=== PATIENT | female | born 1950 | race Caucasian/White ===

== ENCOUNTER 2024-10-24 08:32 | Outpatient (CLI) | payer MEDICARE, MEDICAID, SELFPAY ==
--- OUTSIDE RECORDS SUMMARY | 2024-10-24 08:59 | XMS_ITS ---
Author Organization [facility] Address [address] [place] [address] Phone Care Team Providers Care Tablet Technician Name Role Phone DANIEL DAWSON, DYLON Meadows Unavailable [phone] Problems Includes: Active, inactive, and resolved Problems All Visits Onset Date Resolved Date Provider Condition S tatus Osteopenia 07/19/2016 COREY NOLEN RN [facility] Active Last Documented On 6 10:34AM ; [facility] Dementia 07/19/2016 COREY NOLEN RN [facility] Active Last Documented On 6 10:34AM ; [facility] Intellectual Disabilities 07/19/2016 COREY VUONG RN [facility] Active Last Documented On 6 10:34AM ; [facility] Esophagitis Chronic Reflux 07/19/2016 COREY YANG RN [facility] Active Last Documented On 6 10:36AM ; [facility] Plan of Treatment Findings Encounter Date Ordered Clinical summary pro vided to patient ANNUAL SWAGE TOOLSETTER EXAM with COREY NOLEN RN [facility] 07/25/2018 Last Documented On 8 9:19AM ; [facility] Ordered weight loss diet ANNUAL SWAGE TOOLSETTER EXAM with JENNIFER NOLEN RN [facility] 07/25/2018 Last Documented On 8 9:19AM ; [facility] Ordered Clinical summary pro vided to patient NEW ORNAMENTAL METAL WORKER EXAM with COREY NOLEN RN [facility] 07/19/2016 Last Documented On 6 10:56AM ; [facility] Instructions to patient Instructions for patient : B reast Self Exam discussed and technique reviewed Last Documented On 8 9:05AM ; [facility] Instructed to call if excess osei bleeding or abdominal/pelvic pain Last Documented On 8 9:05AM ; [facility] Recommend diet and exercise at least 30 min three times per week Last Documented On 8 9:05AM ; [facility] Instructions For Patient: Mo nthly Self Breast Exam Last Documented On 6 10:38AM ; [facility] Recommend diet and exercise at least 30 min three times per week Last Documented On 6 10:38AM ; [facility] Education and Decision Aids were provided during visit for: Patient Education: Daily mookie cium and vitamin D Last Documented On 8 9:05AM ; [facility] Assessments Includes: Assessments for all patient encounters Findings Encounter Date NORMAL FEMALE EXAM ANNUAL SWAGE TOOLSETTER EXAM with COREY NOLEN RN [facility] 07/25/2018 Last Documented On 8 9:19AM ; [facility] Cutaneous candidiasis NEW ORNAMENTAL METAL WORKER EXAM with COREY NOLEN RN [facility] 07/19/2016 Last Documented On 6 10:56AM ; [facility] NORMAL FEMALE EXAM NEW ORNAMENTAL METAL WORKER EXAM with COREY ROBERTS RN [facility] 07/19/2016 Last Documented On 6 10:56AM ; [facility] Instructions Includes: Instructions for all patient encounters Instructions to patient Instructions for patient : B reast Self Exam discussed and technique reviewed Last Documented On 8 9:05AM ; [facility] Instructed to call if excess osei bleeding or abdominal/pelvic pain Last Documented On 8 9:05AM ; [facility] Recommend diet and exercise at least 30 min three times per week Last Documented On 8 9:05AM ; [facility] Instructions For Patient: Mo nthly Self Breast Exam Last Documented On 6 10:38AM ; [facility] Recommend diet and exercise at least 30 min three times per week Last Documented On 6 10:38AM ; [facility] Education and Decision Aids were provided during visit for: Patient Education: Daily mookie cium and vitamin D Last Documented On 8 9:05AM ; [facility] Medical Equipment - Implanted Devices Includes: Current and historical Devices No Medical Equipment Recorded Medications Includes: Current and historical Medications Current Medications (continue as prescribed) Diflucan 200MG Oral Tablet 07/25/2018 Provider: Diagnosis: One tablet by mouth daily every month on the Last Documented On 8 9:03AM By CHRIS ORTA ; [facility] Claritin 10MG Oral Tablet 07/25/2018 Provider: Diagnosis: Last Documented On 8 9:04AM By CHRIS ORTA ; [facility] Namenda XR 28MG Oral Capsule Extended Release 24 Hour 07/25/2018 Provider: Diagnosis: Last Documented On 8 9:04AM By CHRIS ORTA ; [facility] PriLOSEC OTC 20MG Oral Tablet Delayed Release 07/25/20 18 Provider: Diagnosis: Last Documented On 8 9:04AM By CHRIS ORTA ; [facility] [place] Nasal [place] 0.65% Solution 07/25/2018 Provider : Diagnosis: Last Documented On 8 9:04AM By CHRIS ORTA ; [facility] Oyst-Mookie-D 500 [id number] Oral Tablet 07/25/2018 Provider: Diagnosis: Last Documented On 8 9:05AM By CHRIS ORTA ; [facility] Aricept 10MG Oral Tablet 07/25/2018 Provider: Diagnosis: Last Documented On 8 9:05AM By CHRIS ORTA ; [facility] Tylenol 325MG Oral Capsule 07/25/2018 Provider: Diagnosis: Last Documented On 8 9:05AM By CHRIS ORTA ; [facility] Milk of Magnesia 7.75% Oral Suspension 07/25/2018 Pr ovider: Diagnosis: Last Documented On 8 9:05AM By CHRIS ORTA ; [facility] Robafen DM Clear 100-10MG/5ML Oral Syrup 07/25/2018 Provider: Diagnosis: Last Documented On 8 9:06AM By CHRIS ORTA ; [facility] Clotrimazole 1% External Cream 07/25/2018 Provider: Diagnosis: Last Documented On 8 9:06AM By CHRIS ORTA ; [facility] Triamcinolone Acetonide 0.1% External Cream 07/25/2018 Provider: Diagnosis: Last Documented On 8 9:07AM By CHRIS ORTA ; [facility] GNP Triple Antibiotic External Ointment 07/25/2018 P rovider: Diagnosis: Last Documented On 8 9:07AM By CHRIS ORTA ; [facility] Past Medications on file Nystatin [id number] UNIT/GM Cream 07/19/2016 - 08/02/2016 Provider: COREY NOLEN RN [facility] Diagnosis: Candidiasis of s kin and nail as directed APPLY 3 times da tung to affected area Last Documented On 6 10:55AM By COREY NOLEN [facility]- ; [facility] Medications Administered Includes: Administered Medications in patient's chart No Administered Medications Recorded Results Includes: Results from 10/25/2023 through 10/24/2024 No Results Recorded For Specified Dates History of Present Illness History of Present Illness not supported for this document type No History of Present Illness Recorded Social History Description Last Updated Alcohol use: 2 drinks or less per day no ne 07/25/2018 Last Documented On 8 9:19AM ; [facility] Non-smoker 07/25/2018 Last Documented On 8 9:19AM ; [facility] Activities 07/25/2018 Last Documented On 8 9:19AM ; [facility] Denied sexual activity 07/25/2018 Last Documented On 8 9:19AM ; [facility] Education history 07/25/2018 Last Documented On 8 9:19AM ; [facility] Not a smoker 07/25/2018 Last Documented On 8 9:19AM ; [facility] Not sexually active 07/25/2018 Last Documented On 8 9:19AM ; [facility] Personal history 07/25/2018 Last Documented On 8 9:19AM ; [facility] Single 07/25/2018 Last Documented On 8 9:19AM ; [facility] Smoking status : Former smoker 8 Last Documented On 8 9:19AM ; [facility] Procedures and Surgical History Surgical History Last Updated History of total abdominal h ysterectomy BSO 1992 unknown benign pathology 07/19/2016 Last Documented On 6 10:56AM ; [facility] History of hysterectomy 199207/19/2016 Last Documented On 6 10:56AM ; [facility] History of cholecystectomy 200307/19/20 16 Last Documented On 6 10:56AM ; [facility] Medical History Includes: Medical History in patient's chart Description Last Updated 0 07/25/2018 Last Documented On 8 9:19AM ; [facility] Patient recently had a dexa scan 016 07/25/2018 Last Documented On 8 9:19AM ; [facility] History of chronic reflux esophagitis Last Documented On 6 10:56AM ; [facility] A colonoscopy was performed 12/02/1512/2015 Last Documented On 6 10:56AM ; [facility] Last mammogram date: 12/15/2015 6 Last Documented On 6 10:56AM ; [facility] LMP: 199207/19/2016 Last Documented On 6 10:56AM ; [facility] Result: normal 07/19/2016 Last Documented On 6 10:56AM ; [facility] Family History Includes: Family History in patient's chart Description Last Updated Family history unchanged unknown 016 Last Documented On 6 10:56AM ; [facility] Review of Systems Review of Systems not supported for this document type No Review of Systems Recorded Mental Status Description Oriented to time, place, and person No anxiety A desire to continue living Functional Status No Functional Status Recorded Physical Exam Physical Exam not supported for this document type No Physical Exam Recorded Allergies Includes: Active, inactive, and resolved Allergies No Known Allergies Insurance Includes: Active Insurance Policies Plan Name Member ID Group # Subscriber Relationship Effect osei Dates 1 - [place]ARE [place] B [place] [id number] BRYAN K SUMMER Self 2 - IDPA MEDICARE SECONDARY NON [facility] [id number] BRYAN Han Clinical Notes Includes: Signed Clinical Notes starting from 09/03/2022 No Clinical Notes Recorded
--- OUTSIDE RECORDS SUMMARY | 2024-10-24 09:00 | XMS_ITS | Encounter Summary ---
Author Organization [facility] Address [address] [place] [address] Phone Care Team Providers Care Foreign Car Mechanic Name Role Phone Jeremias Dillon MD Unavailable [phone] Tashi Fuller MD Primary Care Provider [phone] Jeremias Dillon MD Primary Care Provider [phone] Encounter Details Date Type Department Care Team (Late st Contact Info) Description 05/19/2022 Lab Requisition [facility] Laboratory Services [address] [place] [phone] Tashi Fuller MD [address] [place] [address] [address] Encounter for screening for COVID-19 Social History Tobacco Use Types Packs/Day Years Used Date Smoking Tobacco: Never Smokeless Tobacco: Never Alcohol Use Standard Drinks/Week Comments Never 0 (1 standard drink = 0.6 oz pur e alcohol) AUDIT-C Answer Date Recorded Frequency of Alcohol Consumption Never 05/03/2019 Average Number of Drinks Not on file 019 Frequency of Binge Drinking Not on file 04/15 Comments No Sex and Gender Information Value Date Recorded Sex Assigned at Not on file Legal Sex Female 10:55 PM CDT Gender Identity Not on file Sexual Orientation Not on file documented as of this encounter Plan of Treatment Upcoming Encounters Date Type Department Care Team (Late st Contact Info) Description 11/15/2024 12:00 PM CDT [facility]ment [facility] [address] [place] [address] Jeremias Dillon MD [address] [place] [address] documented as of this encounter Procedures Procedure Name Priority Date/Time Associated Diagnosis Comments SARS-COV-2 BY MOLECULAR Routine 05/19/2022 7:30 AM CDT Encounter for screening for COVID-19 documented in this encounter Results * SARS-COV-2 BY MOLECULAR (05/19/2022 7:30 AM CDT) SARSCOV2 NOT DETECTED (Referen ce Range for this test is Not Detected ) [facility] THERMOFISHER FAST DX 05/20/2022 8:54 AM CDT [facility] Comment:This test was perfor med by a RT-PCR method. Other Non-Phlebotomy Collection / Unknown 05/19/2022 7:30 AM CDT 05/19/2022 1:38 PM CDT Narrative [facility] - 05/20/2022 8:54 AM CDT Authorized Fact Sheets about this test for providers and patients are available at: https://www.fda.gov/medical-devices/avgfrltam-evqkkbmlou-vqrbmtu-devices/emergen -us e-authorizations us Tashi Fuller MD MICROBIOLOGY - GENERAL ORDERAB LES Final Result [facility] [address] [place] [address], documented in this encounter Visit Diagnoses Diagnosis Encounter for screening for COVID-19 documented in this encounter Additional Health Concerns Infection Onset Date Last Indicated Resolved Time COVID - 19 12/16/2021 06/23/2022 07/03/2022 12:1 6 AM TERRITORY MANAGER COVID - 19 08/11/2022 10/27/2022 11/06/2022 12:1 6 AM CDT documented as of this encounter Care Teams Foreign Car Mechanic Relationship Specialty Start Date End Date Tashi Fuller MD [address] [place] [address] [address] [place] [address] PCP - General Family Medicine 04/13/22 07/04/23 Jeremias Dillon MD [address] [facility] [address] [place] [address] PCP - General Internal Medicine 07/05/23 Jeremias Dillon MD [address] [facility] [address] [place] [address] Internal Medicine 07/08/21 documented as of this encounter
--- OUTSIDE RECORDS SUMMARY | 2024-10-24 09:00 | XMS_ITS | Encounter Summary ---
Author Organization [facility] Address [address] [place] [address] Phone Care Team Providers Care Practical Ministries Professor Name Role Phone Jeremias Dillon MD Unavailable [phone] Tashi Fuller MD Primary Care Provider [phone] Jeremias Dillon MD Primary Care Provider [phone] Encounter Details Date Type Department Care Team (Late st Contact Info) Description 09/01/2022 Lab Requisition [facility] Laboratory Services [address] [place] [phone] Tashi Fuller MD [address] [place] [address] [address] Encounter for screening for COVID-19 [...] Info) Description 11/15/2024 12:00 PM CDT [facility] [address] [place] [address] Jeremias Dillon MD [address] [place] [address] documented as of this encounter Procedures Procedure Name Priority Date/Time Associated Diagnosis Comments SARS-COV-2 BY MOLECULAR Routine 09/01/2022 7:17 AM DENTAL AMALGAM PROCESSOR Encounter for screening for COVID-19 documented in this encounter Results * SARS-COV-2 BY MOLECULAR (09/01/2022 7:17 AM DENTAL AMALGAM PROCESSOR) SARSCOV2 NOT DETECTED (Referen ce Range for this test is Not Detected ) [facility] THERMOFISHER FAST DX 09/01/2022 8:36 PM DENTAL AMALGAM PROCESSOR [facility] Comment:This test was perfor med by a RT-PCR method. Other COVID 19 Collection / Unknown 09/01/2022 7:17 AM DENTAL AMALGAM PROCESSOR 09/01/2022 10:05 AM DENTAL AMALGAM PROCESSOR Narrative [facility] - 09/01/2022 8:36 PM DENTAL AMALGAM PROCESSOR Authorized Fact Sheets about this test for providers and patients are available at: https://www.fda.gov/medical-devices/jvqcudmta-hykmsyatbr-cdrpsoc-devices/emergen -us e-authorizations Result [facility] Tashi Fuller MD MICROBIOLOGY - GENERAL ORDERAB LES Final Result [facility] [address] [place] [address], documented in this encounter Visit Diagnoses Diagnosis Encounter for screening for COVID-19 documented in this encounter Additional Health Concerns Infection Onset Date Last Indicated Resolved Time COVID - 19 08/11/2022 10/27/2022 11/06/2022 12:1 6 AM CDT documented as of this encounter Care Teams Practical Ministries Professor Relationship Specialty Start Date End Date Tashi Fuller MD [address] [place] [address] [address] [place] [address] PCP - General Family Medicine 04/13/22 07/04/23 Jeremias Dillon MD [address] [place] [address] PCP - General Internal Medicine 07/05/23 Jeremias Dillon MD [address] [place] [address] Internal Medicine 07/08/21 documented as of this encounter
--- OUTSIDE RECORDS SUMMARY | 2024-10-24 09:00 | XMS_ITS | Encounter Summary ---
Author Organization [facility] Address [address] [place] [address] Phone Care Team Providers Care Macaroni Press Operator Name Role Phone Jeremias Dillon MD Unavailable [phone] Tashi Fuller MD Primary Care Provider [phone] Jeremias Dillon MD Primary Care Provider [phone] Encounter Details Date Type Department Care Team (Late st Contact Info) Description 10/06/2022 Lab Requisition [facility] Laboratory Services [address] [place] [phone] Tashi Fuller MD [address] [place] [address] [address] Encounter for screening for COVID-19 [...] Info) Description 11/15/2024 12:00 PM CDT [facility] [address] [place] [address] Jeremias Dillon MD [address] [place] [address] documented as of this encounter Procedures Procedure Name Priority Date/Time Associated Diagnosis Comments SARS-COV-2 BY MOLECULAR Routine 10/06/2022 7:35 AM LINUX PROGRAMMER Encounter for screening for COVID-19 documented in this encounter Results * SARS-COV-2 BY MOLECULAR (10/06/2022 7:35 AM LINUX PROGRAMMER) SARSCOV2 NOT DETECTED (Referen ce Range for this test is Not Detected ) [facility] THERMOFISHER FAST DX 10/07/2022 12:34 AM LINUX PROGRAMMER [facility] Comment:This test was perfor med by a RT-PCR method. Other Non-Phlebotomy Collection / Unknown 10/06/2022 7:35 AM LINUX PROGRAMMER 10/06/2022 10:23 AM LINUX PROGRAMMER Narrative [facility] - 10/07/2022 12:34 AM LINUX PROGRAMMER Authorized Fact Sheets about this test for providers and patients are available at: https://www.fda.gov/medical-devices/oxemwfnqn-darlmlhlrf-zfdgwsl-devices/emergen -us e-authorizations Result [facility] Tashi Fuller MD MICROBIOLOGY - GENERAL ORDERAB LES Final Result [facility] [address] [place] [address], documented in this encounter Visit Diagnoses Diagnosis Encounter for screening for COVID-19 documented in this encounter Additional Health Concerns Infection Onset Date Last Indicated Resolved Time COVID - 19 08/11/2022 10/27/2022 11/06/2022 12:1 6 AM CDT documented as of this encounter Care Teams Macaroni Press Operator Relationship Specialty Start Date End Date Tashi Fuller MD [address] [place] [address] [address] [place] [address] PCP - General Family Medicine 04/13/22 07/04/23 Jeremias Dillon MD [address] [place] [address] PCP - General Internal Medicine 07/05/23 Jeremias Dillon MD [address] [place] [address] Internal Medicine 07/08/21 documented as of this encounter
--- OUTSIDE RECORDS SUMMARY | 2024-10-24 09:00 | XMS_ITS | Encounter Summary ---
Author Organization [facility] Address [address] [place] [address] Phone Care Team Providers Care Screen Printing Machine Operator Helper Name Role Phone Provider, Unknown Primary Care Provider Unavaila ble Jeremias Dillon MD Unavailable [phone] Tashi Fuller MD Primary Care Provider [phone] Jeremias Dillon MD Primary Care Provider [phone] Encounter Details Date Type Department Care Team (Late st Contact Info) Description 07/15/2021 Lab Requisition [facility] Laboratory Services [address] [place] [phone] Tashi Fuller MD [address] [place] [address] [facility] [address] [place] [address] Social History Tobacco Use Types Packs/Day Years [...] Info) Description 11/15/2024 12:00 PM CDT [facility] [address] [place] [phone] Jeremias Dillon MD [address] [place] [address] documented as of this encounter Procedures Procedure Name Priority Date/Time Associated Diagnosis Comments SARS-COV-2 BY MOLECULAR Routine 07/15/2021 7:21 AM LINE MOVER documented in this encounter Results * SARS-COV-2 BY MOLECULAR (07/15/2021 7:21 AM LINE MOVER) SARSCOV2 NOT DETECTED (Referen ce Range for this test is Not Detected ) [facility] THERMOFISHER FAST DX 07/15/2021 11:54 PM LINE MOVER [facility] Comment:This test was perfor med by a RT-PCR method. Other Non-Phlebotomy Collection / Unknown 07/15/2021 7:21 AM LINE MOVER 07/15/2021 11:24 AM LINE MOVER Narrative [facility] - 07/15/2021 11:54 PM LINE MOVER Authorized Fact Sheets about this test for providers and patients are available at: https://www.fda.gov/medical-devices/gepoicxlx-ealasprmsx-pzqcpfy-devices/emergen -us e-authorizations Tashi Fuller MD MICROBIOLOGY - GENERAL ORDERAB LES Final Result [facility] [address] [place] [address], documented in this encounter Visit Diagnoses Not on filedocumented in this encounter Additional Health Concerns Infection Onset Date Last Indicated Resolved Time COVID - 19 05/13/2021 08/19/2021 08/21/2021 7:20 PM LINE MOVER COVID - 19 07/08/2021 08/19/2021 08/21/2021 7:20 PM LINE MOVER COVID - 19 Confirmed 08/19/2021 08/26/2021 022 12:16 AM LINE MOVER COVID - 19 08/26/2021 08/26/2021 08/28/2021 6:12 AM LINE MOVER COVID - 19 09/23/2021 09/23/202110/1310/13/2021 12:1 6 AM LINE MOVER COVID - 19 12/02/2021 12/02/2021 12/02/2021 11:1 1 PM CDT COVID - 19 Confirmed 12/02/2021 12/02/2021 022 12:16 AM CDT COVID - 19 12/16/2021 06/23/2022 07/03/2022 12:1 6 AM LINE MOVER COVID - 19 08/11/2022 10/27/2022 11/06/2022 12:1 6 AM CDT documented as of this encounter Care Teams Screen Printing Machine Operator Helper Relationship Specialty Start Date End Date Provider, Unknown UNKNOWN PCP - General 07/08/21 04/12/22 Tashi Fuller MD [address] [facility] [address] [place] [address] PCP - General Family Medicine 04/13/22 07/04/23 Jeremias Dillon MD [address] [facility] [address] [place] [address] PCP - General Internal Medicine 07/05/23 Jeremias Dillon MD [address] [facility] [address] [place] [address] Internal Medicine 07/08/21 documented as of this encounter
--- OUTSIDE RECORDS SUMMARY | 2024-10-24 09:00 | XMS_ITS | Encounter Summary ---
Author Organization [facility] Address [address] [place] [address] Phone Care Team Providers Care Fruit Grader Operator Name Role Phone Provider, Unknown Primary Care Provider Unavaila ble Jeremias Dillon MD Unavailable [phone] Tashi Fuller MD Primary Care Provider [phone] Jeremias Dillon MD Primary Care Provider [phone] Encounter Details Date Type Department Care Team (Late st Contact Info) Description 04/07/2022 Lab Requisition [facility] Laboratory Services 1 [place] [phone] Tashi Fuller MD [address] [place] [address] [facility] [address] [place] [address] Encounter for screening for COVID-19 Social [...] Info) Description 11/15/2024 12:00 PM CDT [facility]ointment [facility] 1 [place] [phone] Jeremias Dillon MD [address] [place] [address] documented as of this encounter Procedures Procedure Name Priority Date/Time Associated Diagnosis Comments SARS-COV-2 BY MOLECULAR Routine 04/07/2022 6:55 AM CDT Encounter for screening for COVID-19 documented in this encounter Results * SARS-COV-2 BY MOLECULAR (04/07/2022 6:55 AM CDT) SARSCOV2 NOT DETECTED (Referen ce Range for this test is Not Detected ) [facility] THERMOFISHER FAST DX 04/08/2022 8:39 AM CDT [facility] Comment:This test was perfor med by a RT-PCR method. Other Non-Phlebotomy Collection / Unknown 04/07/2022 6:55 AM CDT 04/07/2022 11:33 AM CDT Narrative [facility] - 04/08/2022 8:39 AM CDT Authorized Fact Sheets about this test for providers and patients are available at: https://www.fda.gov/medical-devices/aierdpdzl-dmoptersia-nmtanzm-devices/emergen -us e-authorizations us Tashi Fuller MD MICROBIOLOGY - GENERAL ORDERAB LES Final Result [facility] [address] [place] [address], documented in this encounter Visit Diagnoses Diagnosis Encounter for screening for COVID-19 documented in this encounter Additional Health Concerns Infection Onset Date Last Indicated Resolved Time COVID - 19 12/16/2021 06/23/2022 07/03/2022 12:1 6 AM ELECTRONIC MAINTENANCE SUPERVISOR COVID - 19 08/11/2022 10/27/2022 11/06/2022 12:1 6 AM CDT documented as of this encounter Care Teams Fruit Grader Operator Relationship Specialty Start Date End Date Provider, Unknown UNKNOWN PCP - General 07/08/21 04/12/22 Tashi Fuller MD [address] [facility] [address] [place] [address] PCP - General Family Medicine 04/13/22 07/04/23 Jeremias Dillon MD [address] [facility] 160 [place] [address] PCP - General Internal Medicine 07/05/23 Jeremias Dillon MD [address] [facility] 160 [place] [address] Internal Medicine 07/08/21 documented as of this encounter
--- OUTSIDE RECORDS SUMMARY | 2024-10-24 09:00 | XMS_ITS | Encounter Summary ---
Author Organization [facility] Address [address] [place] [address] Phone Care Team Providers Care Clinical Research Assistant Name Role Phone Provider, Unknown Primary Care Provider Unavaila ble Jeremias Dillon MD Unavailable [phone] Tashi Fuller MD Primary Care Provider [phone] Jeremias Dillon MD Primary Care Provider [phone] Encounter Details Date Type Department Care Team (Late st Contact Info) Description 02/17/2022 Lab Requisition [facility] Laboratory Services 1 [place] [phone] Tashi Fuller MD [address] [place] [address] [facility] [address] [place] [address] Encounter for screening for COVID-19 [...] Info) Description 11/15/2024 12:00 PM CDT [facility] 1 [place] [phone] Jeremias Dlilon MD [address] [place] [address] documented as of this encounter Procedures Procedure Name Priority Date/Time Associated Diagnosis Comments SARS-COV-2 BY MOLECULAR Routine 02/17/2022 8:24 AM CDT Encounter for screening for COVID-19 documented in this encounter Results * SARS-COV-2 BY MOLECULAR (02/17/2022 8:24 AM CDT) SARSCOV2 NOT DETECTED (Referen ce Range for this test is Not Detected ) [facility] THERMOFISHER FAST DX 02/18/2022 12:15 AM CDT [facility] Comment:This test was perfor med by a RT-PCR method. Other Non-Phlebotomy Collection / Unknown 02/17/2022 8:24 AM CDT 02/17/2022 11:33 AM CDT Narrative [facility] - 02/18/2022 12:15 AM CDT Authorized Fact Sheets about this test for providers and patients are available at: https://www.fda.gov/medical-devices/tenipcyis-griaqxqmnz-pxfpvew-devices/emergen -us e-authorizations us Tashi Fuller MD MICROBIOLOGY - GENERAL ORDERAB LES Final Result [facility] [address] [place] [address], documented in this encounter Visit Diagnoses Diagnosis Encounter for screening for COVID-19 documented in this encounter Additional Health Concerns Infection Onset Date Last Indicated Resolved Time COVID - 19 12/16/2021 06/23/2022 07/03/2022 12:1 6 AM 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 LIFT 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 COVID - 19 08/11/2022 10/27/2022 11/06/2022 12:1 6 AM CDT documented as of this encounter Care Teams Clinical Research Assistant Relationship Specialty Start Date End Date Provider, Unknown UNKNOWN PCP - General 07/08/21 04/12/22 Tashi Fuller MD [address] [facility] [address] [place] [address] PCP - General Family Medicine 04/13/22 07/04/23 Jeremias Dillon MD [address] [facility] 160 [place] [address] PCP - General Internal Medicine 07/05/23 Jeremias Dillon MD [address] [facility] [address] [place] [address] Internal Medicine 07/08/21 documented as of this encounter
--- OUTSIDE RECORDS SUMMARY | 2024-10-24 09:00 | XMS_ITS | Encounter Summary ---
Author Organization [facility] Address [address] [place] [address] Phone Care Team Providers Care Electric Organ Inspector And Repairer Name Role Phone Jeremias Dillon MD Unavailable [phone] Tashi Fuller MD Primary Care Provider [phone] Jeremias Dillon MD Primary Care Provider [phone] Encounter Details Date Type Department Care Team (Late st Contact Info) Description 05/05/2022 Lab Requisition [facility] Laboratory Services 1 [place] [phone] Tashi Fuller MD [address] [place] [address] [address] Encounter for screening for COVID-19 [...] Info) Description 11/15/2024 12:00 PM CDT [facility] 1 [place] [address] Jeremias Dillon MD [address] [place] [address] documented as of this encounter Procedures Procedure Name Priority Date/Time Associated Diagnosis Comments SARS-COV-2 BY MOLECULAR Routine 05/05/2022 7:16 AM CDT Encounter for screening for COVID-19 documented in this encounter Results * SARS-COV-2 BY MOLECULAR (05/05/2022 7:16 AM CDT) SARSCOV2 NOT DETECTED (Referen ce Range for this test is Not Detected ) [facility] THERMOFISHER FAST DX 05/06/2022 12:20 PM CDT [facility] Comment:This test was perfor med by a RT-PCR method. Other Non-Phlebotomy Collection / Unknown 05/05/2022 7:16 AM CDT 05/05/2022 11:32 AM CDT Narrative [facility] - 05/06/2022 12:20 PM CDT Authorized Fact Sheets about this test for providers and patients are available at: https://www.fda.gov/medical-devices/fnwnsfthn-wnhmpgmzmo-orxzkua-devices/emergen -us e-authorizations us Tashi Fuller MD MICROBIOLOGY - GENERAL ORDERAB LES Final Result [facility] [address] [place] [address], documented in this encounter Visit Diagnoses Diagnosis Encounter for screening for COVID-19 documented in this encounter Additional Health Concerns Infection Onset Date Last Indicated Resolved Time COVID - 19 12/16/2021 06/23/2022 07/03/2022 12:1 6 AM RECRUITING OPERATIONS CONSULTANT COVID - 19 08/11/2022 10/27/2022 11/06/2022 12:1 6 AM CDT documented as of this encounter Care Teams Electric Organ Inspector And Repairer Relationship Specialty Start Date End Date Tashi Fuller MD [address] [place] [address] [address] [place] [address] PCP - General Family Medicine 04/13/22 07/04/23 Jeremais Dillon MD [address] [facility] [address] [place] [address] PCP - General Internal Medicine 07/05/23 Jeremias Dillon MD [address] [facility] [address] [place] [address] Internal Medicine 07/08/21 documented as of this encounter
--- OUTSIDE RECORDS SUMMARY | 2024-10-24 09:00 | XMS_ITS | Encounter Summary ---
Author Organization [facility] Address [address] [place] [address] Phone Care Team Providers Care Wigs Salesperson Name Role Phone Provider, Unknown Primary Care Provider Unavaila ble Jeremias Dillon MD Unavailable [phone] Tashi Fuller MD Primary Care Provider [phone] Jeremias Dillon MD Primary Care Provider [phone] Encounter Details Date Type Department Care Team (Late st Contact Info) Description 01/06/2022 Lab Requisition [facility] Laboratory Services 1 [place] [phone] Tashi Fuller MD [address] [place] [address] [facility] 210 [place] [address] Encounter for screening for COVID-19 [...] [facility] 1 [place] [phone] Jeremias Dillon MD [address] [place] [address] documented as of this encounter Procedures Procedure Name Priority Date/Time Associated Diagnosis Comments SARS-COV-2 BY MOLECULAR Routine 01/06/2022 6:58 AM CDT Encounter for screening for COVID-19 documented in this encounter Results * SARS-COV-2 BY MOLECULAR (01/06/2022 6:58 AM CDT) SARSCOV2 NOT DETECTED (Referen ce Range for this test is Not Detected ) [facility] THERMOFISHER FAST DX 01/07/2022 9:19 AM CDT [facility] Comment:This test was perfor med by a RT-PCR method. Other Non-Phlebotomy Collection / Unknown 01/06/2022 6:58 AM CDT 01/06/2022 10:06 AM CDT Narrative [facility] - 01/07/2022 9:19 AM CDT Authorized Fact Sheets about this test for providers and patients are available at: https://www.fda.gov/medical-devices/pjsowrdcq-gwvaeclcjd-vbhwosm-devices/emergen -us e-authorizations us Tashi Fuller MD MICROBIOLOGY - GENERAL ORDERAB LES Final Result [facility] [address] [place] [address], documented in this encounter Visit Diagnoses Diagnosis Encounter for screening for COVID-19 documented in this encounter Additional Health Concerns Infection Onset Date Last Indicated Resolved Time COVID - 19 12/16/2021 06/23/2022 07/03/2022 12:1 6 AM 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 COVID - 19 08/11/2022 10/27/2022 11/06/2022 12:1 6 AM CDT documented as of this encounter Care Teams Wigs Salesperson Relationship Specialty Start Date End Date Provider, Unknown UNKNOWN PCP - General 07/08/21 04/12/22 Tashi Fuller MD [address] [facility] [address] [place] [address] PCP - General Family Medicine 04/13/22 07/04/23 Jeremias Dillon MD [address] [facility] 160 [place] [address] PCP - General Internal Medicine 07/05/23 Jeremias Dillon MD [address] [facility] 160 [place] [address] Internal Medicine 07/08/21 documented as of this encounter
--- OUTSIDE RECORDS SUMMARY | 2024-10-24 09:00 | XMS_ITS | Encounter Summary ---
Author Organization [facility] Address [address] [place] [address] Phone Care Team Providers Care Metal Tube Cutter Name Role Phone Jeremias Dillon MD Unavailable [phone] Tashi Fuller MD Primary Care Provider [phone] Jeremias Dillon MD Primary Care Provider [phone] Encounter Details Date Type Department Care Team (Late st Contact Info) Description 04/21/2022 Lab Requisition [facility] Laboratory Services 1 [place] [phone] Tashi Fuller MD [address] [place] [address] [address] Encounter for screening for COVID-19 [...] 11/15/2024 12:00 PM CDT [facility]ment [facility] 1 [place] [address] Jeremias Dillon MD [address] [place] [address] documented as of this encounter Procedures Procedure Name Priority Date/Time Associated Diagnosis Comments SARS-COV-2 BY MOLECULAR Routine 04/21/2022 7:23 AM CDT Encounter for screening for COVID-19 documented in this encounter Results * SARS-COV-2 BY MOLECULAR (04/21/2022 7:23 AM CDT) SARSCOV2 NOT DETECTED (Referen ce Range for this test is Not Detected ) [facility] THERMOFISHER FAST DX 04/22/2022 8:21 AM CDT [facility] Comment:This test was perfor med by a RT-PCR method. Other COVID 19 Home Health[facility] Collection / Unknown 04/21/2022 7:23 AM CDT 04/21/2022 1:44 PM CDT Narrative [facility] - 04/22/2022 8:21 AM CDT Authorized Fact Sheets about this test for providers and patients are available at: https://www.fda.gov/medical-devices/vwbbysuhk-wbuefnmjov-oxeswbj-devices/emergen -us e-authorizations us Tashi Fuller MD MICROBIOLOGY - GENERAL ORDERAB LES Final Result [facility] [address] [place] [address], documented in this encounter Visit Diagnoses Diagnosis Encounter for screening for COVID-19 documented in this encounter Additional Health Concerns Infection Onset Date Last Indicated Resolved Time COVID - 19 12/16/2021 06/23/2022 07/03/2022 12:1 6 AM BOARD WRITER COVID - 19 08/11/2022 10/27/2022 11/06/2022 12:1 6 AM CDT documented as of this encounter Care Teams Metal Tube Cutter Relationship Specialty Start Date End Date Tashi Fuller MD [address] [place] [address] [address] [place] [address] PCP - General Family Medicine 04/13/22 07/04/23 Jeremias Dillon MD [address] [address] PCP - General Internal Medicine 07/05/23 Jeremias Dillon MD [address] [address] Internal Medicine 07/08/21 documented as of this encounter
--- OUTSIDE RECORDS SUMMARY | 2024-10-24 09:00 | XMS_ITS | Encounter Summary ---
Author Organization [facility] Address [address] [place] [address] Phone Care Team Providers Care Director Environmental Name Role Phone Jeremias Dillon MD Unavailable Tashi Fuller MD Primary Care Provider [phone] Jeremias Dillon MD Primary Care Provider [phone] Encounter Details Date Type Department Care Team (Late st Contact Info) Description 06/16/2022 Lab Requisition [facility] Laboratory Services 1 [place] [phone] Tashi Fuller MD [address] [place] [address] [address] Encounter for screening for COVID-19 [...] Info) Description 11/15/2024 12:00 PM CDT [facility] 1 [place] [address] Jeremias Dillon MD [address] [place] [address] documented as of this encounter Procedures Procedure Name Priority Date/Time Associated Diagnosis Comments SARS-COV-2 BY MOLECULAR Routine 06/16/2022 7:33 AM CDT Encounter for screening for COVID-19 documented in this encounter Results * SARS-COV-2 BY MOLECULAR (06/16/2022 7:33 AM CDT) SARSCOV2 NOT DETECTED (Referen ce Range for this test is Not Detected ) [facility] THERMOFISHER FAST DX 06/17/2022 12:01 AM CDT [facility] Comment:This test was perfor med by a RT-PCR method. Other Non-Phlebotomy Collection / Unknown 06/16/2022 7:33 AM CDT 06/16/2022 12:58 PM CDT Narrative [facility] - 06/17/2022 12:01 AM CDT Authorized Fact Sheets about this test for providers and patients are available at: https://www.fda.gov/medical-devices/rqaagwoed-olrmgniydn-bgboubu-devices/emergen -us e-authorizations us Tashi Fuller MD MICROBIOLOGY - GENERAL ORDERAB LES Final Result [facility] [address] [place] [address], documented in this encounter Visit Diagnoses Diagnosis Encounter for screening for COVID-19 documented in this encounter Additional Health Concerns Infection Onset Date Last Indicated Resolved Time COVID - 19 12/16/2021 06/23/2022 07/03/2022 12:1 6 AM PLASTER 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
--- OUTSIDE RECORDS SUMMARY | 2024-10-24 09:00 | XMS_ITS | Encounter Summary ---
Author Organization [facility] Address [address] [place] [address] Phone Care Team Providers Care Spring Coiling Machine Setter Name Role Phone Provider, Unknown Primary Care Provider Unavaila ble Jeremias Dillon MD Unavailable [phone] Tashi Fuller MD Primary Care Provider [phone] Jeremias Dillon MD Primary Care Provider [phone] Encounter Details Date Type Department Care Team (Late st Contact Info) Description 12/16/2021 Lab Requisition [facility] Laboratory Services 1 [place] [phone] Tashi Fuller MD [address] [place] [address] [facility] [address] [place] [address] Encounter for screening for COVID-19 [...] 11/15/2024 12:00 PM CDT [facility] 1 [place] [phone] Jeremias Dillon MD [address] [place] [address] documented as of this encounter Procedures Procedure Name Priority Date/Time Associated Diagnosis Comments SARS-COV-2 BY MOLECULAR Routine 12/16/2021 7:07 AM CDT Encounter for screening for COVID-19 documented in this encounter Results * SARS-COV-2 BY MOLECULAR (12/16/2021 7:07 AM CDT) SARSCOV2 NOT DETECTED (Referen ce Range for this test is Not Detected ) [facility] THERMOFISHER FAST DX 12/16/2021 11:33 PM CDT [facility] Comment:This test was perfor med by a RT-PCR method. Other Non-Phlebotomy Collection / Unknown 12/16/2021 7:07 AM CDT 12/16/2021 12:49 PM CDT Narrative [facility] - 12/16/2021 11:33 PM CDT Authorized Fact Sheets about this test for providers and patients are available at: https://www.fda.gov/medical-devices/sgunqyuis-egsbovdyth-hdyegwc-devices/emergen -us e-authorizations us Tashi Fuller MD MICROBIOLOGY - GENERAL ORDERAB LES Final Result [facility] 530 [facility] [place] [address], documented in this encounter Visit Diagnoses Diagnosis Encounter for screening for COVID-19 documented in this encounter Additional Health Concerns Infection Onset Date Last Indicated Resolved Time COVID - 19 Confirmed 12/02/2021 12/02/2021 022 12:16 AM CDT COVID - 19 12/16/2021 06/23/2022 07/03/2022 12:1 6 AM HISTORY TUTOR COVID - 19 08/11/2022 10/27/2022 11/06/2022 12:1 6 AM CDT documented as of this encounter Care Teams Spring Coiling Machine Setter Relationship Specialty Start Date End Date Provider, Unknown UNKNOWN PCP - General 07/08/21 04/12/22 Tashi Fuller MD [address] [place] [address] [facility] [address] [place] [address] PCP - General Family Medicine 04/13/22 07/04/23 Jeremias Dillon MD [address] [address] PCP - General Internal Medicine 07/05/23 Jeremias Dillon MD [address] [address] Internal Medicine 07/08/21 documented as of this encounter
--- OUTSIDE RECORDS SUMMARY | 2024-10-24 09:00 | XMS_ITS | Encounter Summary ---
Author Organization [facility] Address [address] [place] [address] Phone Care Team Providers Care Windows Phone Developer Name Role Phone Jeremias Dillon MD Primary Care Provider [phone] Provider, Unknown Primary Care Provider Unavaila ble Jeremias Dillon MD Unavailable [phone] Tashi Fuller MD Primary Care Provider [phone] Jeremias Dillon MD Primary Care Provider [phone] Encounter Details Date Type Department Care Team (Late st Contact Info) Description 06/24/2021 Lab Requisition [facility] Laboratory Services 1 [place] [address] Tashi Fuller MD [address] [place] [address] [address] Social History Tobacco Use Types Packs/Day Years [...] 11/15/2024 12:00 PM CDT [facility] 1 [place] [address] Jeremias Dillon MD [address] [place] [address] documented as of this encounter Procedures Procedure Name Priority Date/Time Associated Diagnosis Comments SARS-COV-2 BY MOLECULAR Routine 06/24/2021 7:26 AM DIRECTOR OF MANUFACTURING documented in this encounter Results * SARS-COV-2 BY MOLECULAR (06/24/2021 7:26 AM DIRECTOR OF MANUFACTURING) SARSCOV2 NOT DETECTED (Referen ce Range for this test is Not Detected ) [facility] THERMOFISHER FAST DX 06/25/2021 10:05 AM DIRECTOR OF MANUFACTURING [facility] Comment:This test was perfor med by a RT-PCR method. Other Non-Phlebotomy Collection / Unknown 06/24/2021 7:26 AM DIRECTOR OF MANUFACTURING 06/24/2021 10:16 AM DIRECTOR OF MANUFACTURING Narrative [facility] - 06/25/2021 10:05 AM DIRECTOR OF MANUFACTURING Authorized Fact Sheets about this test for providers and patients are available at: https://www.fda.gov/medical-devices/psuxdxlap-tawwissezt-ckdxfiv-devices/emergen -us e-authorizations us Tashi Fuller MD MICROBIOLOGY - GENERAL ORDERAB LES Final Result [facility] [address] [facility] [place] [address], documented in this encounter Visit Diagnoses Not on filedocumented in this encounter Additional Health Concerns Infection Onset Date Last Indicated Resolved Time COVID - 19 05/13/2021 08/19/2021 08/21/2021 7:20 PM DIRECTOR OF MANUFACTURING COVID - 19 07/08/2021 08/19/2021 08/21/2021 7:20 PM DIRECTOR OF MANUFACTURING COVID - 19 Confirmed 08/19/2021 08/26/2021 022 12:16 AM DIRECTOR OF MANUFACTURING COVID - 19 08/26/2021 08/26/2021 08/28/2021 6:12 AM DIRECTOR OF MANUFACTURING COVID - 19 09/23/2021 09/23/2021 10/13/2021 12:1 6 AM DIRECTOR OF MANUFACTURING COVID - 19 12/02/2021 12/02/2021 12/02/2021 11:1 1 PM CDT COVID - 19 Confirmed 12/02/2021 12/02/2021 022 12:16 AM CDT COVID - 19 12/16/2021 06/23/2022 07/03/2022 12:1 6 AM DIRECTOR OF MANUFACTURING COVID - 19 08/11/2022 10/27/2022 11/06/2022 12:1 6 AM CDT documented as of this encounter Care Teams Windows Phone Developer Relationship Specialty Start Date End Date Jeremias Dillon MD [address] [facility] [address] [place] [address] PCP - General Internal Medicine 07/21/16 07/07/21 Provider, Unknown UNKNOWN PCP - General 07/08/21 04/12/22 Tashi Fuller MD 4 [facility] [address] [place] [address] PCP - General Family Medicine 04/13/22 07/04/23 Jeremias Dillon MD [address] [facility] [address] [place] [address] PCP - General Internal Medicine 07/05/23 Jeremias Dillon MD [address] [place] [address] Internal Medicine 07/08/21 documented as of this encounter
--- OUTSIDE RECORDS SUMMARY | 2024-10-24 09:00 | XMS_ITS | Encounter Summary ---
Author Organization [facility] Address [address] [place] [address] Phone Care Team Providers Care Chemical Machine Tender Name Role Phone Provider, Unknown Primary Care Provider Unavaila ble Jeremias Dillon MD Unavailable [phone] Tashi Fuller MD Primary Care Provider [phone] Jeremias Dillon MD Primary Care Provider [phone] Encounter Details Date Type Department Care Team (Late st Contact Info) Description 01/13/2022 Lab Requisition [facility] Laboratory Services 1 [place] [phone] Tashi Fuller MD [address] [place] [address] [facility] [address] [place] [address] Encounter for screening for COVID-19 [...] 11/15/2024 12:00 PM CDT [facility] 1 [place] [phone] Jeremias Dillon MD [address] [place] [address] documented as of this encounter Procedures Procedure Name Priority Date/Time Associated Diagnosis Comments SARS-COV-2 BY MOLECULAR Routine 01/13/2022 7:17 AM CDT Encounter for screening for COVID-19 documented in this encounter Results * SARS-COV-2 BY MOLECULAR (01/13/2022 7:17 AM CDT) SARSCOV2 NOT DETECTED (Referen ce Range for this test is Not Detected ) [facility] THERMOFISHER FAST DX 01/14/2022 8:04 AM CDT [facility] Comment:This test was perfor med by a RT-PCR method. Other Non-Phlebotomy Collection / Unknown 01/13/2022 7:17 AM CDT 01/13/2022 12:46 PM CDT Narrative [facility] - 01/14/2022 8:04 AM CDT Authorized Fact Sheets about this test for providers and patients are available at: https://www.fda.gov/medical-devices/gqwuzsvhg-rebbcwczqr-zpcojvh-devices/emergen -us e-authorizations us Tashi Fuller MD MICROBIOLOGY - GENERAL ORDERAB LES Final Result [facility] [address] [place] [address], documented in this encounter Visit Diagnoses Diagnosis Encounter for screening for COVID-19 documented in this encounter Additional Health Concerns Infection Onset Date Last Indicated Resolved Time COVID - 19 12/16/2021 06/23/2022 07/03/2022 12:1 6 AM ELECTRICAL ELECTRONICS 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 COVID - 19 08/11/2022 10/27/2022 11/06/2022 12:1 6 AM CDT documented as of this encounter Care Teams Chemical Machine Tender Relationship Specialty Start Date End Date Provider, Unknown UNKNOWN PCP - General 07/08/21 04/12/22 Tashi Fuller MD [address] [facility] [address] [place] [address] PCP - General Family Medicine 04/13/22 07/04/23 Jeremias Dillon MD [address] [facility] 160 [place] [address] PCP - General Internal Medicine 07/05/23 Jeremias Dillon MD [address] [facility] [address] [place] [address] Internal Medicine 07/08/21 documented as of this encounter
--- OUTSIDE RECORDS SUMMARY | 2024-10-24 09:00 | XMS_ITS | Encounter Summary ---
Author Organization [facility] Address [address] [place] [address] Phone Care Team Providers Care Section Hand Name Role Phone Jeremias Dillon MD Primary Care Provider [phone] Provider, Unknown Primary Care Provider Unavaila ble Jeremias Dillon MD Unavailable [phone] Tashi Fuller MD Primary Care Provider [phone] Jeremias Dillon MD Primary Care Provider [phone] Encounter Details Date Type Department Care Team (Late st Contact Info) Description 06/10/2021 Lab Requisition [facility] Laboratory Services 1 [place] [address] Tashi Fuller MD [address] [place] [address] [address] Encounter for screening for other bacterial diseases Social History Tobacco Use Types Packs/Day Years [...] Description 11/15/2024 12:00 PM CDT [facility] 1 [facility] [place] [address] Jeremias Dillon MD [address] [place] [address] documented as of this encounter Procedures Procedure Name Priority Date/Time Associated Diagnosis Comments SARS-COV-2 BY MOLECULAR Routine 06/10/2021 7:28 AM CDT Encounter for screening for other bacterial diseases documented in this encounter Results * SARS-COV-2 BY MOLECULAR (06/10/2021 7:28 AM CDT) SARSCOV2 NOT DETECTED (Referen ce Range for this test is Not Detected ) [facility] THERMOFISHER FAST DX 06/11/2021 7:12 AM CDT [facility] Comment:This test was perfor med by a RT-PCR method. Other COVID 19 Collection / Unknown 06/10/2021 7:28 AM CDT 06/10/2021 11:55 AM CDT Narrative [facility] - 06/11/2021 7:12 AM CDT Authorized Fact Sheets about this test for providers and patients are available at: https://www.fda.gov/medical-devices/quzznzeeg-tvdvywtmhy-wswrejw-devices/emergen -us e-authorizations us Tashi Fuller MD MICROBIOLOGY - GENERAL ORDERAB LES Final Result [facility] [address] [place] [address], documented in this encounter Visit Diagnoses Diagnosis Encounter for screening for other bacterial diseases documented in this encounter Additional Health Concerns Infection Onset Date Last Indicated Resolved Time COVID - 19 05/13/2021 08/19/2021 08/21/2021 7:20 PM MACHINE WELT BUTTER COVID - 19 07/08/2021 08/19/2021 08/21/2021 7:20 PM MACHINE WELT BUTTER COVID - 19 Confirmed 08/19/2021 08/26/2021 022 12:16 AM MACHINE WELT BUTTER COVID - 19 08/26/2021 08/26/2021 08/28/2021 6:12 AM MACHINE WELT BUTTER COVID - 19 09/23/2021 09/23/2021 10/13/2021 12:1 6 AM MACHINE WELT BUTTER COVID - 19 12/02/2021 12/02/2021 12/02/2021 11:1 1 PM CDT COVID - 19 Confirmed 12/02/2021 12/02/2021 022 12:16 AM CDT COVID - 19 12/16/2021 06/23/2022 07/03/2022 12:1 6 AM MACHINE WELT BUTTER COVID - 19 08/11/2022 10/27/2022 11/06/2022 12:1 6 AM CDT documented as of this encounter Care Teams Section Hand Relationship Specialty Start Date End Date Jeremias Dillon MD [address] [facility] [address] [place] [address] PCP - General Internal Medicine 07/21/16 07/07/21 Provider, Unknown UNKNOWN PCP - General 07/08/21 04/12/22 Tashi Fuller MD 4 [facility] [address] [address] PCP - General Family Medicine 04/13/22 07/04/23 Jeremias Dillon MD [address] [facility] [address] [place] [address] PCP - General Internal Medicine 07/05/23 Jeremias Dillon MD [address] [facility] [address] [place] [address] Internal Medicine 07/08/21 documented as of this encounter
--- OUTSIDE RECORDS SUMMARY | 2024-10-24 09:00 | XMS_ITS | Encounter Summary ---
Author Organization [facility] Address [address] [place] [address] Phone Care Team Providers Care Nozzle Worker Name Role Phone Provider, Unknown Primary Care Provider Unavaila ble Jeremias Dillon MD Unavailable [phone] Tashi Fuller MD Primary Care Provider [phone] Jeremias Dillon MD Primary Care Provider [phone] Encounter Details Date Type Department Care Team (Late st Contact Info) Description 07/29/2021 Lab Requisition [facility] Laboratory Services 1 [place] [phone] Tashi Fuller MD [address] [place] [address] [facility] 210 [place] [address] Encounter for screening for COVID-19 [...] Info) Description 11/15/2024 12:00 PM CDT [facility] 1 [place] [address] Jeremias Dillon MD [address] [place] [address] documented as of this encounter Procedures Procedure Name Priority Date/Time Associated Diagnosis Comments SARS-COV-2 BY MOLECULAR Routine 07/29/2021 7:42 AM CHOIR DIRECTOR Encounter for screening for COVID-19 documented in this encounter Results * SARS-COV-2 BY MOLECULAR (07/29/2021 7:42 AM CHOIR DIRECTOR) SARSCOV2 NOT DETECTED (Referen ce Range for this test is Not Detected ) [facility] THERMOFISHER FAST DX 07/31/2021 8:04 AM CHOIR DIRECTOR [facility] Comment:This test was perfor med by a RT-PCR method. Other No Phlebotomy Charged / Unknown 07/29/2021 7:42 AM CHOIR DIRECTOR 07/29/2021 11:57 AM CHOIR DIRECTOR Narrative [facility] - 07/31/2021 8:04 AM CHOIR DIRECTOR Authorized Fact Sheets about this test for providers and patients are available at: https://www.fda.gov/medical-devices/wfoirwmjq-knwdaaerbg-vxyehbi-devices/emergen -us e-authorizations us Tashi Fuller MD MICROBIOLOGY - GENERAL ORDERAB LES Final Result [facility] [address] [facility] [place] [address], documented in this encounter Visit Diagnoses Diagnosis Encounter for screening for COVID-19 documented in this encounter Additional Health Concerns Infection Onset Date Last Indicated Resolved Time COVID - 19 05/13/2021 08/19/2021 08/21/2021 7:20 PM CHOIR DIRECTOR COVID - 19 07/08/2021 08/19/2021 08/21/2021 7:20 PM CHOIR DIRECTOR COVID - 19 Confirmed 08/19/2021 08/26/2021 022 12:16 AM CHOIR DIRECTOR COVID - 19 08/26/2021 08/26/2021 08/28/2021 6:12 AM CHOIR DIRECTOR COVID - 19 09/23/2021 09/23/2021 10/13/2021 12:1 6 AM CHOIR DIRECTOR COVID - 19 12/02/2021 12/02/2021 12/02/2021 11:1 1 PM CDT COVID - 19 Confirmed 12/02/2021 12/02/2021 022 12:16 AM CDT COVID - 19 12/16/2021 06/23/2022 07/03/2022 12:1 6 AM CHOIR DIRECTOR COVID - 19 08/11/2022 10/27/2022 11/06/2022 12:1 6 AM CDT documented as of this encounter Care Teams Nozzle Worker Relationship Specialty Start Date End Date Provider, Unknown UNKNOWN PCP - General 07/08/21 04/12/22 Tashi Fuller MD 4 [facility] [address] [place] [address] PCP - General Family Medicine 04/13/22 07/04/23 Jeremias Dillon MD [address] [facility] 160 [place] [address] PCP - General Internal Medicine 07/05/23 Jeremias Dillon MD [address] [facility] [address] [place] [address] Internal Medicine 07/08/21 documented as of this encounter
--- OUTSIDE RECORDS SUMMARY | 2024-10-24 09:00 | XMS_ITS | Encounter Summary ---
Author Organization [facility] Address [address] [place] [address] Phone Care Team Providers Care Geriatric Nurse Practitioner Name Role Phone Provider, Unknown Primary Care Provider Unavaila ble Jeremias Dillon MD Unavailable [phone] Tashi Fuller MD Primary Care Provider [phone] Jeremias Dillon MD Primary Care Provider [phone] Encounter Details Date Type Department Care Team (Late st Contact Info) Description 09/23/2021 Lab Requisition [facility] Laboratory Services 1 [place] [phone] Tashi Fuller MD [address] [place] [address] [facility] 210 [place] [address] Encounter for screening for COVID-19 [...] Info) Description 11/15/2024 12:00 PM CDT [facility] 1 [place] [address] Jeremias Dillon MD [address] [place] [address] documented as of this encounter Procedures Procedure Name Priority Date/Time Associated Diagnosis Comments SARS-COV-2 BY MOLECULAR Routine 09/23/2021 6:25 AM LAST PUTTER AWAY Encounter for screening for COVID-19 documented in this encounter Results * SARS-COV-2 BY MOLECULAR (09/23/2021 6:25 AM LAST PUTTER AWAY) SARSCOV2 NOT DETECTED (Referen ce Range for this test is Not Detected ) [facility] THERMOFISHER FAST DX 09/24/2021 9:26 AM LAST PUTTER AWAY [facility] Comment:This test was perfor med by a RT-PCR method. Other Non-Phlebotomy Collection / Unknown 09/23/2021 6:25 AM LAST PUTTER AWAY 09/23/2021 10:56 AM LAST PUTTER AWAY Narrative [facility] - 09/24/2021 9:26 AM LAST PUTTER AWAY Authorized Fact Sheets about this test for providers and patients are available at: https://www.fda.gov/medical-devices/hzqapdcid-uwfmlbcgpw-pvliyql-devices/emergen -us e-authorizations us Tashi Fuller MD MICROBIOLOGY - GENERAL ORDERAB LES Final Result [facility] [address] [place] [address], documented in this encounter Visit Diagnoses Diagnosis Encounter for screening for COVID-19 documented in this encounter Additional Health Concerns Infection Onset Date Last Indicated Resolved Time COVID - 19 09/23/2021 09/23/2021 10/13/2021 12:1 6 AM LAST PUTTER AWAY COVID - 19 12/02/2021 12/02/2021 12/02/2021 11:1 1 PM CDT COVID - 19 Confirmed 12/02/2021 12/02/2021 022 12:16 AM CDT COVID - 19 12/16/2021 06/23/2022 07/03/2022 12:1 6 AM LAST PUTTER AWAY COVID - 19 08/11/2022 10/27/2022 11/06/2022 12:1 6 AM CDT documented as of this encounter Care Teams Geriatric Nurse Practitioner Relationship Specialty Start Date End Date Provider, Unknown UNKNOWN PCP - General 07/08/21 04/12/22 Tashi Fuller MD [address] [facility] [address] [place] [address] PCP - General Family Medicine 04/13/22 07/04/23 Jeremias Dillon MD [address] [facility] 160 [place] [address] PCP - General Internal Medicine 07/05/23 Jeremias Dillon MD [address] [facility] [address] [place] [address] Internal Medicine 07/08/21 documented as of this encounter
--- OUTSIDE RECORDS SUMMARY | 2024-10-24 09:00 | XMS_ITS | Encounter Summary ---
Author Organization [facility] Address [address] [place] [address] Phone Care Team Providers Care Casing Puller Name Role Phone Provider, Unknown Primary Care Provider Unavaila ble Jeremias Dillon MD Unavailable [phone] Tashi Fuller MD Primary Care Provider [phone] Jeremias Dillon MD Primary Care Provider Encounter Details Date Type Department Care Team (Late st Contact Info) Description 12/30/2021 Lab Requisition [facility] Laboratory Services 1 [place] [phone] Tashi Fuller MD [address] [place] [address] [facility] [address] [place] [address] Encounter for screening for COVID-19 [...] Info) Description 11/15/2024 12:00 PM CDT [facility] 1 [place] [address] Jeremias Dillon MD [address] [place] [address] documented as of this encounter Procedures Procedure Name Priority Date/Time Associated Diagnosis Comments SARS-COV-2 BY MOLECULAR Routine 12/30/2021 7:07 AM CDT Encounter for screening for COVID-19 documented in this encounter Results * SARS-COV-2 BY MOLECULAR (12/30/2021 7:07 AM CDT) SARSCOV2 NOT DETECTED (Referen ce Range for this test is Not Detected ) [facility] THERMOFISHER FAST DX 12/31/2021 6:32 PM CDT [facility] Comment:This test was perfor med by a RT-PCR method. Other Non-Phlebotomy Collection / Unknown 12/30/2021 7:07 AM CDT 12/30/2021 12:27 PM CDT Narrative [facility] - 12/31/2021 6:32 PM CDT Authorized Fact Sheets about this test for providers and patients are available at: https://www.fda.gov/medical-devices/wlyfbzepp-cdthhtjqzx-zycdxyb-devices/emergen -us e-authorizations us Tashi Fuller MD MICROBIOLOGY - GENERAL ORDERAB LES Final Result [facility] [address] [place] [address] [place] [address], documented in this encounter Visit Diagnoses Diagnosis Encounter for screening for COVID-19 documented in this encounter Additional Health Concerns Infection Onset Date Last Indicated Resolved Time COVID - 19 12/16/2021 06/23/2022 07/03/2022 12:1 6 AM HOME DEPOT REP COVID - 19 08/11/2022 10/27/2022 11/06/2022 12:1 6 AM CDT documented as of this encounter Care Teams Casing Puller Relationship Specialty Start Date End Date Provider, Unknown UNKNOWN PCP - General 07/08/21 04/12/22 Tashi Fuller MD [address] [facility] [place] [facility] [address] [place] [address] PCP - General Family Medicine 04/13/22 07/04/23 Jeremias Dillon MD [address] [facility] 160 [place] [address] PCP - General Internal Medicine 07/05/23 Jeremias Dillon MD [address] [facility] [address] [place] [address] Internal Medicine 07/08/21 documented as of this encounter
--- OUTSIDE RECORDS SUMMARY | 2024-10-24 09:00 | XMS_ITS | Encounter Summary ---
Author Organization [facility] Address [address] [place] [address] Phone Care Team Providers Care Education Liaison Name Role Phone Provider, Unknown Primary Care Provider Unavaila ble Jeremias Dillon MD Unavailable [phone] Tashi Fuller MD Primary Care Provider [phone] Jeremias Dillon MD Primary Care Provider [phone] Encounter Details Date Type Department Care Team (Late st Contact Info) Description 12/02/2021 Lab Requisition [facility] Laboratory Services 1 [place] [phone] Tashi Fuller MD [address] [place] [address] [facility] [[email or web address] 210 [place] [address] Encounter for screening for COVID-19 [...] Info) Description 11/15/2024 12:00 PM CDT [facility] 1 [place] [address] Jeremias Dillon MD [address] [place] [address] documented as of this encounter Procedures Procedure Name Priority Date/Time Associated Diagnosis Comments SARS-COV-2 BY MOLECULAR Routine 12/02/2021 7:45 AM CDT Encounter for screening for COVID-19 documented in this encounter Results * (ABNORMAL) SARS-COV-2 BY MOLECULAR (12/02/2021 7:45 AM CDT) SARSCOV2 DETECTED( A) (Referenc e Range for this test is Not Detected) [facility] THERMOFISHER FAST DX 12/02/2021 11:11 PM CDT [facility] Comment:This test was perfor med by a RT-PCR method. Other No Phlebotomy Charged / Unknown 12/02/2021 7:45 AM CDT 12/02/2021 1:32 PM CDT Narrative [facility] - 12/02/2021 11:11 PM CDT Authorized Fact Sheets about this test for providers and patients are available at: https://www.fda.gov/medical-devices/znntqiicq-sdwhzejpwu-lygudmx-devices/emergen -us e-authorizations us Tashi Fuller MD MICROBIOLOGY - GENERAL ORDERAB LES Final Result Performing Organization Address City/State/[facility] Co de Phone Number [facility] [address] [place] [address], documented in this encounter Visit Diagnoses Diagnosis Encounter for screening for COVID-19 documented in this encounter Additional Health Concerns Infection Onset Date Last Indicated Resolved Time COVID - 19 12/02/2021 12/02/2021 12/02/2021 11:1 1 PM CDT COVID - 19 Confirmed 12/02/2021 12/02/2021 022 12:16 AM CDT COVID - 19 12/16/2021 06/23/2022 07/03/2022 12:1 6 AM COMMUNICATIONS EQUIPMENT OPERATOR COVID - 08/11/2022 10/27/2022 11/06/2022 12:1 6 AM CDT documented as of this encounter Care Teams Education Liaison Relationship Specialty Start Date End Date Provider, Unknown UNKNOWN PCP - General 07/08/21 04/12/22 Tashi Fuller MD 4 [facility] [address] [place] [address] PCP - General Family Medicine 04/13/22 07/04/23 Jeremias Dillon MD [address] [facility] [[email or web address] [address] [place] [address] PCP - General Internal Medicine 07/05/23 Jeremias Dillon MD [address] [facility] [[email or web address]] [address] [place] [address] Internal Medicine 07/08/21 documented as of this encounter
--- OUTSIDE RECORDS SUMMARY | 2024-10-24 09:00 | XMS_ITS | Encounter Summary ---
Author Organization [facility] Address [address] [place] [address] Phone Care Team Providers Care Counter Caser Name Role Phone Jeremias Dillon MD Unavailable [phone] Tashi Fuller MD Primary Care Provider [phone] Jeremias Dillon MD Primary Care Provider [phone] Encounter Details Date Type Department Care Team (Late st Contact Info) Description 08/18/2022 Lab Requisition [facility] Laboratory Services 1 [place] [phone] Tashi Fuller MD [address] [place] [address] [address] Encounter for screening for COVID-19 [...] Info) Description 11/15/2024 12:00 PM CDT [facility] 1 [place] [address] Jeremias Dillon MD [address] [place] [address] documented as of this encounter Procedures Procedure Name Priority Date/Time Associated Diagnosis Comments SARS-COV-2 BY MOLECULAR Routine 08/18/2022 7:20 AM KNITTED GOODS SHAPER Encounter for screening for COVID-19 documented in this encounter Results * SARS-COV-2 BY MOLECULAR (08/18/2022 7:20 AM KNITTED GOODS SHAPER) SARSCOV2 NOT DETECTED (Referen ce Range for this test is Not Detected ) [facility] THERMOFISHER FAST DX 08/18/2022 9:20 PM KNITTED GOODS SHAPER [facility] Comment:This test was perfor med by a RT-PCR method. Other COVID 19 Collection / Unknown 08/18/2022 7:20 AM KNITTED GOODS SHAPER 08/18/2022 9:53 AM KNITTED GOODS SHAPER N[facility]ative [facility] - 08/18/2022 9:20 PM KNITTED GOODS SHAPER Authorized Fact Sheets about this test for providers and patients are available at: https://www.fda.gov/medical-devices/axjvmykuk-ralkwjvvvt-mgowqae-devices/emergen -us e-authorizations Result [facility] Tashi Fuller MD MICROBIOLOGY - GENERAL ORDERAB LES Final Result [facility] [address] [place] [address], documented in this encounter Visit Diagnoses Diagnosis Encounter for screening for COVID-19 documented in this encounter Additional Health Concerns Infection Onset Date Last Indicated Resolved Time COVID - 19 08/11/2022 10/27/2022 11/06/2022 12:1 6 AM CDT documented as of this encounter Care Teams Counter Caser Relationship Specialty Start Date End Date Tashi Fuller MD [address] [place] [address] [address] [place] [address] PCP - General Family Medicine 04/13/22 07/04/23 Jeremias Dillon MD [address] [place] [address] PCP - General Internal Medicine 07/05/23 Jeremias Dillon MD [address] [place] [address] Internal Medicine 07/08/21 documented as of this encounter
--- OUTSIDE RECORDS SUMMARY | 2024-10-24 09:00 | XMS_ITS ---
Care Plan - [facility] Created on: October 24, 2024 BRYAN WHEELER : 1950 Sex: Female Author Organization [facility] Address [address] [place] [address] Phone Care Team Providers Care Operators School Manager Name Role Phone DANIEL DAWSON, DYLON [place] Unavailable [phone]
--- OUTSIDE RECORDS SUMMARY | 2024-10-24 09:00 | XMS_ITS | Encounter Summary ---
Author Organization [facility] Address [address] [place] [address] Phone Care Team Providers Care Health Policy Manager Name Role Phone Jeremias Dillon MD Unavailable [phone] Tashi Fuller MD Primary Care Provider [phone] Jeremias Dillon MD Primary Care Provider [phone] Encounter Details Date Type Department Care Team (Late st Contact Info) Description 08/11/2022 Lab Requisition [facility] Laboratory Services 1 [place] [phone] Tashi Fuller MD [address] [place] [address] [address] Encounter for screening for COVID-19 [...] Info) Description 11/15/2024 12:00 PM CDT [facility] 1 [place] [address] Jeremias Dillon MD [address] [place] [address] documented as of this encounter Procedures Procedure Name Priority Date/Time Associated Diagnosis Comments SARS-COV-2 BY MOLECULAR Routine 08/11/2022 7:20 AM PRETZEL TWISTER Encounter for screening for COVID-19 documented in this encounter Results * SARS-COV-2 BY MOLECULAR (08/11/2022 7:20 AM PRETZEL TWISTER) SARSCOV2 NOT DETECTED (Referen ce Range for this test is Not Detected ) [facility] THERMOFISHER FAST DX 08/12/2022 12:33 AM PRETZEL TWISTER [facility] Comment:This test was perfor med by a RT-PCR method. Other Non-Phlebotomy Collection / Unknown 08/11/2022 7:20 AM PRETZEL TWISTER 08/11/2022 12:56 PM PRETZEL TWISTER Narrative [facility] - 08/12/2022 12:33 AM PRETZEL TWISTER Authorized Fact Sheets about this test for providers and patients are available at: https://www.fda.gov/medical-devices/ujmejshla-amgczieigz-dbccdri-devices/emergen -us e-authorizations Tashi Fuller MD MICROBIOLOGY - GENERAL ORDERAB LES Final Result [facility] [address] [facility] [place] [address], documented in this encounter Visit Diagnoses Diagnosis Encounter for screening for COVID-19 documented in this encounter Additional Health Concerns Infection Onset Date Last Indicated Resolved Time COVID - 19 08/11/2022 10/27/2022 11/06/2022 12:1 6 AM CDT documented as of this encounter Care Teams Health Policy Manager Relationship Specialty Start Date End Date Tashi Fuller MD [address] [place] [address] [address] [place] [address] PCP - General Family Medicine 04/13/22 07/04/23 Jeremias Dillon MD [address] [place] [address] PCP - General Internal Medicine 07/05/23 Jeremias Dillon MD [address] [place] [address] Internal Medicine 07/08/21 documented as of this encounter
--- OUTSIDE RECORDS SUMMARY | 2024-10-24 09:00 | XMS_ITS | Encounter Summary ---
Author Organization [facility] Address [address] [place] [address] Phone Care Team Providers Care Kiss Mixer Name Role Phone Jeremias Dillon MD Primary Care Provider [phone] Provider, Unknown Primary Care Provider Unavaila ble Jeremias Dillon MD Unavailable [phone] Tashi Fuller MD Primary Care Provider [phone] Jeremias Dillon MD Primary Care Provider [phone] Encounter Details Date Type Department Care Team (Late st Contact Info) Description 05/20/2021 Lab Requisition [facility] Laboratory Services 1 [place] [address] Tashi Fuller MD [address] [place] [address] [address] Encounter for screening for COVID-19 Social History [...] 12:00 PM CDT [facility] 1 [facility] [place] [address] Jeremias Dillon MD [address] [facility] 160 [place] [address] documented as of this encounter Procedures Procedure Name Priority Date/Time Associated Diagnosis Comments SARS-COV-2 BY MOLECULAR Routine 05/20/2021 7:49 AM CDT Encounter for screening for COVID-19 documented in this encounter Results * SARS-COV-2 BY MOLECULAR (05/20/2021 7:49 AM CDT) SARSCOV2 NOT DETECTED (Referen ce Range for this test is Not Detected ) [facility] THERMOFISHER FAST DX 05/21/2021 6:22 AM CDT [facility] Comment:This test was perfor med by a RT-PCR method. Other Non-Phlebotomy Collection / Unknown 05/20/2021 7:49 AM CDT 05/20/2021 10:53 AM CDT Narrative [facility] - 05/21/2021 6:22 AM CDT Authorized Fact Sheets about this test for providers and patients are available at: https://www.fda.gov/medical-devices/pnpjmkdjr-euldwczlhy-hgxnhrd-devices/emergen -us e-authorizations us Tashi Fuller MD MICROBIOLOGY - GENERAL ORDERAB LES Final Result [facility] [address] [place] [address], documented in this encounter Visit Diagnoses Diagnosis Encounter for screening for COVID-19 documented in this encounter Additional Health Concerns Infection Onset Date Last Indicated Resolved Time COVID - 19 05/13/2021 08/19/2021 08/21/2021 7:20 PM HOGSHEAD WRECKER COVID - 19 07/08/2021 08/19/2021 08/21/2021 7:20 PM HOGSHEAD WRECKER COVID - 19 Confirmed 08/19/2021 08/26/2021 022 12:16 AM HOGSHEAD WRECKER COVID - 19 08/26/2021 08/26/2021 08/28/2021 6:12 AM HOGSHEAD WRECKER COVID - 19 09/23/2021 09/23/2021 10/13/2021 12:1 6 AM HOGSHEAD WRECKER COVID - 19 12/02/2021 12/02/2021 12/02/2021 11:1 1 PM CDT COVID - 19 Confirmed 12/02/2021 12/02/2021 022 12:16 AM CDT COVID - 19 12/16/2021 06/23/2022 07/03/2022 12:1 6 AM HOGSHEAD WRECKER COVID - 19 08/11/2022 10/27/2022 11/06/2022 12:1 6 AM CDT documented as of this encounter Care Teams Kiss Mixer Relationship Specialty Start Date End Date Jeremias Dillon MD [address] [facility] 160 [place] [address] PCP - General Internal Medicine 07/21/16 07/07/21 Provider, Unknown UNKNOWN PCP - General 07/08/21 04/12/22 Tashi Fuller MD [address] [address] PCP - General Family Medicine 04/13/22 07/04/23 Jeremias Dillon MD [address] [facility] 160 [place] [address] PCP - General Internal Medicine 07/05/23 Jeremias Dillon MD [address] [facility] [address] [place] [address] Internal Medicine 07/08/21 documented as of this encounter
--- OUTSIDE RECORDS SUMMARY | 2024-10-24 09:00 | XMS_ITS | Encounter Summary ---
Author Organization [facility] Address [address] [place] [address] Phone Care Team Providers Care Hoop Driving Machine Operator Name Role Phone Jeremias Dillon MD Unavailable [phone] Tashi Fuller MD Primary Care Provider Jeremias Dillon MD Primary Care Provider [phone] Encounter Details Date Type Department Care Team (Late st Contact Info) Description 06/09/2022 Lab Requisition [facility] Laboratory Services 1 [place] [phone] Tashi Fuller MD [address] [place] [address] [address] Encounter for screening for COVID-19 [...] Info) Description 11/15/2024 12:00 PM CDT [facility] 1 [place] [address] Jeremias Dillon MD [address] [place] [address] documented as of this encounter Procedures Procedure Name Priority Date/Time Associated Diagnosis Comments SARS-COV-2 BY MOLECULAR Routine 06/09/2022 7:40 AM CDT Encounter for screening for COVID-19 documented in this encounter Results * SARS-COV-2 BY MOLECULAR (06/09/2022 7:40 AM CDT) SARSCOV2 NOT DETECTED (Referen ce Range for this test is Not Detected ) [facility] THERMOFISHER FAST DX 06/10/2022 12:21 AM CDT [facility] Comment:This test was perfor med by a RT-PCR method. Other Non-Phlebotomy Collection / Unknown 06/09/2022 7:40 AM CDT 06/09/2022 12:16 PM CDT Narrative [facility] - 06/10/2022 12:21 AM CDT Authorized Fact Sheets about this test for providers and patients are available at: https://www.fda.gov/medical-devices/wpmecbyra-gaqegjaxix-qvzdrcw-devices/emergen -us e-authorizations us Tashi Fuller MD MICROBIOLOGY - GENERAL ORDERAB LES Final Result [facility] [address] [place] [address], documented in this encounter Visit Diagnoses Diagnosis Encounter for screening for COVID-19 documented in this encounter Additional Health Concerns Infection Onset Date Last Indicated Resolved Time COVID - 19 12/16/2021 06/23/2022 07/03/2022 12:1 6 AM MANAGER PERFORMANCE COVID - 19 08/11/2022 10/27/2022 11/06/2022 12:1 6 AM CDT documented as of this encounter Care Teams Hoop Driving Machine Operator Relationship Specialty Start Date End Date Tashi Fuller MD [address] [place] [address] [address] [place] [address] PCP - General Family Medicine 04/13/22 07/04/23 Jeremias Dillon MD [address] [facility] 160 [place] [address] PCP - General Internal Medicine 07/05/23 Jeremias Dillon MD [address] [facility] [address] [place] [address] Internal Medicine 07/08/21 documented as of this encounter
--- OUTSIDE RECORDS SUMMARY | 2024-10-24 09:00 | XMS_ITS | Encounter Summary ---
Author Organization [facility] Address [address] [place] [address] Phone Care Team Providers Care Body Stylist Name Role Phone Provider, Unknown Primary Care Provider Unavaila ble Jeremias Dillon MD Unavailable [phone] Tashi Fuller MD Primary Care Provider [phone] Jeremias Dillon MD Primary Care Provider [phone] Encounter Details Date Type Department Care Team (Late st Contact Info) Description 08/05/[address] [facility] Laboratory Services 1 [place] [id number] Tashi Fuller MD [address] [place] [address] [facility] [address] [place] [address] Encounter for screening for COVID-19 [...] 11/15/2024 12:00 PM CDT [facility] 1 [place] [address] Jeremias Dillon MD [address] [place] [address] documented as of this encounter Procedures Procedure Name Priority Date/Time Associated Diagnosis Comments SARS-COV-2 BY MOLECULAR Routine 08/05/2021 7:22 AM RIB PULLER Encounter for screening for COVID-19 documented in this encounter Results * SARS-COV-2 BY MOLECULAR (08/05/2021 7:22 AM RIB PULLER) SARSCOV2 NOT DETECTED (Referen ce Range for this test is Not Detected ) [facility] THERMOFISHER FAST DX 08/08/2021 8:57 AM RIB PULLER [facility] Comment:This test was perfor med by a RT-PCR method. Other No Phlebotomy Charged / Unknown 08/05/2021 7:22 AM RIB PULLER 08/05/2021 10:43 AM RIB PULLER Narrative [facility] - 08/08/2021 8:57 AM RIB PULLER Authorized Fact Sheets about this test for providers and patients are available at: https://www.fda.gov/medical-devices/ixomlppdv-igvbpkwkop-eiiaalx-devices/emergen -us e-authorizations us Tashi Fuller MD MICROBIOLOGY - GENERAL ORDERAB LES Final Result [facility] [address] [facility] [place] [address], documented in this encounter Visit Diagnoses Diagnosis Encounter for screening for COVID-19 documented in this encounter Additional Health Concerns Infection Onset Date Last Indicated Resolved Time COVID - 19 05/13/2021 08/19/2021 08/21/2021 7:20 PM RIB PULLER COVID - 19 07/08/2021 08/19/2021 08/21/2021 7:20 PM RIB PULLER COVID - 19 Confirmed 08/19/2021 08/26/2021 022 12:16 AM RIB PULLER COVID - 19 08/26/2021 08/26/2021 08/28/2021 6:12 AM RIB PULLER COVID - 19 09/23/2021 09/23/2021 10/13/2021 12:1 6 AM RIB PULLER COVID - 19 12/02/2021 12/02/2021 12/02/2021 11:1 1 PM CDT COVID - 19 Confirmed 12/02/2021 12/02/2021 022 12:16 AM CDT COVID - 19 12/16/2021 06/23/2022 07/03/2022 12:1 6 AM RIB PULLER COVID - 19 08/11/2022 10/27/2022 11/06/2022 12:1 6 AM CDT documented as of this encounter Care Teams Body Stylist Relationship Specialty Start Date End Date Provider, Unknown UNKNOWN PCP - General 07/08/21 04/12/22 Tashi Fuller MD 4 [facility] 210 [place] [address] PCP - General Family Medicine 04/13/22 07/04/23 Jeremias Dillon MD [address] [facility] 160 [place] [address] PCP - General Internal Medicine 07/05/23 Jeremias Dillon MD [address] [facility] 160 [place] [address] Internal Medicine 07/08/21 documented as of this encounter
--- OUTSIDE RECORDS SUMMARY | 2024-10-24 09:00 | XMS_ITS | Encounter Summary ---
Author Organization [facility] Address [address] [place] [address] Phone Care Team Providers Care Inpatient Services Director Name Role Phone Jeremias Dillon MD Unavailable [phone] Tashi Fuller MD Primary Care Provider [phone] Jeremias Dillon MD Primary Care Provider [phone] Encounter Details Date Type Department Care Team (Late st Contact Info) Description 10/13/2022 Lab Requisition [facility] Laboratory Services 1 [place] [phone] Tashi Fuller MD [address] [place] [address] [address] Encounter for screening for COVID-19 [...] Info) Description 11/15/2024 12:00 PM CDT [facility] 1 [place] [address] Jeremias Dillon MD [address] [place] [address] documented as of this encounter Procedures Procedure Name Priority Date/Time Associated Diagnosis Comments SARS-COV-2 BY MOLECULAR Routine 10/13/2022 7:44 AM SURGERY TECHNICIAN Encounter for screening for COVID-19 documented in this encounter Results * SARS-COV-2 BY MOLECULAR (10/13/2022 7:44 AM SURGERY TECHNICIAN) SARSCOV2 NOT DETECTED (Referen ce Range for this test is Not Detected ) [facility] THERMOFISHER FAST DX 10/14/2022 8:02 AM SURGERY TECHNICIAN [facility] Comment:This test was perfor med by a RT-PCR method. Other Non-Phlebotomy Collection / Unknown 10/13/2022 7:44 AM SURGERY TECHNICIAN 10/13/2022 10:41 AM SURGERY TECHNICIAN Narrative [facility] - 10/14/2022 8:02 AM SURGERY TECHNICIAN Authorized Fact Sheets about this test for providers and patients are available at: https://www.fda.gov/medical-devices/ooimiqfwp-ujuleaynrj-dcmvmkb-devices/emergen -us e-authorizations Tashi Fuller MD MICROBIOLOGY - GENERAL ORDERAB LES Final Result [facility] [address] [place] [address], documented in this encounter Visit Diagnoses Diagnosis Encounter for screening for COVID-19 documented in this encounter Additional Health Concerns Infection Onset Date Last Indicated Resolved Time COVID - 19 08/11/2022 10/27/2022 11/06/2022 12:1 6 AM CDT documented as of this encounter Care Teams Inpatient Services Director Relationship Specialty Start Date End Date Tashi Fuller MD [address] [place] [address] [address] [place] [address] PCP - General Family Medicine 04/13/22 07/04/23 Jeremias Dillon MD [address] [place] [address] PCP - General Internal Medicine 07/05/23 Jeremias Dillon MD [address] [place] [address] Internal Medicine 07/08/21 documented as of this encounter
--- OUTSIDE RECORDS SUMMARY | 2024-10-24 09:00 | XMS_ITS | Encounter Summary ---
Author Organization [facility] Address [address] [place] [address] Phone Care Team Providers Care Reliability Technician Name Role Phone Jeremias Dillon MD Primary Care Provider [phone] Provider, Unknown Primary Care Provider Unavaila ble Jeremias Dillon MD Unavailable [phone] Tashi Fuller MD Primary Care Provider [phone] Jeremias Dillon MD Primary Care Provider [phone] Encounter Details Date Type Department Care Team (Late st Contact Info) Description 05/13/2021 Lab Requisition [facility] Laboratory Services 1 [place] [address] Tashi Fuller MD [address] [place] [address] [address] Social History Tobacco Use Types Packs/Day Years [...] Info) Description 11/15/2024 12:00 PM CDT [facility] 1 [place] [address] Jeremias Dillon MD [address] [place] [address] documented as of this encounter Procedures Procedure Name Priority Date/Time Associated Diagnosis Comments SARS-COV-2 BY MOLECULAR Routine 05/13/2021 7:46 AM CDT documented in this encounter Results * SARS-COV-2 BY MOLECULAR (05/13/2021 7:46 AM CDT) SARSCOV2 NOT DETECTED (Referen ce Range for this test is Not Detected ) [facility] THERMOFISHER FAST DX 05/14/2021 6:36 AM CDT [facility] Comment:This test was perfor med by a RT-PCR method. Other Non-Phlebotomy Collection / Unknown 05/13/2021 7:46 AM CDT 05/13/2021 10:[address] [facility] - 05/14/2021 6:36 AM CDT Authorized Fact Sheets about this test for providers and patients are available at: https://www.fda.gov/medical-devices/clzdkslnf-iipnmekfia-vvpwjqx-devices/emergen -us e-authorizations us Tashi Fuller MD MICROBIOLOGY - GENERAL ORDERAB LES Final Result Performing Organization Address City/State/[facility] Co de Phone Number [facility] [address] [place] [address], documented in this encounter Visit Diagnoses Not on filedocumented in this encounter Additional Health Concerns Infection Onset Date Last Indicated Resolved Time COVID - 19 05/13/2021 08/19/2021 08/21/2021 7:20 PM WILDLAND FIRE OPERATIONS SPECIALIST COVID - 19 07/08/2021 08/19/2021 08/21/2021 7:20 PM WILDLAND FIRE OPERATIONS SPECIALIST COVID - 19 Confirmed 08/19/2021 08/26/2021 022 12:16 AM WILDLAND FIRE OPERATIONS SPECIALIST COVID - 19 08/26/2021 08/26/202108/28/2021 6:12 AM WILDLAND FIRE OPERATIONS SPECIALIST COVID - 19 09/23/2021 09/23/2021 10/13/2021 12:1 6 AM WILDLAND FIRE OPERATIONS SPECIALIST COVID - 19 12/02/2021 12/02/2021 12/02/2021 11:1 1 PM CDT COVID - 19 Confirmed 12/02/2021 12/02/2021 022 12:16 AM CDT COVID - 19 12/16/2021 06/23/2022 07/03/2022 12:1 6 AM WILDLAND FIRE OPERATIONS SPECIALIST COVID - 19 08/11/2022 10/27/2022 11/06/2022 12:1 6 AM CDT documented as of this encounter Care Teams Reliability Technician Relationship Specialty Start Date End Date Jeremias Dillon MD [address] [place] [address] PCP - General Internal Medicine 07/21/16 07/07/21 Provider, Unknown UNKNOWN PCP - General 07/08/21 04/12/22 Tashi Fuller MD 4 [facility] [address] [place] [address] PCP - General Family Medicine 04/13/22 07/04/23 Jeremias Dillon MD [address] [place] [address] PCP - General Internal Medicine 07/05/23 Jeremias Dillon MD [address] [place] [address] Internal Medicine 07/08/21 documented as of this encounter
--- OUTSIDE RECORDS SUMMARY | 2024-10-24 09:00 | XMS_ITS | Encounter Summary ---
Author Organization [facility] Address [address] [place] [address] Phone Care Team Providers Care Chief Minister Name Role Phone Provider, Unknown Primary Care Provider Unavaila ble Jeremias Dillon MD Unavailable [phone] Tashi Fuller MD Primary Care Provider [phone] Jeremias Dillon MD Primary Care Provider [phone] Encounter Details Date Type Department Care Team (Late st Contact Info) Description 01/20/2022 Lab Requisition [facility] Laboratory Services 1 [place] [phone] Tashi Fuller MD [address] [place] [address] [facility] [address] [place] [address] Encounter for screening for COVID-19 [...] [facility] Mamm[facility] 1 [place] [phone] Jeremias Dillon MD [address] [place] [address] documented as of this encounter Procedures Procedure Name Priority Date/Time Associated Diagnosis Comments SARS-COV-2 BY MOLECULAR Routine 01/20/2022 7:36 AM CDT Encounter for screening for COVID-19 documented in this encounter Results * SARS-COV-2 BY MOLECULAR (01/20/2022 7:36 AM CDT) SARSCOV2 NOT DETECTED (Referen ce Range for this test is Not Detected ) [facility] THERMOFISHER FAST DX 01/21/2022 6:49 AM CDT [facility] Comment:This test was perfor med by a RT-PCR method. Other Non-Phlebotomy Collection / Unknown 01/20/2022 7:36 AM CDT 01/20/2022 11:38 AM CDT Narrative [facility] - 01/21/2022 6:49 AM CDT Authorized Fact Sheets about this test for providers and patients are available at: https://www.fda.gov/medical-devices/zjcjiimzq-mnwidyzurj-qyzpcny-devices/emergen -us e-authorizations us Tashi Fuller MD MICROBIOLOGY - GENERAL ORDERAB LES Final Result [facility] [address] [place] [address], documented in this encounter Visit Diagnoses Diagnosis Encounter for screening for COVID-19 documented in this encounter Additional Health Concerns Infection Onset Date Last Indicated Resolved Time COVID - 19 12/16/2021 06/23/2022 07/03/2022 12:1 6 AM NURSING CARE ATTENDANT COVID - 19 08/11/2022 10/27/2022 11/06/2022 12:1 6 AM CDT documented as of this encounter Care Teams Chief Minister Relationship Specialty Start Date End Date Provider, Unknown UNKNOWN PCP - General 07/08/21 04/12/22 Tashi Fuller MD [address] [facility] [address] [place] [address] PCP - General Family Medicine 04/13/22 07/04/23 Jeremias Dillon MD [address] [facility] [address] [place] [address] PCP - General Internal Medicine 07/05/23 Jeremias Dillon MD [address] [facility] [address] [place] [address] Internal Medicine 07/08/21 documented as of this encounter
--- OUTSIDE RECORDS SUMMARY | 2024-10-24 09:00 | XMS_ITS | Encounter Summary ---
Author Organization [facility] Address [address] [place] [address] Phone Care Team Providers Care Cash On Delivery Clerk Name Role Phone Jeremias Dillon MD Unavailable [phone] Tashi Fuller MD Primary Care Provider [phone] Jeremias Dillon MD Primary Care Provider [phone] Encounter Details Date Type Department Care Team (Late st Contact Info) Description 04/14/2022 Lab Requisition [facility] Laboratory Services [address] [place] [phone] Tashi Fuller MD [address] [place] [address] [address] Encounter for screening for COVID-19 [...] Info) Description 11/15/2024 12:00 PM CDT [facility] [address] [place] [address] Jeremias Dillon MD [address] [place] [address] documented as of this encounter Procedures Procedure Name Priority Date/Time Associated Diagnosis Comments SARS-COV-2 BY MOLECULAR Routine 04/14/2022 7:22 AM CDT Encounter for screening for COVID-19 documented in this encounter Results * SARS-COV-2 BY MOLECULAR (04/14/2022 7:22 AM CDT) SARSCOV2 NOT DETECTED (Referen ce Range for this test is Not Detected ) [facility] THERMOFISHER FAST DX 04/15/2022 6:15 AM CDT [facility] Comment:This test was perfor med by a RT-PCR method. Other Non-Phlebotomy Collection / Unknown 04/14/2022 7:22 AM CDT 04/14/2022 12:48 PM CDT Narrative [facility] - 04/15/2022 6:15 AM CDT Authorized Fact Sheets about this test for providers and patients are available at: https://www.fda.gov/medical-devices/nxzmzlurk-zsvwmsecjx-ypjsxdb-devices/emergen -us e-authorizations us Tashi Fuller MD MICROBIOLOGY - GENERAL ORDERAB LES Final Result [facility] [address] [place] [address], documented in this encounter Visit Diagnoses Diagnosis Encounter for screening for COVID-19 documented in this encounter Additional Health Concerns Infection Onset Date Last Indicated Resolved Time COVID - 19 12/16/2021 06/23/2022 07/03/2022 12:1 6 AM SLURRY CONTROL OPERATOR HELPER COVID - 19 08/11/2022 10/27/2022 11/06/2022 12:1 6 AM CDT documented as of this encounter Care Teams Cash On Delivery Clerk Relationship Specialty Start Date End Date Tashi Fuller MD [address] [place] [address] [address] [place] [address] PCP - General Family Medicine 04/13/22 07/04/23 Jeremias Dillon MD [address] [facility] [address] [place] [address] PCP - General Internal Medicine 07/05/23 Jeremias Dillon MD [address] [facility] [address] [place] [address] Internal Medicine 07/08/21 documented as of this encounter
--- OUTSIDE RECORDS SUMMARY | 2024-10-24 09:00 | XMS_ITS | Clinical Summary ---
Author Organization [facility] Address [address] [place] [address] Phone Care Team Providers Care Roll Up Machine Operator Name Role Phone DANIEL DAWSON, DYLON Meadows Unavailable [phone] Reason for Visit and Chief Complaint gynecologic annual exam - The Chief Complaint is: Annual Problems Includes: Problems addressed during this encounter and other active Problems Current Visit Onset Date Resolved Date Provider Karen calhoun Status Osteopenia 07/19/2016 COREY NOLEN RN [facility] Active Last Documented On 6 10:34AM ; [facility] Dementia 07/19/2016 COREY NOLEN RN [facility] Active Last Documented On 6 10:34AM ; [facility] Intellectual Disabilities 07/19/2016 COREY VUONG RN [facility] Active Last Documented On 6 10:34AM ; [facility] Esophagitis Chronic Reflux 07/19/2016 COREY YANG RN [facility] Active Last Documented On 6 10:36AM ; [facility] Plan of Treatment - Clinical summary provided to patient - Last Documented On 07/19/2016 10:56AM ; [facility] PT TO CALL WITH ANY CHANGE IN STATUS ALL QUESTIONS ANSWERED WITH UNDERSTANDING VERBALIZED BY PT. - Last Documented On 07/19/2016 10:56AM ; [facility] Pending Tests Order Diagnosis Results Due Ordering Loreta yates Radiology @ [facility] (to be scheduled) Ot disrd of bone density and structure, unspecified site 08/19/16 COREY NOLEN RN [facility] Last Documented On 7 3:52PM ; [facility] Instructions to patient Instructions For Patient: Mo nthly Self Breast Exam Last Documented On 6 10:38AM ; [facility] Recommend diet and exercise at least 30 min three times per week Last Documented On 6 10:38AM ; [facility] Assessments Includes: Assessments from this encounter Findings - NORMAL FEMALE EXAM - Last Documented On 07/19/2016 10:56AM ; [facility] - Cutaneous candidiasis - Last Documented On 07/19/2016 10:56AM ; [facility] Instructions Includes: Instructions from this encounter Instructions to patient Instructions For Patient: Mo nthly Self Breast Exam Last Documented On 6 10:38AM ; [facility] Recommend diet and exercise at least 30 min three times per week Last Documented On 6 10:38AM ; [facility] Medical Equipment - Implanted Devices Includes: Current Devices No Medical Equipment Recorded Medications Includes: Medications discussed during this encounter and other current Medications New / Renewed during this visit COREY NOLEN RN [facility] on 07/19/2016 Nystatin [id number] UNIT/GM Cream Provider: COREY NOLEN RN [facility] 7 day supply: 1 tube, 1 refills Diagnosis: Candidiasis of skin and nail as directed APPLY 3 times da tung to affected area Pharmacy: [address], [address] - Last Documented On 6 10:55AM By COREY REEVES- ; [facility] Current Medications (continue as prescribed) Diflucan 200MG Oral Tablet 07/25/2018 Provider: Diagnosis: One tablet by mouth daily every month on the Last Documented On 8 9:03AM By CHRIS ORTA ; [facility] Claritin 10MG Oral Tablet 07/25/2018 Provider: Diagnosis: Last Documented On 8 9:04AM By CHRIS ORTA ; [facility] Namenda XR 28MG Oral Capsule Extended Release 24 Hour 07/25/2018 Provider: Diagnosis: Last Documented On 8 9:04AM By CHRIS ORTA ; [facility] PriLOSEC OTC 20MG Oral Tablet Delayed Release 07/25/20 Provider: Diagnosis: Last Documented On 8 9:04AM By CHRIS ORTA ; [facility] [place] Nasal [place] 0.65% Solution 07/25/2018 Provider : Diagnosis: Last Documented On 8 9:04AM By CHRIS ORTA ; [facility] Oyst-Mookie-D 500 [id number] Oral Tablet 07/25/2018 Provider: Diagnosis: Last Documented On 8 9:05AM By CHRIS ORTA ; [facility] Aricept 10MG Oral Tablet 07/25/2018 Provider: Diagnosis: Last Documented On 8 9:05AM By CHRIS ORTA ; [facility] Tylenol 325MG Oral Capsule 07/25/2018 Provider: Diagnosis: Last Documented On 8 9:05AM By CHRIS ORTA ; [facility] Milk of Magnesia 7.75% Oral Suspension 07/25/2018 Pr ovider: Diagnosis: Last Documented On 8 9:05AM By CHRIS ORTA ; [facility] Robafen DM Clear 100-10MG/5ML Oral Syrup 07/25/2018 Provider: Diagnosis: Last Documented On 8 9:06AM By CHRIS ORTA ; [facility] Clotrimazole 1% External Cream 07/25/2018 Provider: Diagnosis: Last Documented On 8 9:06AM By CHRIS ORTA ; [facility] Triamcinolone Acetonide 0.1% External Cream 07/25/2018 Provider: Diagnosis: Last Documented On 8 9:07AM By CHRIS ORTA ; [facility] GNP Triple Antibiotic External Ointment 07/25/2018 P rovider: Diagnosis: Last Documented On 8 9:07AM By CHRIS ORTA ; [facility] Medications Administered Includes: Administered Medications from this encounter No Administered Medications Recorded Vital Signs Includes: Vital Signs from this encounter Vital Name 07/19/2016 10:44A Blood Pressure Sitting (mmHg) 116/78 Height (in) 59 Weight (lb) 168 Body Mass Index (kg/m2) 33.9 Body Surface Area (m2) 1.7 Last Documented: On 07/19/2016 10:45A M ; [facility] Results Includes: Results discussed during this encounter No Results Recorded For Specified Dates History of Present Illness Includes: History of Present Illness from this encounter HPI BRYAN WHEELER is a 65 year old female. - PRIMARY CARE PROVIDER : Wilma. Social History Description Last Updated Denied sexual activity 07/19/2016 Last Documented On 6 10:56AM ; [facility] Education history 07/19/2016 Last Documented On 6 10:56AM ; [facility] Personal history 07/19/2016 Last Documented On 6 10:56AM ; [facility] Single 07/19/2016 Last Documented On 6 10:56AM ; [facility] Not sexually active 07/19/2016 Last Documented On 6 10:56AM ; [facility] Smoking status : Former smoker Last Documented On 6 10:56AM ; [facility] Procedures and Surgical History Includes: Procedures from this encounter Procedures Code Diagnosis Performing Provider Service L ocation Service Date explanation of plan Last Documented On 6 10:38AM ; [facility] medical regimen review Last Documented On 6 10:38AM ; [facility] a wet and dry mount of a primary source with int erpretation yeast 10167 Last Documented On 6 10:53AM ; [facility] Surgical History Last Updated History of total abdominal h ysterectomy BSO 1993 unknown benign pathology 07/19/2016 Last Documented On 6 10:56AM ; [facility] History of hysterectomy 1993 07/19/2016 Last Documented On 6 10:56AM ; [facility] History of cholecystectomy 200307/19/20 Last Documented On 6 10:56AM ; [facility] Medical History Includes: Medical History addressed during this encounter Description Last Updated History of chronic reflux esophagitis Last Documented On 6 10:56AM ; [facility] A colonoscopy was performed 12/02/1512/2015 Last Documented On 6 10:56AM ; [facility] Last mammogram date: 12/15/2015 6 Last Documented On 6 10:56AM ; [facility] LMP: 1993 07/19/2016 Last Documented On 6 10:56AM ; [facility] Result: normal 07/19/2016 Last Documented On 6 10:56AM ; [facility] Family History Includes: Family History addressed during this encounter Description Last Updated Family history unchanged unknown 016 Last Documented On 6 10:56AM ; [facility] Review of Systems Includes: Review of Systems from this encounter Systemic: General overall feeling. Feeling fine. No symptoms and no unusual bleeding. No pain. Head: No headache. Eyes: No vision problems. Breasts: No breast symptoms and patient performs self breast exams. Cardiovascular: No chest pain or discomfort and no intermittent leg claudication. Pulmonary: No pulmonary symptoms, no dyspnea, no rapid breathing, no cough, and no wheezing. Gastrointestinal: No nausea, no vomiting, and no bowel/bladder changes. Genitourinary: No change in urinary frequency. No dysuria. No vaginal discharge. Mental Status Includes: Mental Status from this encounter No Mental Status Recorded Functional Status Includes: Functional Status from this encounter No Functional Status Recorded Physical Exam Includes: Physical Exam from this encounter Allergies Includes: Active Allergies No Known Allergies Encounters Encounter Provider Location Date Check-In Time Check-Out Time Diagnosis NEW FIELD CROP FARMER EXAM COREY NOLEN RN [facility] PATENT LEATHER SORTER 07/19/20 16 9:10AM 10:56AM Normal Female Exam,Candidia sis of the Skin Insurance Includes: Active Insurance Policies Plan Name Member ID Group # Subscriber Relationship Effect osei Dates 1 - [place] [id number] BRYAN Han 2 - ID[employer] MEDICARE SECONDARY NON [facility] [id number] BRYAN Hna Clinical Notes Includes: Clinical Notes from this encounter No Clinical Notes Recorded
--- OUTSIDE RECORDS SUMMARY | 2024-10-24 09:00 | XMS_ITS | Encounter Summary ---
Author Organization [facility] Address [address] [place] [address] Phone Care Team Providers Care Secretary Administrative Assistant Name Role Phone Provider, Unknown Primary Care Provider Unavaila ble Jeremias Dillon MD Unavailable [phone] Tashi Fuller MD Primary Care Provider Jeremias Dillon MD Primary Care Provider Encounter Details Date Type Department Care Team (Late st Contact Info) Description 07/08/2021 Lab Requisition [facility] Laboratory Services [address] [place] [phone] Tashi Fuller MD 4 [facility] [address] [place] [address] Social History Tobacco Use Types Packs/Day Years Used Date Smoking Tobacco: Never Assessed AUDIT-C Answer Date Recorded Frequency of Alcohol [...] Encounters Date Type Department Care Team (Late Contact Info) Description 11/15/2024 12:00 PM CDT [facility] [address] [place] [address] Jeremias Dillon MD [address] [facility] [address] [place] [address] documented as of this encounter Procedures Procedure Name Priority Date/Time Associated Diagnosis Comments SARS-COV-2 BY MOLECULAR Routine 07/08/2021 7:29 AM DIRECTOR OF PERIOPERATIVE SERVICES documented in this encounter Results * SARS-COV-2 BY MOLECULAR (07/08/2021 7:29 AM DIRECTOR OF PERIOPERATIVE SERVICES) SARSCOV2 NOT DETECTED (Referen ce Range for this test is Not Detected ) [facility] THERMOFISHER FAST DX 07/09/2021 12:07 PM DIRECTOR OF PERIOPERATIVE SERVICES [facility] Comment:This test was perfor med by a RT-PCR method. Other No Phlebotomy Charged / Unknown 07/08/2021 7:29 AM DIRECTOR OF PERIOPERATIVE SERVICES 07/08/2021 10:41 AM DIRECTOR OF PERIOPERATIVE SERVICES Narrative [facility] - 07/09/2021 12:07 PM DIRECTOR OF PERIOPERATIVE SERVICES Authorized Fact Sheets about this test for providers and patients are available at: https://www.fda.gov/medical-devices/jdxagcpyf-cygrecufjn-ewcjylw-devices/emergen -us e-authorizations us Tashi Fuller MD MICROBIOLOGY - GENERAL ORDERAB LES Final Result [facility] [address] [facility] [place] [address], documented in this encounter Visit Diagnoses Not on filedocumented in this encounter Additional Health Concerns Infection Onset Date Last Indicated Resolved Time COVID - 19 05/13/2021 08/19/2021 08/21/2021 7:20 PM DIRECTOR OF PERIOPERATIVE SERVICES COVID - 19 07/08/2021 08/19/2021 08/21/2021 7:20 PM DIRECTOR OF PERIOPERATIVE SERVICES COVID - 19 Confirmed 08/19/2021 08/26/2021 022 12:16 AM DIRECTOR OF PERIOPERATIVE SERVICES COVID - 19 08/26/2021 08/26/2021 08/28/2021 6:12 AM DIRECTOR OF PERIOPERATIVE SERVICES COVID - 19 09/23/2021 09/23/2021 10/13/2021 12:1 6 AM DIRECTOR OF PERIOPERATIVE SERVICES COVID - 19 12/02/2021 12/02/2021 12/02/2021 11:1 1 PM CDT COVID - 19 Confirmed 12/02/2021 12/02/2021 022 12:16 AM CDT COVID - 19 12/16/2021 06/23/2022 07/03/2022 12:1 6 AM DIRECTOR OF PERIOPERATIVE SERVICES COVID - 19 08/11/2022 10/27/2022 11/06/2022 12:1 6 AM CDT documented as of this encounter Care Teams Secretary Administrative Assistant Relationship Specialty Start Date End Date Provider, Unknown UNKNOWN PCP - General 07/08/21 04/12/22 Tashi Fuller MD [address] [facility] [address] [place] [address] PCP - General Family Medicine 04/13/22 07/04/23 Jeremias Dillon MD [address] [id number] PCP - General Internal Medicine 07/05/23 Jeremias Dillon MD [address] [address] Internal Medicine 07/08/21 documented as of this encounter
--- OUTSIDE RECORDS SUMMARY | 2024-10-24 09:00 | XMS_ITS | Encounter Summary ---
Author Organization [facility] Address [address] [place] [address] Phone Care Team Providers Care Janitor Custodian Name Role Phone Jeremias Dillon MD Unavailable [phone] Tashi Fuller MD Primary Care Provider [phone] Jeremias Dillon MD Primary Care Provider [phone] Encounter Details Date Type Department Care Team (Late st Contact Info) Description 05/26/2022 Lab Requisition [facility] Laboratory Services [address] [place] [phone] Tashi Fuller MD [address] [place] [address] [address] Encounter for screening for COVID-19 [...] Info) Description 11/15/2024 12:00 PM CDT [facility] [address] [place] [address] Jeremias Dillon MD [address] [place] [address] documented as of this encounter Procedures Procedure Name Priority Date/Time Associated Diagnosis Comments SARS-COV-2 BY MOLECULAR Routine 05/26/2022 7:30 AM CDT Encounter for screening for COVID-19 documented in this encounter Results * SARS-COV-2 BY MOLECULAR (05/26/2022 7:30 AM CDT) SARSCOV2 NOT DETECTED (Referen ce Range for this test is Not Detected ) [facility] THERMOFISHER FAST DX 05/27/2022 12:18 AM CDT [facility] Comment:This test was perfor med by a RT-PCR method. Other Non-Phlebotomy Collection / Unknown 05/26/2022 7:30 AM CDT 05/26/2022 11:55 AM CDT Narrative [facility] - 05/27/2022 12:18 AM CDT Authorized Fact Sheets about this test for providers and patients are available at: https://www.fda.gov/medical-devices/uanlzsemm-lmznqapmio-mwyjoqg-devices/emergen -us e-authorizations us Tashi Fuller MD MICROBIOLOGY - GENERAL ORDERAB LES Final Result [facility] [address] [place] [address], documented in this encounter Visit Diagnoses Diagnosis Encounter for screening for COVID-19 documented in this encounter Additional Health Concerns Infection Onset Date Last Indicated Resolved Time COVID - 19 12/16/2021 06/23/2022 07/03/2022 12:1 6 AM NON PROFIT JOB TITLES COVID - 19 08/11/2022 10/27/2022 11/06/2022 12:1 6 AM CDT documented as of this encounter Care Teams Janitor Custodian Relationship Specialty Start Date End Date Tashi Fuller MD [address] [place] [address] [address] [place] [address] PCP - General Family Medicine 04/13/22 07/04/23 Jeremias Dillon MD [address] [facility] [address] [place] [address] PCP - General Internal Medicine 07/05/23 Jeremias Dillon MD [address] [facility] [address] [place] [address] Internal Medicine 07/08/21 documented as of this encounter
--- OUTSIDE RECORDS SUMMARY | 2024-10-24 09:00 | XMS_ITS | Encounter Summary ---
Author Organization [facility] Address [address] [place] [address] Phone Care Team Providers Care Clutch Specialist Name Role Phone Jeremias Dillon MD Unavailable [phone] Tashi Fuller MD Primary Care Provider [phone] Jeremias Dillon MD Primary Care Provider [phone] Encounter Details Date Type Department Care Team (Late st Contact Info) Description 04/28/2022 Lab Requisition [facility] Laboratory Services [address] [place] [phone] Tashi Fuller MD [address] [place] [address] [address] Encounter for screening for COVID-19 [...] Description 11/15/2024 12:00 PM CDT [facility] [address] [place] [address] Jeremias Dillon MD [address] [place] [address] documented as of this encounter Procedures Procedure Name Priority Date/Time Associated Diagnosis Comments SARS-COV-2 BY MOLECULAR Routine 04/28/2022 7:25 AM CDT documented in this encounter Results * SARS-COV-2 BY MOLECULAR (04/28/2022 7:25 AM CDT) SARSCOV2 NOT DETECTED (Referen ce Range for this test is Not Detected ) [facility] THERMOFISHER FAST DX 04/28/2022 10:11 PM CDT [facility] Comment:This test was perfor med by a RT-PCR method. Other Non-Phlebotomy Collection / Unknown 04/28/2022 7:25 AM CDT 04/28/2022 9:35 AM CDT Narrative [facility] - 04/28/2022 10:11 PM CDT Authorized Fact Sheets about this test for providers and patients are available at: https://www.fda.gov/medical-devices/qohuwqcxt-zkyyptytgw-rvxkwnb-devices/emergen -us e-authorizations Result [facility] Tashi Fuller MD MICROBIOLOGY - GENERAL ORDERAB LES Final Result Performing Organization Address City/State/[facility] Co de Phone Number [facility] [address] [place] [address], documented in this encounter Visit Diagnoses Diagnosis Encounter for screening for COVID-19 documented in this encounter Additional Health Concerns Infection Onset Date Last Indicated Resolved Time COVID - 19 12/16/2021 06/23/2022 07/03/2022 12:1 6 AM POLITICAL REPORTER COVID - 19 08/11/2022 10/27/2022 11/06/2022 12:1 6 AM CDT documented as of this encounter Care Teams Clutch Specialist Relationship Specialty Start Date End Date Tashi Fuller MD [address] [facility] [address] [place] [address] PCP - General Family Medicine 04/13/22 07/04/23 Jeremias Dillon MD [address] [address] PCP - General Internal Medicine 07/05/23 Jeremias Dillon MD [address] [address] Internal Medicine 07/08/21 documented as of this encounter
--- OUTSIDE RECORDS SUMMARY | 2024-10-24 09:00 | XMS_ITS | Encounter Summary ---
Author Organization [facility] Address [address] [place] [address] Phone Care Team Providers Care Professor Of Geography Name Role Phone Jeremias Dillon MD Primary Care Provider [phone] Provider, Unknown Primary Care Provider Unavaila ble Jeremias Dillon MD Unavailable [phone] Tashi Fuller MD Primary Care Provider [phone] Jeremias Dillon MD Primary Care Provider Encounter Details Date Type Department Care Team (Late st Contact Info) Description 07/01/2021 Lab Requisition [facility] Laboratory Services 1 [place] [address] Tashi Fuller MD [address] [place] [address] [address] Encounter for screening for COVID-19 Social History [...] [facility] 1 [facility] [place] [address] Jeremias Dillon MD [address] [facility] 160 [place] [address] documented as of this encounter Procedures Procedure Name Priority Date/Time Associated Diagnosis Comments SARS-COV-2 BY MOLECULAR Routine 07/01/2021 7:30 AM ATTENDING UROLOGIST Encounter for screening for COVID-19 documented in this encounter Results * SARS-COV-2 BY MOLECULAR (07/01/2021 7:30 AM ATTENDING UROLOGIST) SARSCOV2 NOT DETECTED (Referen ce Range for this test is Not Detected ) [facility] THERMOFISHER FAST DX 07/02/2021 8:54 AM ATTENDING UROLOGIST [facility] Comment:This test was perfor med by a RT-PCR method. Other Non-Phlebotomy Collection / Unknown 07/01/2021 7:30 AM ATTENDING UROLOGIST 07/01/2021 10:32 AM ATTENDING UROLOGIST Narrative [facility] - 07/02/2021 8:54 AM ATTENDING UROLOGIST Authorized Fact Sheets about this test for providers and patients are available at: https://www.fda.gov/medical-devices/rrjkwrpyv-fuovsucfaq-lrbodnn-devices/emergen cy-us e-authorizations us Tashi Fuller MD MICROBIOLOGY - GENERAL ORDERAB LES Final Result [facility] [address] [place] [address], documented in this encounter Visit Diagnoses Diagnosis Encounter for screening for COVID-19 documented in this encounter Additional Health Concerns Infection Onset Date Last Indicated Resolved Time COVID - 19 05/13/2021 08/19/2021 08/21/2021 7:20 PM ATTENDING UROLOGIST COVID - 19 07/08/2021 08/19/2021 08/21/2021 7:20 PM ATTENDING UROLOGIST COVID - 19 Confirmed 08/19/2021 08/26/2021 022 12:16 AM ATTENDING UROLOGIST COVID - 19 08/26/2021 08/26/2021 08/28/2021 6:12 AM ATTENDING UROLOGIST COVID - 19 09/23/2021 09/23/2021 10/13/2021 12:1 6 AM ATTENDING UROLOGIST COVID - 19 12/02/2021 12/02/2021 12/02/2021 11:1 1 PM CDT COVID - 19 Confirmed 12/02/2021 12/02/2021 022 12:16 AM CDT COVID - 19 12/16/2021 06/23/2022 07/03/2022 12:1 6 AM ATTENDING UROLOGIST COVID - 19 08/11/2022 10/27/2022 11/06/2022 12:1 6 AM CDT documented as of this encounter Care Teams Professor Of Geography Relationship Specialty Start Date End Date Jeremias Dillon MD [address] [facility] [address] [place] [address] PCP - General Internal Medicine 07/21/16 07/07/21 Provider, Unknown UNKNOWN PCP - General 07/08/21 04/12/22 Tashi Fuller MD 4 [facility] [address] [address] PCP - General Family Medicine 04/13/22 07/04/23 Jeremias Dillon MD [address] [facility] 160 [place] [address] PCP - General Internal Medicine 07/05/23 Jeremias Dillon MD [address] [facility] [address] [place] [address] Internal Medicine 07/08/21 documented as of this encounter
--- OUTSIDE RECORDS SUMMARY | 2024-10-24 09:00 | XMS_ITS | Encounter Summary ---
Author Organization [facility] Address [address] [place] [address] Phone Care Team Providers Care Orthopedic Rn Name Role Phone Jeremias Dillon MD Unavailable [phone] Tashi Fuller MD Primary Care Provider Jeremias Dillon MD Primary Care Provider [phone] Encounter Details Date Type Department Care Team (Late st Contact Info) Description 09/09/2022 Lab Requisition [facility] Laboratory Services 1 [place] [phone] Tashi Fuller MD [address] [place] [address] [address] Encounter for screening for COVID-19 [...] Info) Description 11/15/2024 12:00 PM CDT [facility] 1 [place] [address] Jeremias Dillon MD [address] [facility] [place] [address] documented as of this encounter Procedures Procedure Name Priority Date/Time Associated Diagnosis Comments SARS-COV-2 BY MOLECULAR Routine 09/09/2022 7:54 AM RELIEF MAP MODELER Encounter for screening for COVID-19 documented in this encounter Results * SARS-COV-2 BY MOLECULAR (09/09/2022 7:54 AM RELIEF MAP MODELER) SARSCOV2 NOT DETECTED (Referen ce Range for this test is Not Detected ) [facility] THERMOFISHER FAST DX 09/09/2022 5:12 PM RELIEF MAP MODELER [facility] Comment:This test was perfor med by a RT-PCR method. Other Non-Phlebotomy Collection / Unknown 09/09/2022 7:54 AM RELIEF MAP MODELER 09/09/2022 9:59 AM RELIEF MAP MODELER Narrative [facility] - 09/09/2022 5:12 PM RELIEF MAP MODELER Authorized Fact Sheets about this test for providers and patients are available at: https://www.fda.gov/medical-devices/tazqfsvcq-sqyhsuajvz-nnkeuwe-devices/emergen -us e-authorizations Tashi Fuller MD MICROBIOLOGY - GENERAL ORDERAB LES Final Result [facility] [address] [place] [address], documented in this encounter Visit Diagnoses Diagnosis Encounter for screening for COVID-19 documented in this encounter Additional Health Concerns Infection Onset Date Last Indicated Resolved Time COVID - 19 08/11/2022 10/27/2022 11/06/2022 12:1 6 AM CDT documented as of this encounter Care Teams Orthopedic Rn Relationship Specialty Start Date End Date Tashi Fuller MD [address] [place] [address] [address] [place] [address] PCP - General Family Medicine 04/13/22 07/04/23 Jeremias Dillon MD [address] [facility] [place] [address] PCP - General Internal Medicine 07/05/23 Jeremias Dillon MD [address] [facility] [place] [address] Internal Medicine 07/08/21 documented as of this encounter
--- OUTSIDE RECORDS SUMMARY | 2024-10-24 09:00 | XMS_ITS | Encounter Summary ---
Author Organization [facility] Address [address] [place] [address] Phone Care Team Providers Care Gambling Box Person Name Role Phone Provider, Unknown Primary Care Provider Unavaila ble Jeremias Dillon MD Unavailable [phone] Tashi Fuller MD Primary Care Provider [phone] Jeremias Dillon MD Primary Care Provider [phone] Encounter Details Date Type Department Care Team (Late st Contact Info) Description 08/19/2021 Lab Requisition [facility] Laboratory Services 1 [place] [phone] Tashi Fuller MD [address] [place] [address] [facility] [address] [place] [address] Social History Tobacco Use Types Packs/Day Years [...] Info) Description 11/15/2024 12:00 PM CDT [facility] 1 [place] [address] Jeremias Dillon MD [address] [facility] [place] [address] documented as of this encounter Procedures Procedure Name Priority Date/Time Associated Diagnosis Comments SARS-COV-2 BY MOLECULAR Routine 08/19/2021 7:47 AM REGULATORY SCIENTIST documented in this encounter Results * (ABNORMAL) SARS-COV-2 BY MOLECULAR (08/19/2021 7:47 AM REGULATORY SCIENTIST) SARSCOV2 DETECTED( A) (Referenc e Range for this test is Not Detected) [facility] THERMOFISHER FAST DX 08/21/2021 7:20 PM REGULATORY SCIENTIST [facility] Comment:This test was perfor med by a RT-PCR method. Other Non-Phlebotomy Collection / Unknown 08/19/2021 7:47 AM REGULATORY SCIENTIST 08/19/2021 11:27 AM REGULATORY SCIENTIST Narrative [facility] - 08/21/2021 7:20 PM REGULATORY SCIENTIST Authorized Fact Sheets about this test for providers and patients are available at: https://www.fda.gov/medical-devices/likbkekuf-qwkktvozkk-hnjltck-devices/emergen cy-us e-authorizations Tashi Fuller MD MICROBIOLOGY - GENERAL ORDERAB LES Final Result Performing Organization Address City/State/[facility] Co de Phone Number [facility] [address] [facility] [place] [address], documented in this encounter Visit Diagnoses Not on filedocumented in this encounter Additional Health Concerns Infection Onset Date Last Indicated Resolved Time COVID - 19 05/13/2021 08/19/2021 08/21/2021 7:20 PM REGULATORY SCIENTIST COVID - 19 07/08/2021 08/19/2021 08/21/2021 7:20 PM REGULATORY SCIENTIST COVID - 19 Confirmed 08/19/2021 08/26/2021 022 12:16 AM REGULATORY SCIENTIST COVID - 19 08/26/2021 08/26/2021 08/28/2021 6:12 AM REGULATORY SCIENTIST COVID - 19 09/23/2021 09/23/2021 10/13/2021 12:1 6 AM REGULATORY SCIENTIST COVID - 19 12/02/2021 12/02/2021 12/02/2021 11:1 1 PM CDT COVID - 19 Confirmed 12/02/2021 12/02/2021 022 12:16 AM CDT COVID - 19 12/16/2021 06/23/2022 07/03/2022 12:1 6 AM REGULATORY SCIENTIST COVID - 19 08/11/2022 10/27/2022 11/06/2022 12:1 6 AM CDT documented as of this encounter Care Teams Gambling Box Person Relationship Specialty Start Date End Date Provider, Unknown UNKNOWN PCP - General 07/08/21 04/12/22 Tashi Fuller MD 4 [facility] [address] [place] [address] PCP - General Family Medicine 04/13/22 07/04/23 Jeremias Dillon MD [address] [facility] 160 [place] [address] PCP - General Internal Medicine 07/05/23 Jeremias Dillon MD [address] [facility] 160 [place] [address] Internal Medicine 07/08/21 documented as of this encounter
--- OUTSIDE RECORDS SUMMARY | 2024-10-24 09:00 | XMS_ITS | Encounter Summary ---
Author Organization [facility] Address [address] [place] [address] Phone Care Team Providers Care Construction Project Engineer Name Role Phone Jeremias Dillon MD Primary Care Provider [phone] Provider, Unknown Primary Care Provider Unavaila ble Jeremias Dillon MD Unavailable [phone] Tashi Fuller MD Primary Care Provider [phone] Jeremias Dillon MD Primary Care Provider [phone] Encounter Details Date Type Department Care Team (Late st Contact Info) Description 06/03/2021 Lab Requisition [facility] Laboratory Services 1 [place] [address] Tashi Fuller MD [address] [place] [address] [address] Encounter for screening for COVID-19 Social History [...] [facility] 1 [facility] [place] [address] Jeremias Dillon MD [address] [facility] 160 [place] [address] documented as of this encounter Procedures Procedure Name Priority Date/Time Associated Diagnosis Comments SARS-COV-2 BY MOLECULAR Routine 06/03/2021 7:26 AM CDT Encounter for screening for COVID-19 documented in this encounter Results * SARS-COV-2 BY MOLECULAR (06/03/2021 7:26 AM CDT) SARSCOV2 NOT DETECTED (Referen ce Range for this test is Not Detected ) [facility] THERMOFISHER FAST DX 06/03/2021 6:58 PM CDT [facility] Comment:This test was perfor med by a RT-PCR method. Other Non-Phlebotomy Collection / Unknown 06/03/2021 7:26 AM CDT 06/03/2021 10:46 AM CDT Narrative [facility] - 06/03/2021 6:58 PM CDT Authorized Fact Sheets about this test for providers and patients are available at: https://www.fda.gov/medical-devices/plqgakhzu-hqjqreoijs-lejhtvv-devices/emergen -us e-authorizations us Tashi Fuller MD MICROBIOLOGY - GENERAL ORDERAB LES Final Result [facility] [address] [place] [address], documented in this encounter Visit Diagnoses Diagnosis Encounter for screening for COVID-19 documented in this encounter Additional Health Concerns Infection Onset Date Last Indicated Resolved Time COVID - 19 05/13/2021 08/19/2021 08/21/2021 7:20 PM FREIGHT ADJUSTER COVID - 19 07/08/2021 08/19/2021 08/21/2021 7:20 PM FREIGHT ADJUSTER COVID - 19 Confirmed 08/19/2021 08/26/2021 022 12:16 AM FREIGHT ADJUSTER COVID - 19 08/26/2021 08/26/2021 08/28/2021 6:12 AM FREIGHT ADJUSTER COVID - 19 09/23/2021 09/23/2021 10/13/2021 12:1 6 AM FREIGHT ADJUSTER COVID - 19 12/02/2021 12/02/2021 12/02/2021 11:1 1 PM CDT COVID - 19 Confirmed 12/02/2021 12/02/2021 022 12:16 AM CDT COVID - 19 12/16/2021 06/23/2022 07/03/2022 12:1 6 AM FREIGHT ADJUSTER COVID - 19 08/11/2022 10/27/2022 11/06/2022 12:1 6 AM CDT documented as of this encounter Care Teams Construction Project Engineer Relationship Specialty Start Date End Date Jeremias Dillon MD [address] [facility] [address] [place] [address] PCP - General Internal Medicine 07/21/16 07/07/21 Provider, Unknown UNKNOWN PCP - General 07/08/21 04/12/22 Tashi Fuller MD [address] [address] PCP - General Family Medicine 04/13/22 07/04/23 Jeremias Dillon MD [address] [facility] [address] [place] [address] PCP - General Internal Medicine 07/05/23 Jeremias Dillon MD [address] [facility] 160 [place] [address] Internal Medicine 07/08/21 documented as of this encounter
--- OUTSIDE RECORDS SUMMARY | 2024-10-24 09:00 | XMS_ITS | Encounter Summary ---
Author Organization [facility] Address [address] [place] [address] Phone Care Team Providers Care Process Coach Name Role Phone Provider, Unknown Primary Care Provider Unavaila ble Jeremias Dillon MD Unavailable [phone] Tashi Fuller MD Primary Care Provider [phone] Jeremias Dillon MD Primary Care Provider [phone] Encounter Details Date Type Department Care Team (Late st Contact Info) Description 07/22/2021 Lab Requisition [facility] Laboratory Services 1 [place] [id number] Tashi Fuller MD [address] [place] [address] [facility] [address] [place] [address] Encounter for screening for COVID-19 [...] Info) Description 11/15/2024 12:00 PM CDT [facility] 1 [place] [address] Jeremias Dillon MD [address] [facility] [place] [address] documented as of this encounter Procedures Procedure Name Priority Date/Time Associated Diagnosis Comments SARS-COV-2 BY MOLECULAR Routine 07/22/2021 7:33 AM DITCH INSPECTOR Encounter for screening for COVID-19 documented in this encounter Results * SARS-COV-2 BY MOLECULAR (07/22/2021 7:33 AM DITCH INSPECTOR) SARSCOV2 NOT DETECTED (Referen ce Range for this test is Not Detected ) [facility] THERMOFISHER FAST DX 07/23/2021 5:59 PM DITCH INSPECTOR [facility] Comment:This test was perfor med by a RT-PCR method. Other No Phlebotomy Charged / Unknown 07/22/2021 7:33 AM DITCH INSPECTOR 07/22/2021 11:09 AM DITCH INSPECTOR Narrative [facility] - 07/23/2021 5:59 PM DITCH INSPECTOR Authorized Fact Sheets about this test for providers and patients are available at: https://www.fda.gov/medical-devices/vmuyrhpbx-evvxchhspq-vqfhbfe-devices/emergen -us e-authorizations us Tashi Fuller MD MICROBIOLOGY - GENERAL ORDERAB LES Final Result [facility] [address] [place] [address], documented in this encounter Visit Diagnoses Diagnosis Encounter for screening for COVID-19 documented in this encounter Additional Health Concerns Infection Onset Date Last Indicated Resolved Time COVID - 19 05/13/2021 08/19/2021 08/21/2021 7:20 PM DITCH INSPECTOR COVID - 19 07/08/2021 08/19/2021 08/21/2021 7:20 PM DITCH INSPECTOR COVID - 19 Confirmed 08/19/2021 08/26/2021 022 12:16 AM DITCH INSPECTOR COVID - 19 08/26/2021 08/26/2021 08/28/2021 6:12 AM DITCH INSPECTOR COVID - 19 09/23/2021 09/23/2021 10/13/2021 12:1 6 AM DITCH INSPECTOR COVID - 19 12/02/2021 12/02/2021 12/02/2021 11:1 1 PM CDT COVID - 19 Confirmed 12/02/2021 12/02/2021 022 12:16 AM CDT COVID - 19 12/16/2021 06/23/2022 07/03/2022 12:1 6 AM DITCH INSPECTOR COVID - 19 08/11/2022 10/27/2022 11/06/2022 12:1 6 AM CDT documented as of this encounter Care Teams Process Coach Relationship Specialty Start Date End Date Provider, Unknown UNKNOWN PCP - General 07/08/21 04/12/22 Tashi Fuller MD 4 [facility] [address] [place] [address] PCP - General Family Medicine 04/13/22 07/04/23 Jeremias Dillon MD [address] [facility] [address] [place] [address] PCP - General Internal Medicine 07/05/23 Jeremias Dillon MD [address] [facility] [address] [place] [address] Internal Medicine 07/08/21 documented as of this encounter
--- OUTSIDE RECORDS SUMMARY | 2024-10-24 09:00 | XMS_ITS | Encounter Summary ---
Author Organization [facility] Address [address] [place] [address] Phone Care Team Providers Care Riprap Placing Supervisor Name Role Phone Jeremias Dillon MD Unavailable [phone] Tashi Fuller MD Primary Care Provider [phone] Jeremias Dillon MD Primary Care Provider [phone] Encounter Details Date Type Department Care Team (Late st Contact Info) Description 06/23/2022 Lab Requisition [facility] Laboratory Services 1 [place] [phone] Tashi Fuller MD [address] [place] [address] [address] Encounter for screening for COVID-19 [...] [facility] 1 [place] [address] Jeremias Dillon MD [address] [facility] [address] [place] [address] documented as of this encounter Procedures Procedure Name Priority Date/Time Associated Diagnosis Comments SARS-COV-2 BY MOLECULAR Routine 06/23/2022 7:31 AM CADDY/CADDIE SUPERVISOR Encounter for screening for COVID-19 documented in this encounter Results * SARS-COV-2 BY MOLECULAR (06/23/2022 7:31 AM CADDY/CADDIE SUPERVISOR) SARSCOV2 NOT DETECTED (Referen ce Range for this test is Not Detected ) [facility] THERMOFISHER FAST DX 06/24/2022 4:42 AM CADDY/CADDIE SUPERVISOR [facility] Comment:This test was perfor med by a RT-PCR method. Other Non-Phlebotomy Collection / Unknown 06/23/2022 7:31 AM CADDY/CADDIE SUPERVISOR 06/23/2022 11:16 AM CADDY/CADDIE SUPERVISOR Narrative [facility] - 06/24/2022 4:42 AM CADDY/CADDIE SUPERVISOR Authorized Fact Sheets about this test for providers and patients are available at: https://www.fda.gov/medical-devices/vsmaikaex-izidyqezyy-gvkuera-devices/emergen -us e-authorizations us Tashi Fuller MD MICROBIOLOGY - GENERAL ORDERAB LES Final Result [facility] [address] [place] [address], documented in this encounter Visit Diagnoses Diagnosis Encounter for screening for COVID-19 documented in this encounter Additional Health Concerns Infection Onset Date Last Indicated Resolved Time COVID - 19 12/16/2021 06/23/2022 07/03/2022 12:1 6 AM CADDY/CADDIE SUPERVISOR COVID - 19 08/11/2022 10/27/2022 11/06/2022 12:1 6 AM CDT documented as of this encounter Care Teams Riprap Placing Supervisor Relationship Specialty Start Date End Date Tashi Fuller MD [address] [place] [address] [address] [place] [address] PCP - General Family Medicine 04/13/22 07/04/23 Jeremias Dillon MD [address] [address] PCP - General Internal Medicine 07/05/23 Jeremias Dillon MD [address] [address] Internal Medicine 07/08/21 documented as of this encounter
--- OUTSIDE RECORDS SUMMARY | 2024-10-24 09:00 | XMS_ITS | Encounter Summary ---
Author Organization [facility] Address [address] [place] [address] Phone Care Team Providers Care Bridge Manager Name Role Phone Jeremias Dillon MD Unavailable [phone] Tashi Fuller MD Primary Care Provider [phone] Jeremias Dillon MD Primary Care Provider [phone] Encounter Details Date Type Department Care Team (Late st Contact Info) Description 06/02/2022 Lab Requisition [facility] Laboratory Services 1 [place] [phone] Tashi Fuller MD [address] [place] [address] [address] Encounter for screening for COVID-19 [...] Info) Description 11/15/2024 12:00 PM CDT [facility] 1 [place] [address] Jeremias Dillon MD [address] [place] [address] documented as of this encounter Procedures Procedure Name Priority Date/Time Associated Diagnosis Comments SARS-COV-2 BY MOLECULAR Routine 06/02/2022 7:35 AM CDT Encounter for screening for COVID-19 documented in this encounter Results * SARS-COV-2 BY MOLECULAR (06/02/2022 7:35 AM CDT) SARSCOV2 NOT DETECTED (Referen ce Range for this test is Not Detected ) [facility] THERMOFISHER FAST DX 06/02/2022 11:59 PM CDT [facility] Comment:This test was perfor med by a RT-PCR method. Other Non-Phlebotomy Collection / Unknown 06/02/2022 7:35 AM CDT 06/02/2022 11:04 AM CDT Narrative [facility] - 06/02/2022 11:59 PM CDT Authorized Fact Sheets about this test for providers and patients are available at: https://www.fda.gov/medical-devices/vucdzvzsw-aryxjvcgmq-mvaferf-devices/emergen -us e-authorizations us Tashi Fuller MD MICROBIOLOGY - GENERAL ORDERAB LES Final Result [facility] [address] [place] [address], documented in this encounter Visit Diagnoses Diagnosis Encounter for screening for COVID-19 documented in this encounter Additional Health Concerns Infection Onset Date Last Indicated Resolved Time COVID - 19 12/16/2021 06/23/2022 07/03/2022 12:1 6 AM DIRECTOR SPEECH COVID - 19 08/11/2022 10/27/2022 11/06/2022 12:1 6 AM CDT documented as of this encounter Care Teams Bridge Manager Relationship Specialty Start Date End Date Tashi Fuller MD [address] [place] [address] [address] [place] [address] PCP - General Family Medicine 04/13/22 07/04/23 Jeremias Dillon MD [address] [email or web address] [address] [place] [address] PCP - General Internal Medicine 07/05/23 Jeremias Dillon MD [address] [email or web address] [address] [place] [address] Internal Medicine 07/08/21 documented as of this encounter
--- OUTSIDE RECORDS SUMMARY | 2024-10-24 09:00 | XMS_ITS | Encounter Summary ---
Author Organization [facility] Address [address] [place] [address] Phone Care Team Providers Care Slider Assembler Name Role Phone Jeremias Dillon MD Primary Care Provider Provider, Unknown Primary Care Provider Unavaila ble Jeremias Dillon MD Unavailable [phone] Tashi Fuller MD Primary Care Provider [phone] Jeremias Dillon MD Primary Care Provider [phone] Encounter Details Date Type Department Care Team (Late st Contact Info) Description 06/17/2021 Lab Requisition [facility] Laboratory Services 1 [place] [address] Tashi Fuller MD [address] [place] [address] [address] Social History Tobacco Use Types Packs/Day Years [...] PM CDT [facility]ment [facility] 1 [place] [address] Jeremias Dillon MD [address] [place] [address] documented as of this encounter Procedures Procedure Name Priority Date/Time Associated Diagnosis Comments SARS-COV-2 BY MOLECULAR Routine 06/17/2021 7:15 AM CDT documented in this encounter Results * SARS-COV-2 BY MOLECULAR (06/17/2021 7:15 AM CDT) SARSCOV2 NOT DETECTED (Referen ce Range for this test is Not Detected ) [facility] THERMOFISHER FAST DX 06/17/2021 11:51 PM CDT [facility] Comment:This test was perfor med by a RT-PCR method. Other Non-Phlebotomy Collection / Unknown 06/17/2021 7:15 AM CDT 06/17/2021 10:58 AM CDT Narrative [facility] - 06/17/2021 11:51 PM CDT Authorized Fact Sheets about this test for providers and patients are available at: https://www.fda.gov/medical-devices/qczbipmzs-cdjqckmzng-kazcyvt-devices/emergen -us e-authorizations us Tashi Fuller MD MICROBIOLOGY - GENERAL ORDERAB LES Final Result Performing Organization Address City/State/[facility] Co de Phone Number [facility] [address] [place] [address], documented in this encounter Visit Diagnoses Not on filedocumented in this encounter Additional Health Concerns Infection Onset Date Last Indicated Resolved Time COVID - 19 05/13/2021 08/19/2021 08/21/2021 7:20 PM SAFE DEPOSIT BOX RENTAL CLERK COVID - 19 07/08/2021 08/19/2021 08/21/2021 7:20 PM SAFE DEPOSIT BOX RENTAL CLERK COVID - 19 Confirmed 08/19/2021 08/26/2021 022 12:16 AM SAFE DEPOSIT BOX RENTAL CLERK COVID - 19 08/26/2021 08/26/202108/28/2021 6:12 AM SAFE DEPOSIT BOX RENTAL CLERK COVID - 19 09/23/2021 09/23/2021 10/13/2021 12:1 6 AM SAFE DEPOSIT BOX RENTAL CLERK COVID - 19 12/02/2021 12/02/2021 12/02/2021 11:1 1 PM CDT COVID - 19 Confirmed 12/02/2021 12/02/2021 022 12:16 AM CDT COVID - 19 12/16/2021 06/23/2022 07/03/2022 12:1 6 AM SAFE DEPOSIT BOX RENTAL CLERK COVID - 19 08/11/2022 10/27/2022 11/06/2022 12:1 6 AM CDT documented as of this encounter Care Teams Slider Assembler Relationship Specialty Start Date End Date Jeremias Dillon MD [address] [place] [address] PCP - General Internal Medicine 07/21/16 07/07/21 Provider, Unknown UNKNOWN PCP - General 07/08/21 04/12/22 Tashi Fuller MD 4 [facility] [address] [place] [address] PCP - General Family Medicine 04/13/22 07/04/23 Jeremias Dillon MD [address] [place] [address] PCP - General Internal Medicine 07/05/23 Jeremias Dillon MD [address] [place] [address] Internal Medicine 07/08/21 documented as of this encounter
--- OUTSIDE RECORDS SUMMARY | 2024-10-24 09:00 | XMS_ITS | Encounter Summary ---
Author Organization [facility] Address [address] [place] [address] Phone Care Team Providers Care Residential Assistant Name Role Phone Jeremias Dillon MD Unavailable [phone] Tashi Fuller MD Primary Care Provider [phone] Jeremias Dillon MD Primary Care Provider [phone] Encounter Details Date Type Department Care Team (Late st Contact Info) Description 09/22/2022 Lab Requisition [facility] Laboratory Services 1 [place] [phone] Tashi Fuller MD [address] [place] [address] [address] Encounter for screening for COVID-19 [...] 11/15/2024 12:00 PM CDT [facility]ment [facility] 1 [place] [address] Jeremias Dillon MD [address] [place] [address] documented as of this encounter Procedures Procedure Name Priority Date/Time Associated Diagnosis Comments SARS-COV-2 BY MOLECULAR Routine 09/22/2022 7:35 AM SALES PROJECT MANAGER Encounter for screening for COVID-19 documented in this encounter Results * SARS-COV-2 BY MOLECULAR (09/22/2022 7:35 AM SALES PROJECT MANAGER) SARSCOV2 NOT DETECTED (Referen ce Range for this test is Not Detected ) [facility] THERMOFISHER FAST DX 09/22/2022 11:05 PM SALES PROJECT MANAGER [facility] Comment:This test was perfor med by a RT-PCR method. Other Non-Phlebotomy Collection / Unknown 09/22/2022 7:35 AM SALES PROJECT MANAGER 09/22/2022 10:22 AM SALES PROJECT MANAGER Narrative [facility] - 09/22/2022 11:05 PM SALES PROJECT MANAGER Authorized Fact Sheets about this test for providers and patients are available at: https://www.fda.gov/medical-devices/mtbfkeyww-knnqewzzjk-tqfkkkf-devices/emergen -us e-authorizations Tashi Fuller MD MICROBIOLOGY - GENERAL ORDERAB LES Final Result [facility] [address] [place] [address], documented in this encounter Visit Diagnoses Diagnosis Encounter for screening for COVID-19 documented in this encounter Additional Health Concerns Infection Onset Date Last Indicated Resolved Time COVID - 19 08/11/2022 10/27/2022 11/06/2022 12:1 6 AM CDT documented as of this encounter Care Teams Residential Assistant Relationship Specialty Start Date End Date Tashi Fuller MD [address] [place] [address] [address] [place] [address] PCP - General Family Medicine 04/13/22 07/04/23 Jeremias Dillon MD [address] [place] [address] PCP - General Internal Medicine 07/05/23 Jeremias Dillon MD [address] [place] [address] Internal Medicine 07/08/21 documented as of this encounter
--- OUTSIDE RECORDS SUMMARY | 2024-10-24 09:00 | XMS_ITS | Encounter Summary ---
Author Organization [facility] Address [address] [place] [address] Phone Care Team Providers Care Private Inquiry Agent Name Role Phone Provider, Unknown Primary Care Provider Unavaila ble Jeremias Dillon MD Unavailable [phone] Tashi Fuller MD Primary Care Provider [phone] Jeremias Dillon MD Primary Care Provider [phone] Encounter Details Date Type Department Care Team (Late st Contact Info) Description 08/12/2021 Lab Requisition [facility] Laboratory Services 1 [place] [phone] Tashi Fuller MD [address] [place] [address] [facility] [address] [place] [address] Encounter for screening for COVID-19 [...] Info) Description 11/15/2024 12:00 PM CDT [facility] 1 [place] [address] Jeremias Dillon MD [address] [place] [address] documented as of this encounter Procedures Procedure Name Priority Date/Time Associated Diagnosis Comments SARS-COV-2 BY MOLECULAR Routine 08/12/2021 7:31 AM HEADER SET UP OPERATOR Encounter for screening for COVID-19 documented in this encounter Results * SARS-COV-2 BY MOLECULAR (08/12/2021 7:31 AM HEADER SET UP OPERATOR) SARSCOV2 NOT DETECTED (Referen ce Range for this test is Not Detected ) [facility] THERMOFISHER FAST DX 08/15/2021 9:49 AM HEADER SET UP OPERATOR [facility] Comment:This test was perfor med by a RT-PCR method. Other No Phlebotomy Charged / Unknown 08/12/2021 7:31 AM HEADER SET UP OPERATOR 08/12/2021 11:01 AM HEADER SET UP OPERATOR Narrative [facility] - 08/15/2021 9:49 AM HEADER SET UP OPERATOR Authorized Fact Sheets about this test for providers and patients are available at: https://www.fda.gov/medical-devices/sdeszbxwl-lxjscokrpn-qknnrfh-devices/emergen -us e-authorizations us Tashi Fuller MD MICROBIOLOGY - GENERAL ORDERAB LES Final Result [facility] [address] [facility] [place] [address], documented in this encounter Visit Diagnoses Diagnosis Encounter for screening for COVID-19 documented in this encounter Additional Health Concerns Infection Onset Date Last Indicated Resolved Time COVID - 19 05/13/2021 08/19/2021 08/21/2021 7:20 PM HEADER SET UP OPERATOR COVID - 19 07/08/2021 08/19/2021 08/21/2021 7:20 PM HEADER SET UP OPERATOR COVID - 19 Confirmed 08/19/2021 08/26/2021 022 12:16 AM HEADER SET UP OPERATOR COVID - 19 08/26/2021 08/26/2021 08/28/2021 6:12 AM HEADER SET UP OPERATOR COVID - 19 09/23/2021 09/23/2021 10/13/2021 12:1 6 AM HEADER SET UP OPERATOR COVID - 19 12/02/2021 12/02/2021 12/02/2021 11:1 1 PM CDT COVID - 19 Confirmed 12/02/2021 12/02/2021 022 12:16 AM CDT COVID - 19 12/16/2021 06/23/2022 07/03/2022 12:1 6 AM HEADER SET UP OPERATOR COVID - 19 08/11/2022 10/27/2022 11/06/2022 12:1 6 AM CDT documented as of this encounter Care Teams Private Inquiry Agent Relationship Specialty Start Date End Date Provider, Unknown UNKNOWN PCP - General 07/08/21 04/12/22 Tashi Fuller MD 4 [facility] [address] [place] [address] PCP - General Family Medicine 04/13/22 07/04/23 Jeremias Dillon MD [address] [facility] [address] [place] [address] PCP - General Internal Medicine 07/05/23 Jeremias Dillon MD [address] [facility] [address] [place] [address] Internal Medicine 07/08/21 documented as of this encounter
--- OUTSIDE RECORDS SUMMARY | 2024-10-24 09:00 | XMS_ITS | Encounter Summary ---
Author Organization [facility] Address [address] [place] [address] Phone Care Team Providers Care Dimmer Board Operator Name Role Phone Jeremias Dillon MD Unavailable [phone] Tashi Fuller MD Primary Care Provider [phone] Jeremias Dillon MD Primary Care Provider [phone] Encounter Details Date Type Department Care Team (Late st Contact Info) Description 05/12/2022 Lab Requisition [facility] Laboratory Services 1 [place] [phone] Tashi Fuller MD [address] [place] [address] [address] Encounter for screening for COVID-19 [...] Info) Description 11/15/2024 12:00 PM CDT [facility] 1 [place] [address] Jeremias Dillon MD [address] [place] [address] documented as of this encounter Procedures Procedure Name Priority Date/Time Associated Diagnosis Comments SARS-COV-2 BY MOLECULAR Routine 05/12/2022 7:24 AM CDT Encounter for screening for COVID-19 documented in this encounter Results * SARS-COV-2 BY MOLECULAR (05/12/2022 7:24 AM CDT) SARSCOV2 NOT DETECTED (Referen ce Range for this test is Not Detected ) [facility] THERMOFISHER FAST DX 05/13/2022 12:09 AM CDT [facility] Comment:This test was perfor med by a RT-PCR method. Other Non-Phlebotomy Collection / Unknown 05/12/2022 7:24 AM CDT 05/12/2022 11:58 AM CDT Narrative [facility] - 05/13/2022 12:09 AM CDT Authorized Fact Sheets about this test for providers and patients are available at: https://www.fda.gov/medical-devices/zfygdwdlo-triwnkymqb-mlysqvh-devices/emergen -us e-authorizations us Tashi Fuller MD MICROBIOLOGY - GENERAL ORDERAB LES Final Result [facility] [address] [place] [address], documented in this encounter Visit Diagnoses Diagnosis Encounter for screening for COVID-19 documented in this encounter Additional Health Concerns Infection Onset Date Last Indicated Resolved Time COVID - 19 12/16/2021 06/23/2022 07/03/2022 12:1 6 AM WORKERS COMPENSATION MANAGER COVID - 19 08/11/2022 10/27/2022 11/06/2022 12:1 6 AM CDT documented as of this encounter Care Teams Dimmer Board Operator Relationship Specialty Start Date End Date Tashi Fuller MD [address] [place] [address] [address] [place] [address] PCP - General Family Medicine 04/13/22 07/04/23 Jeremias Dillon MD [address] [facility] [address] [place] [address] PCP - General Internal Medicine 07/05/23 Jeremias Dillon MD [address] [facility] [address] [place] [address] Internal Medicine 07/08/21 documented as of this encounter
--- OUTSIDE RECORDS SUMMARY | 2024-10-24 09:00 | XMS_ITS | Encounter Summary ---
Author Organization [facility] Address [address] [place] [address] Phone Care Team Providers Care Manager Privacy Name Role Phone Jreemias Dillon MD Unavailable [phone] Tashi Fuller MD Primary Care Provider [phone] Jeremias Dillon MD Primary Care Provider [phone] Encounter Details Date Type Department Care Team (Late st Contact Info) Description 09/29/2022 Lab Requisition [facility] Laboratory Services 1 [place] [phone] Tashi Fuller MD [address] [place] [address] [address] Encounter for screening for COVID-19 [...] Info) Description 11/15/2024 12:00 PM CDT [facility] 1 [place] [address] Jeremias iDllon MD [address] [place] [address] documented as of this encounter Procedures Procedure Name Priority Date/Time Associated Diagnosis Comments SARS-COV-2 BY MOLECULAR Routine 09/29/2022 7:52 AM BINDERY TECHNICIAN Encounter for screening for COVID-19 documented in this encounter Results * SARS-COV-2 BY MOLECULAR (09/29/2022 7:52 AM BINDERY TECHNICIAN) SARSCOV2 NOT DETECTED (Referen ce Range for this test is Not Detected ) [facility] THERMOFISHER FAST DX 09/29/2022 8:07 PM BINDERY TECHNICIAN [facility] Comment:This test was perfor med by a RT-PCR method. Other COVID 19 Collection / Unknown 09/29/2022 7:52 AM BINDERY TECHNICIAN 09/29/2022 9:53 AM BINDERY TECHNICIAN Narrative [facility] - 09/29/2022 8:07 PM BINDERY TECHNICIAN Authorized Fact Sheets about this test for providers and patients are available at: https://www.fda.gov/medical-devices/pbqbmjjsb-aizfwzthfk-ietorsb-devices/emergen -us e-authorizations Result [facility] Tashi Fuller MD MICROBIOLOGY - GENERAL ORDERAB LES Final Result [facility] [address] [place] [address], documented in this encounter Visit Diagnoses Diagnosis Encounter for screening for COVID-19 documented in this encounter Additional Health Concerns Infection Onset Date Last Indicated Resolved Time COVID - 19 08/11/2022 10/27/2022 11/06/2022 12:1 6 AM CDT documented as of this encounter Care Teams Manager Privacy Relationship Specialty Start Date End Date Tashi Fuller MD [address] [place] [address] [address] [place] [address] PCP - General Family Medicine 04/13/22 07/04/23 Jeremias Dillon MD [address] [place] [address] PCP - General Internal Medicine 07/05/23 Jeremias Dillon MD [address] [place] [address] Internal Medicine 07/08/21 documented as of this encounter
--- OUTSIDE RECORDS SUMMARY | 2024-10-24 09:00 | XMS_ITS | Encounter Summary ---
Author Organization [facility] Address [address] [place] [address] Phone Care Team Providers Care Director Airport Operations Name Role Phone Jeremias Dillon MD Primary Care Provider [phone] Provider, Unknown Primary Care Provider Unavaila ble Jeremias Dillon MD Unavailable [phone] Tashi Fuller MD Primary Care Provider [phone] Jeremias Dillon MD Primary Care Provider [phone] Encounter Details Date Type Department Care Team (Late st Contact Info) Description 05/06/2021 Lab Requisition [facility] Laboratory Services 1 [place] [address] Tashi Fuller MD [address] [place] [address] [address] Encounter for screening for COVID-19 Social History [...] Info) Description 11/15/2024 12:00 PM CDT [facility] 1 [facility] [address] Jeremias Dillon MD [address] [facility] [address] [place] [address] documented as of this encounter Procedures Procedure Name Priority Date/Time Associated Diagnosis Comments SARS-COV-2 BY MOLECULAR Routine 05/06/2021 9:02 AM CDT documented in this encounter Results * SARS-COV-2 BY MOLECULAR (05/06/2021 9:02 AM CDT) SARSCOV2 NOT DETECTED (Referen ce Range for this test is Not Detected ) [facility] THERMOFISHER FAST DX 05/07/2021 8:26 AM CDT [facility] Comment:This test was perfor med by a RT-PCR method. Other No Phlebotomy Charged / Unknown 05/06/2021 9:02 AM CDT 05/06/2021 11:05 AM CDT Narrative [facility] - 05/07/2021 8:26 AM CDT Authorized Fact Sheets about this test for providers and patients are available at: https://www.fda.gov/medical-devices/damcncipy-mmlbxfsqxw-yuhppxo-devices/emergen cy-us e-authorizations us Tashi Fuller MD MICROBIOLOGY - GENERAL ORDERAB LES Final Result Performing Organization Address City/State/[facility] Co de Phone Number [facility] [address] [place] [address], documented in this encounter Visit Diagnoses Diagnosis Encounter for screening for COVID-19 documented in this encounter Additional Health Concerns Infection Onset Date Last Indicated Resolved Time COVID - 19 05/06/2021 05/06/2021 05/08/2021 1:46 PM CDT COVID - 19 05/13/2021 08/19/2021 08/21/2021 7:20 PM PORTABLE POWER TOOL REPAIRER COVID - 19 07/08/2021 08/19/2021 08/21/2021 7:20 PM PORTABLE POWER TOOL REPAIRER COVID - 19 Confirmed 08/19/2021 08/26/2021 022 12:16 AM PORTABLE POWER TOOL REPAIRER COVID - 19 08/26/2021 08/26/2021 08/28/2021 6:12 AM PORTABLE POWER TOOL REPAIRER COVID - 19 09/23/2021 09/23/2021 10/13/2021 12:1 6 AM PORTABLE POWER TOOL REPAIRER COVID - 19 12/02/2021 12/02/2021 12/02/2021 11:1 1 PM CDT COVID - 19 Confirmed 12/02/2021 12/02/2021 022 12:16 AM CDT COVID - 19 12/16/2021 06/23/2022 07/03/2022 12:1 6 AM PORTABLE POWER TOOL REPAIRER COVID - 19 08/11/2022 10/27/2022 11/06/2022 12:1 6 AM CDT documented as of this encounter Care Teams Director Airport Operations Relationship Specialty Start Date End Date Jeremias Dillon MD [address] [facility] [address] [place] [address] PCP - General Internal Medicine 07/21/16 07/07/21 Provider, Unknown UNKNOWN PCP - General 07/08/21 04/12/22 Tashi Fuller MD [address] [place] [address] [facility] [address] [place] [address] PCP - General Family Medicine 04/13/22 07/04/23 Jeremias Dillon MD [address] [facility] [address] [place] [address] PCP - General Internal Medicine 07/05/23 Jeremias Dillon MD [address] [facility] [address] [place] [address] Internal Medicine 07/08/21 documented as of this encounter
--- OUTSIDE RECORDS SUMMARY | 2024-10-24 09:00 | XMS_ITS | Encounter Summary ---
Author Organization [facility] Address [address] [place] [address] Phone Care Team Providers Care Women'S Health Care Nurse Practitioner Name Role Phone Jeremias Dillon MD Unavailable [phone] Tashi Fuller MD Primary Care Provider [phone] Jeremias Dillon MD Primary Care Provider [phone] Encounter Details Date Type Department Care Team (Late st Contact Info) Description 09/15/2022 Lab Requisition [facility] Laboratory Services 1 [place] [phone] Tashi Fuller MD [address] [place] [address] [address] Encounter for screening for COVID-19 [...] [facility] 1 [place] [address] Jeremias Dillon MD [address] [place] [address] documented as of this encounter Procedures Procedure Name Priority Date/Time Associated Diagnosis Comments SARS-COV-2 BY MOLECULAR Routine 09/15/2022 7:28 AM MUSIC COORDINATOR Encounter for screening for COVID-19 documented in this encounter Results * SARS-COV-2 BY MOLECULAR (09/15/2022 7:28 AM MUSIC COORDINATOR) SARSCOV2 NOT DETECTED (Referen ce Range for this test is Not Detected ) [facility] THERMOFISHER FAST DX 09/15/2022 9:47 PM MUSIC COORDINATOR [facility] Comment:This test was perfor med by a RT-PCR method. Other Non-Phlebotomy Collection / Unknown 09/15/2022 7:28 AM MUSIC COORDINATOR 09/15/2022 10:30 AM MUSIC COORDINATOR Narrative [facility] - 09/15/2022 9:47 PM MUSIC COORDINATOR Authorized Fact Sheets about this test for providers and patients are available at: https://www.fda.gov/medical-devices/wxuprpjxz-ioxnoguqdx-ohpalfm-devices/emergen -us e-authorizations Tashi Fuller MD MICROBIOLOGY - GENERAL ORDERAB LES Final Result [facility] [address] [facility] [place] [address], documented in this encounter Visit Diagnoses Diagnosis Encounter for screening for COVID-19 documented in this encounter Additional Health Concerns Infection Onset Date Last Indicated Resolved Time COVID - 19 08/11/2022 10/27/2022 11/06/2022 12:1 6 AM CDT documented as of this encounter Care Teams Women'S Health Care Nurse Practitioner Relationship Specialty Start Date End Date Tashi Fuller MD [address] [place] [address] [address] [place] [address] PCP - General Family Medicine 04/13/22 07/04/23 Jeremias Dillon MD [address] [place] [address] PCP - General Internal Medicine 07/05/23 Jeremias Dillon MD [address] [place] [address] Internal Medicine 07/08/21 documented as of this encounter
--- OUTSIDE RECORDS SUMMARY | 2024-10-24 09:00 | XMS_ITS | Encounter Summary ---
Author Organization [facility] Address [address] [place] [address] Phone Care Team Providers Care Pick Up Worker Name Role Phone Provider, Unknown Primary Care Provider Unavaila ble Jeremias Dillon MD Unavailable [phone] Tashi Fuller MD Primary Care Provider [phone] Jeremias Dillon MD Primary Care Provider [phone] Encounter Details Date Type Department Care Team (Late st Contact Info) Description 01/27/[address] [facility] Laboratory Services 1 [place] [phone] Tashi Fuller MD [address] [place] [address] [facility] [address] [place] [address] Encounter for screening for COVID-19 [...] [facility]ment [facility] 1 [place] [phone] Jeremias Dillon MD [address] [place] [address] documented as of this encounter Procedures Procedure Name Priority Date/Time Associated Diagnosis Comments SARS-COV-2 BY MOLECULAR Routine 01/27/2022 7:23 AM CDT Encounter for screening for COVID-19 documented in this encounter Results * SARS-COV-2 BY MOLECULAR (01/27/2022 7:23 AM CDT) SARSCOV2 NOT DETECTED (Referen ce Range for this test is Not Detected ) [facility] THERMOFISHER FAST DX 01/28/2022 8:31 AM CDT [facility] Comment:This test was perfor med by a RT-PCR method. Other Non-Phlebotomy Collection / Unknown 01/27/2022 7:23 AM CDT 01/27/2022 10:10 AM CDT Narrative [facility] - 01/28/2022 8:31 AM CDT Authorized Fact Sheets about this test for providers and patients are available at: https://www.fda.gov/medical-devices/mntgwyeqz-ytlnjbnwaj-vmiauui-devices/emergen -us e-authorizations us Tashi Fuller MD MICROBIOLOGY - GENERAL ORDERAB LES Final Result [facility] [address] [place] [address], documented in this encounter Visit Diagnoses Diagnosis Encounter for screening for COVID-19 documented in this encounter Additional Health Concerns Infection Onset Date Last Indicated Resolved Time COVID - 19 12/16/2021 06/23/2022 07/03/2022 12:1 6 AM MUSEUM ATTENDANT COVID - 19 08/11/2022 10/27/2022 11/06/2022 12:1 6 AM CDT documented as of this encounter Care Teams Pick Up Worker Relationship Specialty Start Date End Date Provider, Unknown UNKNOWN PCP - General 07/08/21 04/12/22 Tashi Fuller MD [address] [facility] [address] [place] [address] PCP - General Family Medicine 04/13/22 07/04/23 Jeremias Dillon MD [address] [facility] [address] [place] [address] PCP - General Internal Medicine 07/05/23 Jeremias Dillon MD [address] [facility] [address] [place] [address] Internal Medicine 07/08/21 documented as of this encounter
--- OUTSIDE RECORDS SUMMARY | 2024-10-24 09:00 | XMS_ITS | Encounter Summary ---
Author Organization [facility] Address [address] [place] [address] Phone Care Team Providers Care Bus Van Driver Name Role Phone Provider, Unknown Primary Care Provider Unavaila ble Jeremias Dillon MD Unavailable [phone] Tashi Fuller MD Primary Care Provider [phone] Jeremias Dillon MD Primary Care Provider [phone] Encounter Details Date Type Department Care Team (Late st Contact Info) Description 02/03/2022 Lab Requisition [facility] Laboratory Services 1 [place] [phone] Tashi Fuller MD [address] [place] [address] [facility] [address] [place] [address] Encounter for screening for COVID-19 [...] [facility] M[facility] 1 [place] [phone] Jeremias Dillon MD [address] [place] [address] documented as of this encounter Procedures Procedure Name Priority Date/Time Associated Diagnosis Comments SARS-COV-2 BY MOLECULAR Routine 02/03/2022 7:21 AM CDT Encounter for screening for COVID-19 documented in this encounter Results * SARS-COV-2 BY MOLECULAR (02/03/2022 7:21 AM CDT) SARSCOV2 NOT DETECTED (Referen ce Range for this test is Not Detected ) [facility] THERMOFISHER FAST DX 02/03/2022 10:13 PM CDT [facility] Comment:This test was perfor med by a RT-PCR method. Other Non-Phlebotomy Collection / Unknown 02/03/2022 7:21 AM CDT 02/03/2022 9:20 AM CDT Narrative [facility] - 02/03/2022 10:13 PM CDT Authorized Fact Sheets about this test for providers and patients are available at: https://www.fda.gov/medical-devices/kgbfyvvxc-tfqzovsvvb-fttshzw-devices/emergen -us e-authorizations us Tashi Fuller MD MICROBIOLOGY - GENERAL ORDERAB LES Final Result [facility] [address] [place] [address], documented in this encounter Visit Diagnoses Diagnosis Encounter for screening for COVID-19 documented in this encounter Additional Health Concerns Infection Onset Date Last Indicated Resolved Time COVID - 19 12/16/2021 06/23/2022 07/03/2022 12:1 6 AM MEDICAL APPLIANCE MAKER COVID - 19 08/11/2022 10/27/2022 11/06/2022 12:1 6 AM CDT documented as of this encounter Care Teams Bus Van Driver Relationship Specialty Start Date End Date Provider, Unknown UNKNOWN PCP - General 07/08/21 04/12/22 Tashi Fuller MD [address] [facility] [address] [place] [place] [address] PCP - General Family Medicine 04/13/22 07/04/23 Jeremias Dillon MD [address] [facility] 160 [place] [address] PCP - General Internal Medicine 07/05/23 Jeremias Dillon MD [address] [facility] [address] [place] [address] Internal Medicine 07/08/21 documented as of this encounter
--- OUTSIDE RECORDS SUMMARY | 2024-10-24 09:00 | XMS_ITS | Encounter Summary ---
Author Organization [facility] Address [address] [place] [address] Phone Care Team Providers Care Senior Java Software Developer Name Role Phone Provider, Unknown Primary Care Provider Unavaila ble Jeremias Dillon MD Unavailable [phone] Tashi Fuller MD Primary Care Provider [phone] Jeremias Dillon MD Primary Care Provider [phone] Encounter Details Date Type Department Care Team (Late st Contact Info) Description 08/26/2021 Lab Requisition [facility] Laboratory Services 1 [place] [phone] Tashi Fuller MD [address] [place] [address] [facility] 210 [place] [address] Social History Tobacco Use Types Packs/Day Years [...] Info) Description 11/15/2024 12:00 PM CDT [facility] 1 [place] [phone] Jeremias Dillon MD [address] [place] [address] documented as of this encounter Procedures Procedure Name Priority Date/Time Associated Diagnosis Comments SARS-COV-2 BY MOLECULAR Routine 08/26/2021 8:32 AM FUEL EFFICIENT AIRCRAFT DESIGNER documented in this encounter Results * (ABNORMAL) SARS-COV-2 BY MOLECULAR (08/26/2021 8:32 AM FUEL EFFICIENT AIRCRAFT DESIGNER) SARSCOV2 DETECTED( A) (Referenc e Range for this test is Not Detected) [facility] THERMOFISHER FAST DX 08/28/2021 6:12 AM FUEL EFFICIENT AIRCRAFT DESIGNER [facility] Comment:This test was perfor med by a RT-PCR method. Other Non-Phlebotomy Collection / Unknown 08/26/2021 8:32 AM FUEL EFFICIENT AIRCRAFT DESIGNER 08/26/2021 11:12 AM FUEL EFFICIENT AIRCRAFT DESIGNER Narrative [facility] - 08/28/2021 6:12 AM FUEL EFFICIENT AIRCRAFT DESIGNER Authorized Fact Sheets about this test for providers and patients are available at: https://www.fda.gov/medical-devices/zskpvkroi-emmlrfeelo-pfskxne-devices/emergen cy-us e-authorizations us Tashi Fuller MD MICROBIOLOGY - GENERAL ORDERAB LES Final Result Performing Organization Address City/State/[facility] Co de Phone Number [facility] [address] [place] [address], documented in this encounter Visit Diagnoses Not on filedocumented in this encounter Additional Health Concerns Infection Onset Date Last Indicated Resolved Time COVID - 19 Confirmed 08/19/2021 08/26/2021 022 12:16 AM FUEL EFFICIENT AIRCRAFT DESIGNER COVID - 19 08/26/2021 08/26/2021 08/28/2021 6:12 AM FUEL EFFICIENT AIRCRAFT DESIGNER COVID - 19 09/23/2021 09/23/2021 10/13/2021 12:1 6 AM FUEL EFFICIENT AIRCRAFT DESIGNER COVID - 19 12/02/2021 12/02/2021 12/02/2021 11:1 1 PM CDT COVID - 19 Confirmed 12/02/2021 12/02/2021 022 12:16 AM CDT COVID - 19 12/16/2021 06/23/2022 07/03/2022 12:1 6 AM FUEL EFFICIENT AIRCRAFT DESIGNER COVID - 19 08/11/2022 10/27/2022 11/06/2022 12:1 6 AM CDT documented as of this encounter Care Teams Senior Java Software Developer Relationship Specialty Start Date End Date Provider, Unknown UNKNOWN PCP - General 07/08/21 04/12/22 Tashi Fuller MD [address] [facility] [address] [place] [place] [address] PCP - General Family Medicine 04/13/22 07/04/23 Jeremias Dillon MD [address] [place] [address] PCP - General Internal Medicine 07/05/23 Jeremias Dillon MD [address] [place] [address] Internal Medicine 07/08/21 documented as of this encounter
--- OUTSIDE RECORDS SUMMARY | 2024-10-24 09:00 | XMS_ITS | Encounter Summary ---
Author Organization [facility] Address [address] [place] [address] Phone Care Team Providers Care Dowel Sticker Operator Name Role Phone Jeremias Dillon MD Primary Care Provider [phone] Provider, Unknown Primary Care Provider Unavaila ble Jeremias Dillon MD Unavailable Tashi Fuller MD Primary Care Provider [phone] Jeremias Dillon MD Primary Care Provider [phone] Encounter Details Date Type Department Care Team (Late st Contact Info) Description 05/27/2021 Lab Requisition [facility] Laboratory Services 1 [place] [address] Tashi Fuller MD [address] [place] [address] [address] Social History Tobacco Use Types Packs/Day Years [...] [facility] 1 [place] [address] Jeremias Dillon MD [address] [place] [address] documented as of this encounter Procedures Procedure Name Priority Date/Time Associated Diagnosis Comments SARS-COV-2 BY MOLECULAR Routine 05/27/2021 7:27 AM CDT documented in this encounter Results * SARS-COV-2 BY MOLECULAR (05/27/2021 7:27 AM CDT) SARSCOV2 NOT DETECTED (Referen ce Range for this test is Not Detected ) [facility] THERMOFISHER FAST DX 05/28/2021 10:46 AM CDT [facility] Comment:This test was perfor med by a RT-PCR method. Other Non-Phlebotomy Collection / Unknown 05/27/2021 7:27 AM CDT 05/27/2021 10:47 AM CDT Narrative [facility] - 05/28/2021 10:46 AM CDT Authorized Fact Sheets about this test for providers and patients are available at: https://www.fda.gov/medical-devices/iqolgfwdz-trmviwqgxj-mnxvise-devices/emergen -us e-authorizations us Tashi Fuller MD MICROBIOLOGY - GENERAL ORDERAB LES Final Result Performing Organization Address City/State/[facility] Co de Phone Number [facility] [address] [place] [address], documented in this encounter Visit Diagnoses Not on filedocumented in this encounter Additional Health Concerns Infection Onset Date Last Indicated Resolved Time COVID - 19 05/13/2021 08/19/2021 08/21/2021 7:20 PM NUTRITION COORDINATOR COVID - 19 07/08/2021 08/19/2021 08/21/2021 7:20 PM NUTRITION COORDINATOR COVID - 19 Confirmed 08/19/2021 08/26/2021 022 12:16 AM NUTRITION COORDINATOR COVID - 19 08/26/2021 08/26/202108/28/2021 6:12 AM NUTRITION COORDINATOR COVID - 19 09/23/2021 09/23/2021 10/13/2021 12:1 6 AM NUTRITION COORDINATOR COVID - 19 12/02/2021 12/02/2021 12/02/2021 11:1 1 PM CDT COVID - 19 Confirmed 12/02/2021 12/02/2021 022 12:16 AM CDT COVID - 19 12/16/2021 06/23/2022 07/03/2022 12:1 6 AM NUTRITION COORDINATOR COVID - 19 08/11/2022 10/27/2022 11/06/2022 12:1 6 AM CDT documented as of this encounter Care Teams Dowel Sticker Operator Relationship Specialty Start Date End Date Jeremias Dillon MD [address] [place] [address] PCP - General Internal Medicine 07/21/16 07/07/21 Provider, Unknown UNKNOWN PCP - General 07/08/21 04/12/22 Tashi Fuller MD 4 [facility] 210 [place] [address] PCP - General Family Medicine 04/13/22 07/04/23 Jeremias Dillon MD [address] [place] [address] PCP - General Internal Medicine 07/05/23 Jeremias Dillon MD [address] [place] [address] Internal Medicine 07/08/21 documented as of this encounter
--- OUTSIDE RECORDS SUMMARY | 2024-10-24 09:01 | XMS_ITS | Encounter Summary ---
Author Organization [facility] Address [address] [place] [address] Phone Care Team Providers Care Manufacturing Design Engineer Name Role Phone Provider, Unknown Primary Care Provider Unavaila ble Jeremias Dillon MD Unavailable [phone] Tashi Fuller MD Primary Care Provider [phone] Jeremias Dillon MD Primary Care Provider [phone] Encounter Details Date Type Department Care Team (Late st Contact Info) Description 03/03/2022 Lab Requisition [facility] Laboratory Services 1 [place] [phone] Tashi Fuller MD [address] [place] [address] [facility] 210 [place] [address] Encounter for screening for COVID-19 [...] Info) Description 11/15/2024 12:00 PM CDT [facility] 1 [place] [address] Jeremias Dillon MD [address] [place] [address] documented as of this encounter Procedures Procedure Name Priority Date/Time Associated Diagnosis Comments SARS-COV-2 BY MOLECULAR Routine 03/03/2022 7:16 AM CDT Encounter for screening for COVID-19 documented in this encounter Results * SARS-COV-2 BY MOLECULAR (03/03/2022 7:16 AM CDT) SARSCOV2 NOT DETECTED (Referen ce Range for this test is Not Detected ) [facility] THERMOFISHER FAST DX 03/04/2022 7:37 AM CDT [facility] Comment:This test was perfor med by a RT-PCR method. Other Non-Phlebotomy Collection / Unknown 03/03/2022 7:16 AM CDT 03/03/2022 12:04 PM CDT Narrative [facility] - 03/04/2022 7:37 AM CDT Authorized Fact Sheets about this test for providers and patients are available at: https://www.fda.gov/medical-devices/vgvtlpsxk-tgkdrtrjxa-acvwpig-devices/emergen -us e-authorizations us Tashi Fuller MD MICROBIOLOGY - GENERAL ORDERAB LES Final Result [facility] [address] [place] [address], documented in this encounter Visit Diagnoses Diagnosis Encounter for screening for COVID-19 documented in this encounter Additional Health Concerns Infection Onset Date Last Indicated Resolved Time COVID - 19 12/16/2021 06/23/2022 07/03/2022 12:1 6 AM 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 COVID - 19 08/11/2022 10/27/2022 11/06/2022 12:1 6 AM CDT documented as of this encounter Care Teams Manufacturing Design Engineer Relationship Specialty Start Date End Date Provider, Unknown UNKNOWN PCP - General 07/08/21 04/12/22 Tashi Fuller MD [address] [facility] [address] [place] [address] PCP - General Family Medicine 04/13/22 07/04/23 Jeremias Dillon MD [address] [facility] [address] [place] [address] PCP - General Internal Medicine 07/05/23 Jeremias Dillon MD [address] [facility] [address] [place] [address] Internal Medicine 07/08/21 documented as of this encounter
--- OUTSIDE RECORDS SUMMARY | 2024-10-24 09:01 | XMS_ITS | Encounter Summary ---
Author Organization [facility] Address [address] [place] [address] Phone Care Team Providers Care Associate Professor Of Literacy Name Role Phone Provider, Unknown Primary Care Provider Unavaila ble Jeremias Dillon MD Unavailable [phone] Tashi Fuller MD Primary Care Provider [phone] Jeremias Dillon MD Primary Care Provider [phone] Encounter Details Date Type Department Care Team (Late st Contact Info) Description 02/10/2022 Lab Requisition [facility] Laboratory Services 1 [place] [phone] Tashi Fuller MD [address] [place] [address] [facility] [address] [place] [address] Encounter for screening for COVID-19 [...] [facility]ment [facility] 1 [place] [address] Jeremias Dillon MD [address] [place] [address] documented as of this encounter Procedures Procedure Name Priority Date/Time Associated Diagnosis Comments SARS-COV-2 BY MOLECULAR Routine 02/10/2022 7:21 AM CDT Encounter for screening for COVID-19 documented in this encounter Results * SARS-COV-2 BY MOLECULAR (02/10/2022 7:21 AM CDT) SARSCOV2 NOT DETECTED (Referen ce Range for this test is Not Detected ) [facility] THERMOFISHER FAST DX 02/10/2022 11:45 PM CDT [facility] Comment:This test was perfor med by a RT-PCR method. Other Non-Phlebotomy Collection / Unknown 02/10/2022 7:21 AM CDT 02/10/2022 9:40 AM CDT Narrative [facility] - 02/10/2022 11:45 PM CDT Authorized Fact Sheets about this test for providers and patients are available at: https://www.fda.gov/medical-devices/msozxyqdh-vafyyizfhw-vujkowm-devices/emergen -us e-authorizations us Tashi Fuller MD MICROBIOLOGY - GENERAL ORDERAB LES Final Result [facility] [address] [place] [address], documented in this encounter Visit Diagnoses Diagnosis Encounter for screening for COVID-19 documented in this encounter Additional Health Concerns Infection Onset Date Last Indicated Resolved Time COVID - 19 12/16/2021 06/23/2022 07/03/2022 12:1 6 AM 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 COVID - 19 08/11/2022 10/27/2022 11/06/2022 12:1 6 AM CDT documented as of this encounter Care Teams Associate Professor Of Literacy Relationship Specialty Start Date End Date Provider, Unknown UNKNOWN PCP - General 07/08/21 04/12/22 Tashi Fuller MD [address] [facility] [address] [place] [address] PCP - General Family Medicine 04/13/22 07/04/23 Jeremias Dillon MD [address] [facility] 160 [place] [address] PCP - General Internal Medicine 07/05/23 Jeremias Dillon MD [address] [facility] [address] [place] [address] Internal Medicine 07/08/21 documented as of this encounter
--- OUTSIDE RECORDS SUMMARY | 2024-10-24 09:01 | XMS_ITS | Encounter Summary ---
Author Organization [facility] Address [address] [place] [address] Phone Care Team Providers Care Gymnastics Instructor Name Role Phone Provider, Unknown Primary Care Provider Unavaila ble Jeremias Dillon MD Unavailable [phone] Tashi Fuller MD Primary Care Provider [phone] Jeremias Dillon MD Primary Care Provider [phone] Encounter Details Date Type Department Care Team (Late st Contact Info) Description 03/17/2022 Lab Requisition [facility] Laboratory Services 1 [place] [phone] Tashi Fuller MD [address] [place] [address] [facility] [address] [place] [address] Encounter for screening for COVID-19 [...] [facility]ment [facility] 1 [place] [address] Jeremias Dillon MD [address] [place] [address] documented as of this encounter Procedures Procedure Name Priority Date/Time Associated Diagnosis Comments SARS-COV-2 BY MOLECULAR Routine 03/17/2022 7:04 AM CDT documented in this encounter Results * SARS-COV-2 BY MOLECULAR (03/17/2022 7:04 AM CDT) SARSCOV2 NOT DETECTED (Referen ce Range for this test is Not Detected ) [facility] THERMOFISHER FAST DX 03/18/2022 12:51 PM CDT [facility] Comment:This test was perfor med by a RT-PCR method. Other Non-Phlebotomy Collection / Unknown 03/17/2022 7:04 AM CDT 03/17/2022 1:25 PM CDT Narrative [facility] - 03/18/2022 12:51 PM CDT Authorized Fact Sheets about this test for providers and patients are available at: https://www.fda.gov/medical-devices/hjsjureec-esmzwbnxty-olhayqx-devices/emergen -us e-authorizations us Tashi Fuller MD MICROBIOLOGY - GENERAL ORDERAB LES Final Result [facility] [address] [place] [address], documented in this encounter Visit Diagnoses Diagnosis Encounter for screening for COVID-19 documented in this encounter Additional Health Concerns Infection Onset Date Last Indicated Resolved Time COVID - 19 12/16/2021 06/23/2022 07/03/2022 12:1 6 AM 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 COVID - 19 08/11/2022 10/27/2022 11/06/2022 12:1 6 AM CDT documented as of this encounter Care Teams Gymnastics Instructor Relationship Specialty Start Date End Date Provider, Unknown UNKNOWN PCP - General 07/08/21 04/12/22 Tashi Fuller MD [address] [facility] [address] [place] [address] PCP - General Family Medicine 04/13/22 07/04/23 Jeremias Dillon MD [address] [facility] 160 [place] [address] PCP - General Internal Medicine 07/05/23 Jeremias Dillon MD [address] [facility] [address] [place] [address] Internal Medicine 07/08/21 documented as of this encounter
--- OUTSIDE RECORDS SUMMARY | 2024-10-24 09:01 | XMS_ITS | Encounter Summary ---
Author Organization [facility] Address [address] [place] [address] Phone Care Team Providers Care Elementary Tutor Name Role Phone Provider, Unknown Primary Care Provider Unavaila ble Jeremias Dillon MD Unavailable [phone] Tashi Fuller MD Primary Care Provider [phone] Jeremias Dillon MD Primary Care Provider [phone] Encounter Details Date Type Department Care Team (Late st Contact Info) Description 02/24/2022 Lab Requisition [facility] Laboratory Services 1 [place] [phone] Tashi Fuller MD [address] [place] [address] [facility] 210 [place] [address] Encounter for screening for COVID-19 [...] Info) Description 11/15/2024 12:00 PM CDT [facility] 1 [place] [address] Jeremias Dillon MD [address] [place] [address] documented as of this encounter Procedures Procedure Name Priority Date/Time Associated Diagnosis Comments SARS-COV-2 BY MOLECULAR Routine 02/24/2022 6:54 AM CDT Encounter for screening for COVID-19 documented in this encounter Results * SARS-COV-2 BY MOLECULAR (02/24/2022 6:54 AM CDT) SARSCOV2 NOT DETECTED (Referen ce Range for this test is Not Detected ) [facility] THERMOFISHER FAST DX 02/25/2022 10:49 AM CDT [facility] Comment:This test was perfor med by a RT-PCR method. Other Non-Phlebotomy Collection / Unknown 02/24/2022 6:54 AM CDT 02/24/2022 11:24 AM CDT Narrative [facility] - 02/25/2022 10:49 AM CDT Authorized Fact Sheets about this test for providers and patients are available at: https://www.fda.gov/medical-devices/tzucbaaom-mfloipbqqm-xvtkesi-devices/emergen -us e-authorizations us Tashi Fuller MD MICROBIOLOGY - GENERAL ORDERAB LES Final Result [facility] [address] [place] [address], documented in this encounter Visit Diagnoses Diagnosis Encounter for screening for COVID-19 documented in this encounter Additional Health Concerns Infection Onset Date Last Indicated Resolved Time COVID - 19 12/16/2021 06/23/2022 07/03/2022 12:1 6 AM 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 COVID - 19 08/11/2022 10/27/2022 11/06/2022 12:1 6 AM CDT documented as of this encounter Care Teams Elementary Tutor Relationship Specialty Start Date End Date Provider, Unknown UNKNOWN PCP - General 07/08/21 04/12/22 Tashi Fuller MD 4 [facility] [address] [place] [address] PCP - General Family Medicine 04/13/22 07/04/23 Jeremias Dillon MD [address] [facility] 160 [place] [address] PCP - General Internal Medicine 07/05/23 Jeremias Dillon MD [address] [facility] [address] [place] [address] Internal Medicine 07/08/21 documented as of this encounter
--- OUTSIDE RECORDS SUMMARY | 2024-10-24 09:01 | XMS_ITS | Encounter Summary ---
Author Organization [facility] Address [address] [place] [address] Phone Care Team Providers Care Designer Writer Name Role Phone Jeremias Dillon MD Unavailable [phone] Tashi Fuller MD Primary Care Provider [phone] Jeremias Dillon MD Primary Care Provider [phone] Encounter Details Date Type Department Care Team (Late st Contact Info) Description 08/25/2022 Lab Requisition [facility] Laboratory Services 1 [place] [id number] Tashi Fuller MD [address] [place] [address] [address] Encounter for screening for COVID-19 [...] Info) Description 11/15/2024 12:00 PM CDT [facility] 1 [place] [address] Jeremias Dillon MD [address] [place] [address] documented as of this encounter Procedures Procedure Name Priority Date/Time Associated Diagnosis Comments SARS-COV-2 BY MOLECULAR Routine 08/25/2022 7:30 AM NOVELTY TWISTER OPERATOR Encounter for screening for COVID-19 documented in this encounter Results * SARS-COV-2 BY MOLECULAR (08/25/2022 7:30 AM NOVELTY TWISTER OPERATOR) SARSCOV2 NOT DETECTED (Referen ce Range for this test is Not Detected ) [facility] THERMOFISHER FAST DX 08/25/2022 10:53 PM NOVELTY TWISTER OPERATOR [facility] Comment:This test was perfor med by a RT-PCR method. Other Non-Phlebotomy Collection / Unknown 08/25/2022 7:30 AM NOVELTY TWISTER OPERATOR 08/25/2022 10:17 AM NOVELTY TWISTER OPERATOR Narrative [facility] - 08/25/2022 10:53 PM NOVELTY TWISTER OPERATOR Authorized Fact Sheets about this test for providers and patients are available at: https://www.fda.gov/medical-devices/qsixavpsz-cymamgqulr-eqiwzje-devices/emergen -us e-authorizations Tashi Fuller MD MICROBIOLOGY - GENERAL ORDERAB LES Final Result [facility] [address] [facility] [place] [address], documented in this encounter Visit Diagnoses Diagnosis Encounter for screening for COVID-19 documented in this encounter Additional Health Concerns Infection Onset Date Last Indicated Resolved Time COVID - 19 08/11/2022 10/27/2022 11/06/2022 12:1 6 AM CDT documented as of this encounter Care Teams Designer Writer Relationship Specialty Start Date End Date Tashi Fuller MD [address] [place] [address] [address] [place] [address] PCP - General Family Medicine 04/13/22 07/04/23 Jeremias Dillon MD [address] [place] [address] PCP - General Internal Medicine 07/05/23 Jeremias Dillon MD [address] [place] [address] Internal Medicine 07/08/21 documented as of this encounter
--- OUTSIDE RECORDS SUMMARY | 2024-10-24 09:01 | XMS_ITS | Encounter Summary ---
Author Organization [facility] Address [address] [place] [address] Phone Care Team Providers Care Water Pumping Station Engineer Name Role Phone Jeremias Dillon MD Unavailable [phone] Jeremias Dillon MD Primary Care Provider [phone] Encounter Details Date Type Department Care Team (Late Contact Info) Description 09/18/2024 Lab Requisition [facility] Laboratory Services 1 [place] [address] Tashi Fuller MD [address] [place] [address] [place] [address] Contact with and (suspected) exposure to unspecified communicable disease; Acute cough Social History Tobacco Use Types Packs/Day Years [...] CDT [facility]ointment [facility] [address] [place] [address] Jeremias Dillon MD [address] [place] [address] documented as of this encounter Procedures Procedure Name Priority Date/Time Associated Diagnosis Comments RSV,SARS-COV-2,INF LUENZA A&B BY PCR Routine 09/18/2024 6:45 AM VICTIM WITNESS ADMINISTRATOR Contact with and (suspected) exposure to unspecified communicable disease Acute cough documented in this encounter Results * RSV,SARS-COV-2,INFLUENZA A&B BY PCR (09/18/2024 6:45 AM VICTIM WITNESS ADMINISTRATOR) FLU A Negative Negative, Error 09/18/2024 11:05 AM VICTIM WITNESS ADMINISTRATOR [facility] FLU B Negative Negative 09/18/2024 11:05 AM VICTIM WITNESS ADMINISTRATOR [facility] RESP SYNC VIRUS Negative Negative 11:05 AM VICTIM WITNESS ADMINISTRATOR [facility] SARSCOV2 NOT DETECTED (Reference Range for this test is Not Detected) 09/18/2024 11:05 AM VICTIM WITNESS ADMINISTRATOR [facility] Comment:This test was perfor med by a Reverse Network Consultant PCR Method. Swab Non-Phlebotomy Collection / Unknown 09/18/2024 6:45 AM VICTIM WITNESS ADMINISTRATOR 09/18/2024 8:17 AM VICTIM WITNESS ADMINISTRATOR Tashi Fuller MD MICROBIOLOGY - GENERAL ORDERAB LES Final Result [facility] [place] [address] documented in this encounter Visit Diagnoses Diagnosis Contact with and (suspected) exposure to unspecified communicable disease Acute cough documented in this encounter Care Teams Water Pumping Station Engineer Relationship Specialty Start Date End Date Jeremias Dillon MD [address] [facility] [address] [place] [address] PCP - General Internal Medicine 07/05/23 Jeremias Dillon MD [address] [facility] [address] [place] [address] Internal Medicine 07/08/21 documented as of this encounter
--- OUTSIDE RECORDS SUMMARY | 2024-10-24 09:01 | XMS_ITS | Clinical Summary ---
Author Organization [facility] Address [address] [place] [address] Phone Care Team Providers Care Manager Database Name Role Phone DANIEL DAWSON, DYLON Meadows Unavailable [phone] Reason for Visit and Chief Complaint gynecologic annual exam - The Chief Complaint is: Annual exam Problems Includes: Problems addressed during this encounter and other active Problems All Visits Onset Date Resolved Date Provider Condition S tatus Osteopenia 07/19/2016 COREY NOLEN RN [facility] Active Last Documented On 6 10:34AM ; [facility] Dementia 07/19/2016 COREY NOLEN RN [facility] Active Last Documented On 6 10:34AM ; [facility] Intellectual Disabilities 07/19/2016 COREY VUONG RN [facility] Active Last Documented On 6 10:34AM ; [facility] Esophagitis Chronic Reflux 07/19/2016 COREY YANG RN [facility] Active Last Documented On 6 10:36AM ; [facility] Plan of Treatment - Weight loss diet - Last Documented On 07/25/2018 9:19AM ; [facility] - Clinical summary provided to patient - Last Documented On 07/25/2018 9:19AM ; [facility] PT TO CALL WITH ANY CHANGE IN STATUS ALL QUESTIONS ANSWERED WITH UNDERSTANDING VERBALIZED BY PT. - Last Documented On 07/25/2018 9:19AM ; [facility] Instructions to patient Instructions for patient : B reast Self Exam discussed and technique reviewed Last Documented On 8 9:05AM ; [facility] Instructed to call if excess osei bleeding or abdominal/pelvic pain Last Documented On 8 9:05AM ; [facility] Recommend diet and exercise at least 30 min three times per week Last Documented On 8 9:05AM ; [facility] Education and Decision Aids were provided during visit for: Patient Education: Daily joanne cium and vitamin D Last Documented On 8 9:05AM ; [facility] Assessments Includes: Assessments from this encounter Findings - NORMAL FEMALE EXAM - Last Documented On 07/25/2018 9:19AM ; [facility] Instructions Includes: Instructions from this encounter Instructions to patient Instructions for patient : B reast Self Exam discussed and technique reviewed Last Documented On 8 9:05AM ; [facility] Instructed to call if excess osei bleeding or abdominal/pelvic pain Last Documented On 8 9:05AM ; [facility] Recommend diet and exercise at least 30 min three times per week Last Documented On 8 9:05AM ; [facility] Education and Decision Aids were provided during visit for: Patient Education: Daily joanne cium and vitamin D Last Documented On 8 9:05AM ; [facility] Medical Equipment - Implanted Devices Includes: Current Devices No Medical Equipment Recorded Medications Includes: Medications discussed during this encounter and other current Medications Current Medications (continue as prescribed) Diflucan 200MG Oral Tablet 07/25/2018 Provider: Diagnosis: One tablet by mouth daily every month on the Last Documented On 8 9:03AM By CHRIS ORTA ; [facility] Claritin 10MG Oral Tablet 07/25/2018 Provider: Diagnosis: Last Documented On 8 9:04AM By CHRIS ORTA ; [facility] Namenda XR 28MG Oral Capsule Extended Release 24 Hour 07/25/2018 Provider: Diagnosis: Last Documented On 8 9:04AM By CHRIS ORTA ; [facility] PriLOSEC OTC 20MG Oral Tablet Delayed Release 07/25/20 18 Provider: Diagnosis: Last Documented On 8 9:04AM By CHRIS ORTA ; [facility] Sutton Nasal [place] 0.65% Solution 07/25/2018 Provider : Diagnosis: Last Documented On 8 9:04AM By CHRIS ORTA ; [facility] Oyst-Joanne-D 500 [id number] Oral Tablet 07/25/2018 Provider: Diagnosis: Last Documented On 8 9:05AM By CHRIS ORTA ; [facility] Aricept 10MG Oral Tablet 07/25/2018 Provider: Diagnosis: Last Documented On 8 9:05AM By CHRIS ORTA ; [facility] Tylenol 325MG Oral Capsule 07/25/2018 Provider: Diagnosis: Last Documented On 8 9:05AM By CHRIS ORTA ; [facility] Milk of Magnesia 7.75% Oral Suspension 07/25/2018 Pr ovider: Diagnosis: Last Documented On 8 9:05AM By CHRIS ORTA ; [facility] Robafen DM Clear 100-10MG/5ML Oral Syrup 07/25/2018 Provider: Diagnosis: Last Documented On 8 9:06AM By CHRIS ORTA ; [facility] Clotrimazole 1% External Cream 07/25/2018 Provider: Diagnosis: Last Documented On 8 9:06AM By CHRIS ORTA ; [facility] Triamcinolone Acetonide 0.1% External Cream 07/25/2018 Provider: Diagnosis: Last Documented On 8 9:07AM By CHRIS ORTA ; [facility] GNP Triple Antibiotic External Ointment 07/25/2018 P rovider: Diagnosis: Last Documented On 8 9:07AM By CHRIS ORTA ; [facility] Past Medications on file Nystatin [id number] UNIT/GM Cream 07/19/2016 - 08/02/2016 Provider: COREY BALL Diagnosis: Candidiasis of s kin and nail as directed APPLY 3 times da tung to affected area Last Documented On 6 10:55AM By COREY REEVES-QUINN ; [facility] Medications Administered Includes: Administered Medications from this encounter No Administered Medications Recorded Vital Signs Includes: Vital Signs from this encounter Vital Name 07/25/2018 08:58A Blood Pressure Sitting L 144/88 BP Cuff Size Large Height (in) 59 Weight (lb) 172.2 Body Mass Index (kg/m2) 34.8 Body Surface Area (m2) 1.7 Last Documented: On 07/25/2018 9:10AM ; [facility] Results Includes: Results discussed during this encounter No Results Recorded For Specified Dates History of Present Illness Includes: History of Present Illness from this encounter HPI BRYAN WHEELER is a 67 year old female. - Medication list reviewed. Social History Description Last Updated Alcohol use: 2 drinks or less per day no ne 07/25/2018 Last Documented On 8 9:19AM ; [facility] Non-smoker 07/25/2018 Last Documented On 8 9:19AM ; [facility] Activities 07/25/2018 Last Documented On 8 9:19AM ; [facility] Denied sexual activity 07/25/2018 Last Documented On 8 9:19AM ; [facility] Education history 07/25/2018 Last Documented On 8 9:19AM ; [facility] Not a smoker 07/25/2018 Last Documented On 8 9:19AM ; [facility] Not sexually active 07/25/2018 Last Documented On 8 9:19AM ; [facility] Personal history 07/25/2018 Last Documented On 8 9:19AM ; [facility] Single 07/25/2018 Last Documented On 8 9:19AM ; [facility] Smoking status : Former smoker 8 Last Documented On 8 9:19AM ; [facility] Procedures and Surgical History Includes: Procedures from this encounter Procedures Code Diagnosis Performing Provider Service L ocation Service Date education and instructions Last Documented On 8 9:05AM ; [facility] explanation of plan Last Documented On 8 9:05AM ; [facility] junk-free diet including sodas Last Documented On 8 9:05AM ; [facility] medical regimen review Last Documented On 8 9:05AM ; [facility] education about contraception performed Last Documented On 8 9:05AM ; [facility] Urged Exercise and Diet , exercise at le ast 30 min three times per week Last Documented On 8 9:05AM ; [facility] Clinical summary provided to patient Last Documented On 8 9:05AM ; [facility] Surgical History Last Updated History of total abdominal h ysterectomy BSO 1992 unknown benign pathology 07/19/2016 Last Documented On 8 8:56AM ; [facility] History of hysterectomy 199207/19/2016 Last Documented On 8 8:56AM ; [facility] History of cholecystectomy 200307/19/20 16 Last Documented On 8 8:56AM ; [facility] Medical History Includes: Medical History addressed during this encounter Description Last Updated 0 07/25/2018 Last Documented On 8 9:19AM ; [facility] Patient recently had a dexa scan 016 07/25/2018 Last Documented On 8 9:19AM ; [facility] History of chronic reflux esophagitis Last Documented On 8 8:56AM ; [facility] A colonoscopy was performed 12/02/1512/2015 Last Documented On 8 8:56AM ; [facility] Last mammogram date: 12/15/2015 6 Last Documented On 8 8:56AM ; [facility] LMP: 199207/19/2016 Last Documented On 8 8:56AM ; [facility] Result: normal 07/19/2016 Last Documented On 8 8:56AM ; [facility] Family History Includes: Family History addressed during this encounter Description Last Updated Family history unchanged unknown 016 Last Documented On 8 8:56AM ; [facility] Review of Systems Includes: Review of Systems from this encounter Systemic: General overall feeling. Feeling fine, not tiring easily, no unusual bleeding, and no recent weight change. No pain. Head: No headache. Neck: No neck pain and no swollen glands in the neck. Eyes: No vision problems. Breasts: No breast symptoms, no breast lump, no nipple discharge, and no pain in breast. Cardiovascular: No chest pain or discomfort, no palpitations, no intermittent leg claudication, and no varicosities. Pulmonary: No pulmonary symptoms, no dyspnea, no rapid breathing, no cough, and no wheezing. Gastrointestinal: No nausea, no vomiting, no abdominal pain, no diarrhea, and no constipation. Genitourinary: No change in urinary frequency and no incomplete emptying of bladder. No urinary loss of control and no dysuria. No genital lesion and no menorrhagia. No dysmenorrhea. No vaginal discharge. Endocrine: No polydipsia and no temperature intolerance. Hematologic: No blood clotting problems. Musculoskeletal: No back pain, no muscle aches, and no localized joint pain. Neurological: No dizziness. Psychological: No anxiety, no depression, no sleep disturbances, and a desire to continue living. Skin: No pruritus. No skin lesions and no rash. Allergic and Immunologic: No hay fever. Mental Status Includes: Mental Status from this encounter Description Oriented to time, place, and person No anxiety A desire to continue living Functional Status Includes: Functional Status from this encounter No Functional Status Recorded Physical Exam Includes: Physical Exam from this encounter Allergies Includes: Active Allergies No Known Allergies Encounters Encounter Provider Location Date Check-In Time Check-Out Time Diagnosis ANNUAL SENIOR TAX ACCOUNTANT EXAM COREY NOLEN RN NP [facility] GEOMORPHOLOGIST 07/25/20 18 8:49AM 9:23AM Normal Female Exam Insurance Includes: Active Insurance Policies Plan Name Member ID Group # Subscriber Relationship Effect osei Dates 1 - [place] B [place] [id number] BRYAN Han 2 - [facility] MEDICARE [facility] NON [facility] [id number] BRYAN Han Clinical Notes Includes: Clinical Notes from this encounter No Clinical Notes Recorded
--- OUTSIDE RECORDS SUMMARY | 2024-10-24 09:01 | XMS_ITS | Encounter Summary ---
Author Organization [facility] Address [address] [place] [address] Phone Care Team Providers Care Communication Studies Professor Name Role Phone Provider, Unknown Primary Care Provider Unavaila ble Jeremias Dillon MD Unavailable [phone] Tashi Fuller MD Primary Care Provider [phone] Jeremias Dillon MD Primary Care Provider [phone] Encounter Details Date Type Department Care Team (Late st Contact Info) Description 03/24/2022 Lab Requisition [facility] Laboratory Services [address] [place] [phone] Tashi Fuller MD [address] [place] [address] [facility] [address] [place] [address] Encounter for screening for COVID-19 [...] Info) Description 11/15/2024 12:00 PM CDT [facility]ment [facility] [address] [place] [phone] Jeremias Dillon MD [address] [place] [address] documented as of this encounter Procedures Procedure Name Priority Date/Time Associated Diagnosis Comments SARS-COV-2 BY MOLECULAR Routine 03/24/2022 7:15 AM CDT Encounter for screening for COVID-19 documented in this encounter Results * SARS-COV-2 BY MOLECULAR (03/24/2022 7:15 AM CDT) SARSCOV2 NOT DETECTED (Referen ce Range for this test is Not Detected ) [facility] THERMOFISHER FAST DX 03/25/2022 10:30 AM CDT [facility] Comment:This test was perfor med by a RT-PCR method. Other Non-Phlebotomy Collection / Unknown 03/24/2022 7:15 AM CDT 03/24/2022 12:23 PM CDT Narrative [facility] - 03/25/2022 10:30 AM CDT Authorized Fact Sheets about this test for providers and patients are available at: https://www.fda.gov/medical-devices/cmzfdbbej-vyypielzjg-unfzycl-devices/emergen -us e-authorizations us Tashi Fuller MD MICROBIOLOGY - GENERAL ORDERAB LES Final Result [facility] [address] [place] [address], documented in this encounter Visit Diagnoses Diagnosis Encounter for screening for COVID-19 documented in this encounter Additional Health Concerns Infection Onset Date Last Indicated Resolved Time COVID - 19 12/16/2021 06/23/2022 07/03/2022 12:1 6 AM 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 COVID - 19 08/11/2022 10/27/2022 11/06/2022 12:1 6 AM CDT documented as of this encounter Care Teams Communication Studies Professor Relationship Specialty Start Date End Date Provider, Unknown UNKNOWN PCP - General 07/08/21 04/12/22 Tashi Fuller MD [address] [facility] [address] [place] [address] PCP - General Family Medicine 04/13/22 07/04/23 Jeremias Dillon MD [address] [facility] [address] [place] [address] PCP - General Internal Medicine 07/05/23 Jeremias Dillon MD [address] [facility] [address] [place] [address] Internal Medicine 07/08/21 documented as of this encounter
--- OUTSIDE RECORDS SUMMARY | 2024-10-24 09:01 | XMS_ITS | Encounter Summary ---
Author Organization [facility] Address [address] [place] [address] Phone Care Team Providers Care System Software Developer Name Role Phone Jeremias Dillon MD Unavailable [phone] Tashi Fuller MD Primary Care Provider [phone] Jeremias Dillon MD Primary Care Provider [phone] Encounter Details Date Type Department Care Team (Late st Contact Info) Description 10/27/2022 Lab Requisition [facility] Laboratory Services 1 [place] [phone] Tashi Fuller MD [address] [place] [address] [address] Encounter for screening for COVID-19 [...] [facility] 1 [place] [address] Jeremias Dillon MD [address] [place] [address] documented as of this encounter Procedures Procedure Name Priority Date/Time Associated Diagnosis Comments SARS-COV-2 BY MOLECULAR Routine 10/27/2022 7:35 AM CDT Encounter for screening for COVID-19 documented in this encounter Results * SARS-COV-2 BY MOLECULAR (10/27/2022 7:35 AM CDT) SARSCOV2 NOT DETECTED (Referen ce Range for this test is Not Detected ) [facility] THERMOFISHER FAST DX 10/27/2022 5:01 PM CDT [facility] Comment:This test was perfor med by a RT-PCR method. Other Non-Phlebotomy Collection / Unknown 10/27/2022 7:35 AM CDT 10/27/2022 9:50 AM CDT Narrative [facility] - 10/27/2022 5:01 PM CDT Authorized Fact Sheets about this test for providers and patients are available at: https://www.fda.gov/medical-devices/rvvqubqpg-ahkgsayklb-jdrvjgb-devices/emergen -us e-authorizations us Tashi Fuller MD MICROBIOLOGY - GENERAL ORDERAB LES Final Result [facility] [address] [place] [address], documented in this encounter Visit Diagnoses Diagnosis Encounter for screening for COVID-19 documented in this encounter Additional Health Concerns Infection Onset Date Last Indicated Resolved Time COVID - 19 08/11/2022 10/27/2022 11/06/2022 12:1 6 AM CDT documented as of this encounter Care Teams System Software Developer Relationship Specialty Start Date End Date Tashi Fuller MD [address] [place] [address] [address] [place] [address] PCP - General Family Medicine 04/13/22 07/04/23 Jeremias Dillon MD [address] [place] [address] PCP - General Internal Medicine 07/05/23 Jeremias Dillon MD [address] [facility] [address] [place] [address] Internal Medicine 07/08/21 documented as of this encounter
--- OUTSIDE RECORDS SUMMARY | 2024-10-24 09:01 | XMS_ITS | Encounter Summary ---
Author Organization [facility] Address [address] [place] [address] Phone Care Team Providers Care Adjuster And Inspector Name Role Phone Provider, Unknown Primary Care Provider Unavaila ble Jeremias Dillon MD Unavailable [phone] Tashi Fuller MD Primary Care Provider [phone] Jeremias Dillon MD Primary Care Provider [phone] Encounter Details Date Type Department Care Team (Late st Contact Info) Description 03/31/2022 Lab Requisition [facility] 1 [place] [phone] Tashi Fuller MD [address] [place] [address] [facility] [address] [place] [address] Encounter for screening for COVID-19 [...] [facility] 1 [place] [address] Jeremias Dillon MD [address] [place] [address] documented as of this encounter Procedures Procedure Name Priority Date/Time Associated Diagnosis Comments SARS-COV-2 BY MOLECULAR Routine 03/31/2022 7:21 AM CDT documented in this encounter Results * SARS-COV-2 BY MOLECULAR (03/31/2022 7:21 AM CDT) SARSCOV2 NOT DETECTED (Referen ce Range for this test is Not Detected ) [facility] THERMOFISHER FAST DX 04/01/2022 11:58 AM CDT [facility] Comment:This test was perfor med by a RT-PCR method. Other Non-Phlebotomy Collection / Unknown 03/31/2022 7:21 AM CDT 03/31/2022 1:16 PM CDT Narrative [facility] - 04/01/2022 11:58 AM CDT Authorized Fact Sheets about this test for providers and patients are available at: https://www.fda.gov/medical-devices/kvfoothyr-gmdzqeezyu-pgahgmp-devices/emergen cy-us e-authorizations us Tashi Fuller MD MICROBIOLOGY - GENERAL ORDERAB LES Final Result [facility] [address] [place] [address], documented in this encounter Visit Diagnoses Diagnosis Encounter for screening for COVID-19 documented in this encounter Additional Health Concerns Infection Onset Date Last Indicated Resolved Time COVID - 19 12/16/2021 06/23/2022 07/03/2022 12:1 6 AM 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 COVID - 19 08/11/2022 10/27/2022 11/06/2022 12:1 6 AM CDT documented as of this encounter Care Teams Adjuster And Inspector Relationship Specialty Start Date End Date Provider, Unknown UNKNOWN PCP - General 07/08/21 04/12/22 Tashi Fuller MD [address] [place] [address] PCP - General Family Medicine 04/13/22 07/04/23 Jeremias Dillon MD [address] [facility] [address] [place] [address] PCP - General Internal Medicine 07/05/23 Jeremias Dillon MD [address] [facility] [address] [place] [address] Internal Medicine 07/08/21 documented as of this encounter
--- OUTSIDE RECORDS SUMMARY | 2024-10-24 09:01 | XMS_ITS | Encounter Summary ---
Author Organization [facility] Address [address] [place] [address] Phone Care Team Providers Care Tail Ripper Name Role Phone Jeremias Dillon MD Unavailable [phone] Tashi Fuller MD Primary Care Provider [phone] Jeremias Dillon MD Primary Care Provider [phone] Encounter Details Date Type Department Care Team (Late st Contact Info) Description 10/20/2022 Lab Requisition [facility] Services 1 [place] [phone] Tashi Fuller MD [address] [place] [address] [address] Encounter for screening for COVID-19 [...] [facility]ment [facility] 1 [place] [address] Jeremias Dillon MD [address] [place] [address] documented as of this encounter Procedures Procedure Name Priority Date/Time Associated Diagnosis Comments SARS-COV-2 BY MOLECULAR Routine 10/20/2022 7:21 AM FORGING MACHINE OPERATOR Encounter for screening for COVID-19 documented in this encounter Results * SARS-COV-2 BY MOLECULAR (10/20/2022 7:21 AM FORGING MACHINE OPERATOR) SARSCOV2 NOT DETECTED (Referen ce Range for this test is Not Detected ) [facility] FA[facility] DX 10/20/2022 7:37 PM FORGING MACHINE OPERATOR [facility] Comment:This test was perfor med by a RT-PCR method. Other Non-Phlebotomy Collection / Unknown 10/20/2022 7:21 AM FORGING MACHINE OPERATOR 10/20/2022 9:59 AM FORGING MACHINE OPERATOR Narrative [facility] - 10/20/2022 7:37 PM FORGING MACHINE OPERATOR Authorized Fact Sheets about this test for providers and patients are available at: https://www.fda.gov/medical-devices/ipfpmilgt-msqfjiawyd-unlgyig-devices/emergen -us e-authorizations Tashi Fuller MD MICROBIOLOGY - GENERAL ORDERAB LES Final Result [facility] [address] [facility] [place] [address], documented in this encounter Visit Diagnoses Diagnosis Encounter for screening for COVID-19 documented in this encounter Additional Health Concerns Infection Onset Date Last Indicated Resolved Time COVID - 19 08/11/2022 10/27/2022 11/06/2022 12:1 6 AM CDT documented as of this encounter Care Teams Tail Ripper Relationship Specialty Start Date End Date Tashi Fuller MD [address] [place] [address] [address] [place] [address] PCP - General Family Medicine 04/13/22 07/04/23 Jeremias Dillon MD [address] [place] [address] PCP - General Internal Medicine 07/05/23 Jeremias Dillon MD [address] [place] [address] Internal Medicine 07/08/21 documented as of this encounter
--- OUTSIDE RECORDS SUMMARY | 2024-10-24 09:01 | XMS_ITS | Clinical Summary ---
Author Organization [facility] Address [address] [place] [address] Care Team Providers Care Fireworks Inspector Name Role Phone Jeremias Dillon MD Unavailable [phone] Jeremias Dillon MD Primary Care Provider [phone] Allergies No known active allergies Medications fluconazole (DIFLUCAN) 200 MG Tablet Take 200 mg by mouth daily. Active loratadine (CLARITIN) 10 MG Tablet Take 10 mg by mouth daily. Active memantine ER (NAMENDA XR) 28 MG CAPSULE SR 24 HR Take 28 mg by mouth daily. Active Omeprazole 20 MG Tablet Delayed Response Take 20 mg by mouth daily. Active sodium chloride (DEEP SEA NASAL SPRAY) 0.65 % Solution 1 [place] by Nasal route as needed. Active calcium-vitamin D (OYST-PRASHANT/VITAM IN D) 500-200 MG-UNIT Tablet Take 1 Tab by mouth 3 times daily. Active donepezil (ARICEPT) 10 MG Tablet Take 10 mg by mouth nightly. Active HYDROcodone-jaden taminophen (NORCO) 5-325 MG Tablet Take 1-2 Tabs by mouth every 4 hours as needed for Moderate or more severe pain. 20 Tab 9 Active azithromycin (ZITHROMAX Z-SHAHLA) 250 MG TabletIndicatio ns:Bronchitis 2 tab(s) daily for 1 day, then 1 tab(s) daily for days 2-5. 6 Tab 0 Active methylPREDNISol one (MEDROL) 4 MG Tablet Therapy PackIndications :Bronchitis Use as per instructions on package. 21 Tab 0 Active albuterol (PROAIR HFA) 108 (90 Base) MCG/ACT Aerosol SolutionIndicat ions:Bronchitis take 2 Puffs by inhalation every 4 hours as needed for Wheezing or Cough. 1 Inhaler 0 Active predniSONE (DELTASONE) 20 MG Tablet Take 1 Tablet by mouth daily. 3 Tablet 4 Active Active Problems No known active problems Encounters Date Type Department Care Team Description 09/18/2024 [facility] 1 [place] [phone] Tashi Fuller MD Contact with and (suspected) exposure to unspecified communicable disease; Acute cough 08/10/2024 [facility] [address] [place] [address] Jeremias Dillon MD Visit for screening mammogram (Primary Dx) from Last 3 Months Immunizations Immunization Administration Dates Next Due Covid-19, Mrna, Lnp-s, Pf, 30 Mcg/0.3 Ml Dose (P fizer) 06/19/2021 TDAP Vaccine 06/08/2019 Social History Tobacco Use Types Packs/Day Years [...] on file Sexual Orientation Not on file Last Filed Vital Signs Vital Sign Reading Time Taken Comments Blood Pressure 169/74 12/05/2023 6:13 PM CDT Pulse 65 12/05/2023 7:30 PM CDT Temperature 35.9 C (96.7 F) 12/05/2023 6:13 PM CDT Respiratory Rate 18 12/05/2023 6:13 PM CDT Oxygen Saturation 98% 12/05/2023 7:30 PM CDT Inhaled Oxygen Concentration - - Weight 90.7 kg (200 lb) 12/05/2023 5:45 PM CDT Height 160 cm (5' 3 ) 12/05/2023 6:22 PM CDT Body Mass Index 35.43 12/05/2023 5:45 PM CDT Plan of Treatment Upcoming Encounters Date Type Department Care Team (Late st Contact Info) Description 11/15/2024 12:00 PM CDT Appointment [facility] Mammography [address] [place] [address] Jeremias Dillon MD [address] [place] [address] Health Maintenance Due Date Last Done Comments Hepatitis C Virus (HCV) Screening 1950 Colonoscopy 10/17/1995 Colorectal Cancer Screening 10/17/1995 Cologuard 2000 Immunochemical Fecal Occult Blood 2000 Zoster Immunization (1 of 2) 2000 Pneumococcal Immunization (50+ years) (2 of 2 - PCV) 10/30/2016 10/31/2015 Influenza Immunization (#1) 04/15/202405/16, 05/30/2018, 05/23/2017, Additional history exists SARS-COV-2 Immunization ( season) 2024 05/13/2022, 06/19/2021, 10/17/2020, Additional history exists Mammogram 09/21/2024 09/21/2023, 0901/2022, 11/18/2020 DEXA Bone Density 04/29/2025 04/29/2023, , 07/30/2016 Respiratory Syncytial Virus (RSV) Immunization (Adult) (1 - 1-dose 75+ series) 2025 Td Immunization Every 10 Years (Adults With 1 Tdap) 06/08/2029 06/08/2019 Pneumococcal Immunization Combined Discontinued 10/31/2015 DTaP/Tdap/Td Immunization Discontinued 06/08/2019 Hepatitis B Immunization Aged Out No longer eligible based on patient's age to complete this topic Meningococcal Immunization (ACWY) Aged Out No longer eligible based on patient's age to complete this topic Rotavirus Immunization Aged Out No lo nger eligible based on patient's age to complete this topic Procedures Procedure Name Priority Date/Time Associated Diagnosis Comments RSV,SARS-COV-2,INFLUE NZA A&B BY PCR Routine 09/18/2024 6:45 AM RN BONE MARROW TRANSPLANT Contact with and (suspected) exposure to unspecified communicable disease Acute cough [facility] SCREENING BILATERAL DIGITAL W CAD Routine 09/21/2023 9:41 AM RN BONE MARROW TRANSPLANT Screening mammogram, encounter for [facility] BONE DENSITOMETRY AXIAL SKELETON Routine 04/29/2023 10:28 AM CDT Screening for osteoporosis from Last 3 Months or Most Recently Relevant to Health Maintenance Results * RSV,SARS-COV-2,INFLUENZA A&B BY PCR (09/18/2024 6:45 AM RN BONE MARROW TRANSPLANT) FLU A Negative Negative, Error 09/18/2024 11:05 AM RN BONE MARROW TRANSPLANT [facility] FLU B Negative Negative 09/18/2024 11:05 AM RN BONE MARROW TRANSPLANT [facility] RESP SYNC VIRUS Negative Negative 11:05 AM RN BONE MARROW TRANSPLANT [facility] SARSCOV2 NOT DETECTED (Reference Range for this test is Not Detected) 09/18/2024 11:05 AM RN BONE MARROW TRANSPLANT [facility] Comment:This test was perfor med by a Reverse Pneumatic Hoist Operator PCR Method. Swab Non-Phlebotomy Collection / Unknown 09/18/2024 6:45 AM RN BONE MARROW TRANSPLANT 09/18/2024 8:17 AM RN BONE MARROW TRANSPLANT us Tashi Fuller MD MICROBIOLOGY - GENERAL ORDERAB LES Final Result [facility] [place] [address] * [facility] SCREENING BILATERAL DIGITAL W CAD (09/21/2023 9:41 AM RN BONE MARROW TRANSPLANT) Anatomical Region Laterality Modality breast Bilateral Mammography 09/21/2023 9:17 AM RN BONE MARROW TRANSPLANT Narrative 09/21/2023 2:30 PM RN BONE MARROW TRANSPLANT - [facility] SCREENING BILATERAL DIGITAL W CAD BILATERAL DIGITAL SCREENING MAMMOGRAM WITH CAD WITH MEDIOLATERAL OBLIQUE CRANIOCAUDAL: 09/21/2023 The study was acquired using digital technology and interpreted from soft copy. Current study was also evaluated with ICAD version 7.2. CLINICAL: Routine screening. Patient has no complaints. Patient is from a long term. Exam performed in a wheelchair. Patient was unable to fully cooperate with positioning or suspend respirations. COMPARISONS: Comparison is made to exams dated: 04/20/2022, 12/09/2020, and 11/18/2020 [facility]. BREAST TISSUE:There are scattered fibroglandular densities in both breasts. FINDINGS: The study is limited due to the patient's inability to fully cooperate with positioning. No significant masses, calcifications, or other findings are seen in either breast. There has been no significant interval change. IMPRESSION: BI-RAD 2 BENIGN The study is limited due to the patient's inability to fully cooperate with positioning. There is no mammographic evidence of malignancy. A 1 year screening mammogram is recommended. A letter will be sent to the patient with these results. The patient will be entered into a reminder system with a target due date of 1 year for her next screening exam. Electronically signed by: Laina jarrell/sivan:09/21/2023 11:17:08 Thermostatic Controls Supervisor(s): RT Jaspal(R)(M), [facility] letter sent: Normal Exam Reading location: [facility] BI-RADS: 2 Benign Procedure Note Laina Light MD - 09/21/2023 - [facility] SCREENING BILATERAL DIGITAL W CAD BILATERAL DIGITAL SCREENING MAMMOGRAM WITH CAD WITH MEDIOLATERAL OBLIQUE CRANIOCAUDAL: 09/21/2023 The study was acquired using digital technology and interpreted from soft copy. Current study was also evaluated with ICAD version 7.2. CLINICAL: Routine screening. Patient has no complaints. Patient is from a long term. Exam performed in a wheelchair. Patient was unable to fully cooperate with positioning or suspend respirations. COMPARISONS: Comparison is made to exams dated: 04/20/2022, 12/09/2020, and 11/18/2020 [facility]. BREAST TISSUE:There are scattered fibroglandular densities in both breasts. FINDINGS: The study is limited due to the patient's inability to fully cooperate with positioning. No significant masses, calcifications, or other findings are seen in either breast. There has been no significant interval change. IMPRESSION: BI-RAD 2 BENIGN The study is limited due to the patient's inability to fully cooperate with positioning. There is no mammographic evidence of malignancy. A 1 year screening mammogram is recommended. A letter will be sent to the patient with these results. The patient will be entered into a reminder system with a target due date of 1 year for her next screening exam. Electronically signed by: Laina jarrell/sivan:09/21/2023 11:17:08 Thermostatic Controls Supervisor(s): RT Jaspal(R)(M), [facility] letter sent: Normal Exam Reading location: [facility] BI-RADS: 2 Benign us Jeremias Dillon MD IMG MAMMO ORDERABLES Final Resu lt * [facility] BONE DENSITOMETRY AXIAL SKELETON (04/29/2023 10:28 AM CDT) Anatomical Region Laterality Modality BODY N/A Computed Radiogr aphy 04/29/2023 12:0 0 PM CDT Impressions 04/29/2023 12:03 PM CDT IMPRESSION: Normal bone density. REFERENCE: Bone mineral density: Normal (T-score above or = -1.0) Low bone mass (T-score between -1.0 and -2.5) replaces the previously used term osteopenia Osteoporosis (T-score = or below -2.5) Medical evaluation for secondary causes of low bone mineral density may be appropriate. FRAX is a World Health Organization validated fracture risk assessment tool that calculates a person's 10 year probability of a major osteoporosis related fracture and hip fracture. According to the National Osteoporosis Foundation guidelines, postmenopausal women and men age 50 or older with low bone mass and a 10 year probability of a major osteoporosis related fracture = or greater than 20% or a 10 year probability of a hip fracture = or greater than 3% should be considered for treatment. For further information, including treatment recommendations, please refer to the 2019 ISCD Official Positions (http://www.iscd.org) and the NOF's Clinician's Guide to Prevention and Treatment of Osteoporosis (http://www.nof.org/professionals/clinical-guidelines) Narrative 04/29/2023 12:03 PM CDT EXAM DESCRIPTION: [facility] BONE DENSITOMETRY AXIAL SKELETON REASON FOR STUDY: 72 y/o year old F with given history of: screening for osteoporosis Ic Engineer/Model: Dashwire (S/N [id number]) CLINICAL INFORMATION: Current height: 56 inches Maximum height: 56 inches Weight: 183 pounds Risk factors: None COMPARISON: 11/18/2020, 07/30/2016 FINDINGS: AP LUMBAR SPINE L1-L4: Total BMD is 1.258 g/cm2 T-score is 0.5 This is 9.5% change in comparison to prior exam which is statistically significant. LEFT HIP: Total BMD is 0.951 g/cm2 T-score is -0.4 This is 8.8% change in comparison to prior exam which is statistically significant. Femoral neck BMD is 0.930 g/cm2 T-score is -0.8 FRAX: 10 year risk for a major osteoporotic fracture is 12.2 %, 10 year risk for a hip fracture is 1.1 % THIS IS AN ELECTRONICALLY VERIFIED FINAL REPORT 04/29/2023 12:00 PM - Electronically signed by Wilfrid Farfan M.D. AG: PAU Report ID: [id number] Reading Location: [id number] Procedure Note Wilfrid Farfan MD - 04/29/2023 EXAM DESCRIPTION: [facility] BONE DENSITOMETRY AXIAL SKELETON REASON FOR STUDY: 72 y/o year old F with given history of: screening for osteoporosis Ic Engineer/Model: Dashwire (S/N [id number]) CLINICAL INFORMATION: Current height: 56 inches Maximum height: 56 inches Weight: 183 pounds Risk factors: None COMPARISON: 11/18/2020, 07/30/2016 FINDINGS: AP LUMBAR SPINE L1-L4: Total BMD is 1.258 g/cm2 T-score is 0.5 This is 9.5% change in comparison to prior exam which is statistically significant. LEFT HIP: Total BMD is 0.951 g/cm2 T-score is -0.4 This is 8.8% change in comparison to prior exam which is statistically significant. Femoral neck BMD is 0.930 g/cm2 T-score is -0.8 FRAX: 10 year risk for a major osteoporotic fracture is 12.2 %, 10 year risk for a hip fracture is 1.1 % THIS IS AN ELECTRONICALLY VERIFIED FINAL REPORT 04/29/2023 12:00 PM - Electronically signed by Wilfrid Farfan M.D. AG: PAU Report ID: [id number] Reading Location: [id number] IMPRESSION: Normal bone density. REFERENCE: Bone mineral density: Normal (T-score above or = -1.0) Low bone mass (T-score between -1.0 and -2.5) replaces the previously used term osteopenia Osteoporosis (T-score = or below -2.5) Medical evaluation for secondary causes of low bone mineral density may be appropriate. FRAX is a World Health Organization validated fracture risk assessment tool that calculates a person's 10 year probability of a major osteoporosis related fracture and hip fracture. According to the National Osteoporosis Foundation guidelines, postmenopausal women and men age 50 or older with low bone mass and a 10 year probability of a major osteoporosis related fracture = or greater than 20% or a 10 year probability of a hip fracture = or greater than 3% should be considered for treatment. For further information, including treatment recommendations, please refer to the 2019 ISCD Official Positions (http://www.iscd.org) and the NOF's Clinician's Guide to Prevention and Treatment of Osteoporosis (http://www.nof.org/professionals/clinical-guidelines) Jeremias Dillon MD IMG DEXA ORDERABLES Final Resul t from Last 3 Months or Most Recently Relevant to Health Maintenance Insurance MEDICARE [place] Care Teams Fireworks Inspector Relationship Specialty Start Date End Date Jeremias Dillon MD [address] [facility] [address] [place] [address] PCP - General Internal Medicine 07/05/23 Jeremias Dillon MD [address] [facility] [address] [place] [address] Internal Medicine 07/08/21
--- OUTSIDE RECORDS SUMMARY | 2024-10-24 09:01 | XMS_ITS | Encounter Summary ---
Author Organization [facility] Address [address] [place] [address] Phone Care Team Providers Care Drill Press Operator Name Role Phone Provider, Unknown Primary Care Provider Unavaila ble Jeremias Dillon MD Unavailable [phone] Tashi Fuller MD Primary Care Provider [phone] Jeremias Dillon MD Primary Care Provider [phone] Encounter Details Date Type Department Care Team (Late st Contact Info) Description 03/10/2022 Lab Requisition [facility] Laboratory Services 1 [place] [phone] Tashi Fuller MD [address] [place] [address] [facility] [address] [place] [address] Encounter for screening for COVID-19 [...] 12:00 PM CDT [facility] 1 [place] [phone] Jeremias Dillon MD [address] [place] [address] documented as of this encounter Procedures Procedure Name Priority Date/Time Associated Diagnosis Comments SARS-COV-2 BY MOLECULAR Routine 03/10/2022 7:38 AM CDT Encounter for screening for COVID-19 documented in this encounter Results * SARS-COV-2 BY MOLECULAR (03/10/2022 7:38 AM CDT) SARSCOV2 NOT DETECTED (Referen ce Range for this test is Not Detected ) [facility] THERMOFISHER FAST DX 03/11/2022 9:26 AM CDT [facility] Comment:This test was perfor med by a RT-PCR method. Other Non-Phlebotomy Collection / Unknown 03/10/2022 7:38 AM CDT 03/10/2022 2:23 PM CDT Narrative [facility] - 03/11/2022 9:26 AM CDT Authorized Fact Sheets about this test for providers and patients are available at: https://www.fda.gov/medical-devices/qymdhzsyp-chjhujjbps-ubqwcde-devices/emergen -us e-authorizations us Tashi Fuller MD MICROBIOLOGY - GENERAL ORDERAB LES Final Result [facility] [address] [place] [address], documented in this encounter Visit Diagnoses Diagnosis Encounter for screening for COVID-19 documented in this encounter Additional Health Concerns Infection Onset Date Last Indicated Resolved Time COVID - 19 12/16/2021 06/23/2022 07/03/2022 12:1 6 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 COVID - 19 08/11/2022 10/27/2022 11/06/2022 12:1 6 AM CDT documented as of this encounter Care Teams Drill Press Operator Relationship Specialty Start Date End Date Provider, Unknown UNKNOWN PCP - General 07/08/21 04/12/22 Tashi Fuller MD [address] [facility] [address] [place] [address] PCP - General Family Medicine 04/13/22 07/04/23 Jeremias Dillon MD [address] [facility] [address] [place] [address] PCP - General Internal Medicine 07/05/23 Jeremias Dillon MD [address] [facility] [address] [place] [address] Internal Medicine 07/08/21 documented as of this encounter
== END 2024-10-24 08:33 | disposition home or self-care (01) ==
LOC: ANHBWCAUD 08:40
DX: H91.3 Deaf nonspeaking, not elsewhere classified (principal)
CPT/HCPCS: 99199